=== PATIENT | female | born 1965 ===

== ENCOUNTER 2018-07-16 20:30 | Inpatient (IN) | payer OTHER ==
[2018-07-16 20:31] VITALS: BMI 54.3
[2018-07-16] MEDS ORDERED: Naloxone 0.4 mg/ml Inj (Adult) ONE (20:41)
[2018-07-16] MEDS ORDERED: Naloxone 0.4 mg/ml Inj (Adult) IVP ONE (20:57)
[2018-07-16 21:01] LABS: BASO # 0.2 K/uL (0.0-0.2); BASO % 0.8 % (0.0-2.0); EOS # 0.3 K/uL (0.0-0.7); EOS % 1.3 % (0.0-4.0); HEMOGLOBIN 15.5 g/dL (11.0-16.0); LYMPH # 10.5 K/uL (1.0-4.3); LYMPH % 46.8 % (20.0-40.0); MEAN CELL VOLUME 81.1 fL (81.0-99.0); MEAN CORPUSCULAR HGB CONC 32.1 g/dL (33.0-37.0); MONO # 1.1 K/uL (0.0-0.8); MONO % 4.9 % (0.0-10.0); NEUT # 10.3 K/uL (1.8-7.0); NEUT % 46.2 % (50.0-75.0); NRBC % 0.2 % (0.0-2.0); RBC 5.95 Mil/uL (3.80-5.20); RED CELL DISTRIBUTION WIDTH 15.5 % (11.5-14.5)
[2018-07-16 21:10] LABS: WHITE BLOOD COUNT 22.4 K/uL (4.8-10.8)
[2018-07-16] MEDS ORDERED: Sodium Chloride 0.9% 1,000 ML IV ONE ×2 (21:12→21:38)
[2018-07-16 21:13] LABS: INR 1.1; PROTHROMBIN TIME 12.3 SECONDS (9.7-12.2)
[2018-07-16 21:14] LABS: ACETAMINOPHEN < 10.0 ug/mL (10.0-30.0); SALICYLATE < 1.0 {null, mg/dL 1}
[2018-07-16] MEDS ORDERED: Hum Prothrombin CPLX(PCC)4FACT 1 Unit Inj IV ONE ×4 (21:37→22:00)
[2018-07-16] MEDS ORDERED: Propofol 10 mg/ml 1,000 MG/100 ML VIAL IV PRN (21:40)
[2018-07-16 21:49] LABS: ARTERIAL BLOOD GAS HCO3 22.2 mmol/L (21-28); ARTERIAL BLOOD GAS O2 SAT 100.2 % (95-98); ARTERIAL BLOOD GAS PCO2 33 mm/Hg (35-45); ARTERIAL BLOOD GAS PO2 294 mm/Hg (80-100); ARTERIAL BLOOD GAS TCO2 21.4 mmol/L (22-28)
[2018-07-16 21:54] LABS: BARBITURATES, UR NEGATIVE (NEGATIVE); BENZODIAZEPINES, UR NEGATIVE (NEGATIVE); OPIATES, UR NEGATIVE (NEGATIVE); PHENCYCLIDINE, UR NEGATIVE (NEGATIVE)
[2018-07-16 22:11] LABS: ALB/GLOB RATIO 1.2 (1.0-2.1); ALBUMIN 3.3 g/dL (3.5-5.0); ALT/SGPT 13 U/L (9-52); AST/SGOT 21 U/L (14-36); BLOOD UREA NITROGEN 20 mg/dL (7-17); CALCIUM 8.6 mg/dl (8.6-10.4); GFR NON-AFRICAN AMERICAN > 60
--- NOTE | 2018-07-16 22:11 | C.PDOC ---
History Of Present Illness 52-year-old female is brought to the ED by EMS for evaluation of altered mental status. As per friend at bedside, patient was at a food bank meeting when she suddenly became unresponsive. EMS was called and patient was brought into the ED by BLS. Patient arrived to the ED unresponsive and required my immediate attention. Additional information limited secondary to patient's clinical condition. Time Seen by Provider: 07/16/18 20:51 Chief Complaint (Nursing): Altered Mental Status History Per: EMS, Other (friend ) History/Exam Limitations: Other (clinical condition ) Onset Of Symptoms: Cannot Confirm Onset Current Symptoms Are (Timing): Still Present Usual Baseline: Unknown Exacerbating Factor(s): Unknown Past Medical History Reviewed: Historical Data, Nursing Documentation, Vital Signs Vital Signs: Last Vital Signs Temp Pulse 86 07/16/18 22:08 Resp 12 07/16/18 22:08 BP 87/61 L 07/16/18 22:08 Pulse Ox 100 07/16/18 22:08 - Medical History PMH: Anemia, Asthma, HTN, Peripheral Edema, Sleep Apnea (NO LONGER HAS IT) Denies: Chronic Kidney Disease Surgical History: Endoscopy - [facility] Procedures COLONOSCOPY (01/06/14) DESTRUCT PERITONEAL TISS (01/04/15) ESOPHAGOGASTRODUODENOSCOPY [EGD] W/CLOSED BIOPSY (01/06/14) LAPAROSCOP LYSIS-PERITONEAL ADHES (01/04/15) LAPAROSCOP REMOVE OVARIES/TUBES (11/02/13) LAPAROSCOPIC REPAIR OF DIAPHRAGMATIC HRN, ABDOMINAL APPROACH (01/04/15) LAPAROSCOPIC ROBOTIC ASSISTED PROCEDURE (01/04/15) LAPAROSCOPIC TOTAL ABDOMINAL HYSTERECTOMY (11/02/13) LAPAROSCOPIC VERTICAL (SLEEVE) GASTRECTOMY (01/04/15) LAPAROTOMY NEC (01/04/15) OTHER ENDOSCOPY OF SM INTEST (01/04/15) VACCINATION NEC (11/02/13) Family History: States: Unknown Family Hx - Social History Hx Alcohol Use: No Hx Substance Use: No - Immunization History Hx Tetanus Toxoid Vaccination: No Hx Influenza Vaccination: No Hx Pneumococcal Vaccination: No Review Of Systems Review Of Systems: ROS cannot be obtained secondary to pt's inabilty to answer questions. Physical Exam - Physical Exam Appears: Non-toxic, In Acute Distress Skin: Normal Color, Warm, Dry Head: Atraumatic, Normacephalic Eye(s): bilateral: Other (pupils dilated, non-reactive ) Oral Mucosa: Moist Lips: Normal Appearing Teeth: Normal Dentition Neck: Normal Chest: Symmetrical Cardiovascular: Rhythm Regular Respiratory: Other (coarse bs bilaterally ) Back: Normal Inspection Neurological/Psych: Other (unresponsive ) ED Course And Treatment - Laboratory Results Result Diagrams: 07/17/18 07:15 07/17/18 07:11 Lab Results: Puncture Site Rra 07/16/18 21:46 pCO2 33 mm/Hg (35-45) L 07/16/18 21:46 pO2 294 mm/Hg (80-100) H 07/16/18 21:46 HCO3 22.2 mmol/L (21-28) 07/16/18 21:46 ABG pH 7.40 (7.35-7.45) 07/16/18 21:46 ABG Total CO2 21.4 mmol/L (22-28) L 07/16/18 21:46 ABG O2 Saturation 100.2 % (95-98) H 07/16/18 21:46 ABG Base Excess -3.6 mmol/L (-2.0-3.0) L 07/16/18 21:46 Leobardo Test Na 07/16/18 21:46 ABG Potassium 2.4 mmol/L (3.6-5.2) L* 07/16/18 21:46 A-a O2 Difference 378.0 mm/Hg 07/16/18 21:46 Respiratory Index 1.3 07/16/18 21:46 Sodium 140.0 mmol/l (132-148) 07/16/18 21:46 Chloride 112.0 mmol/L (98-107) H 07/16/18 21:46 Glucose 141 mg/dl (65-105) H 07/16/18 21:46 Lactate 1.6 mmol/L (0.7-2.1) 07/16/18 21:46 Vent Mode Prvc 07/16/18 21:46 Mechanical Rate 12 07/16/18 21:46 FiO2 100.0 % 07/16/18 21:46 Tidal Volume 600 07/16/18 21:46 PEEP 5 07/16/18 21:46 Crit Value Called To Funmilayo gray rn 07/16/18 21:46 Crit Value Called By Cony 07/16/18 21:46 Crit Value Read Back Y 07/16/18 21:46 Blood Gas Notified Time 214807/16/18 21:46 PT 12.3 SECONDS (9.7-12.2) H 07/16/18 20:57 INR 1.1 07/16/18 20:57 APTT 34 SECONDS (21-34) 07/16/18 20:57 ECG: Interpreted By Me, Viewed By Me ECG Rhythm: Sinus Tachycardia Interpretation Of ECG: Sinus Tachycardia at rate 129bpm/ Left axis deviation. Frequent PVCs and LVH noted. Nonspecific ST/T wave changes. Rate From EC O2 Sat by Pulse Oximetry: 100 - CT Scan/US CT Head Other Rad Studies (CT/US): Read By Radiologist, Radiology Report Reviewed CT/US Interpretation: EXAM: CT Head without Intravenous Contrast. CLINICAL HISTORY: Unresponsive. TECHNIQUE: Axial computed tomography images of the head/brain without intravenous contrast. 0.00 mGy-cm. COMPARISON: None provided. FINDINGS: BRAIN. There may be a small amount of subdural l blood along the tentorium cerebelli and perhaps in the falx cerebri as well. VENTRICLES: There is acute hemorrhage within the left cerebral hemisphere in the frontoparietal region and extending near the [place]. This may represent bleeding from ruptured aneurysm in the [place]. The largest a conglomerate portion of the bleed measures 5.3 x 3.0 cm on series 2, image 11. There is extensive left to right midline shift measuring at least 8 mm. There is effacement of the left lateral ventricle. There is associated brain edema most notably near the main portion of the hemorrhage. There is additional effacement of the 4th ventricle. Cannot exclude cerebellar tonsillar herniation. There appears to be crowding of the cerebellar tonsils at the foramen magnum. ORBITS: The orbits are unremarkable. SINUSES AND MASTOIDS: The paranasal sinuses and mastoid air cells are clear. BONES: No fracture. SOFT TISSUES: Unremarkable. IMPRESSION: 1. There is acute hemorrhage within the left cerebral hemisphere in the frontoparietal region and extending near the [place]. This may represent bleeding from ruptured aneurysm in the [place]. The largest a conglomerate portion of the bleed measures 5.3 x 3.0 cm on series 2, image 11. There is extensive left to right midline shift measuring at least 8 mm. There is effacement of the left lateral ventricle. There is extensive associated brain edema most notably near the main portion of the hemorrhage. There is effacement of the 4th ventricle as well. 2. There may be a small amount of subdural l blood along the tentorium cerebelli and perhaps in the falx cerebri as well. 3. Cannot exclude cerebellar tonsillar herniation on the current study. 4. These critical findings are being immediately telephoned to the referring clinicians at the time of this interpretation. Critical Care Time - Critical Care Note Total Time (in mins): 55 Documented critical care: time excludes all time spent performing seperately billable procedures. Endotracheal Intubation - Endotracheal Intubation Intubated: Orally Post-Intubation Assessment: ETT Secured AT (cm): (22), Breath Sounds Equal Bilat, Placement Confirmed Via CXR, Color Change W/End Tidal CO2 Detector Medical Decision Making Medical Decision Making: Impression: 52 year old female, unresponsive Plan: * bloodwork * CT Head * reassess and disposition Progress: A time-out was completed verifying correct patient, procedure, site, positioning, and special equipment if applicable. A 6.5-gibraltarian endotracheal tube was inserted and good condensation of the tube noted. Good end-tidal CO2 noted. Breath sounds were heard in both lung chanel equally. The endotracheal tube was placed at 22 cm, measured at the lip. CXR: shows no active disease. Tip of ET tube at the melissa. Case immediately discussed with Dr. Michael Muhammad (Medical Clerical Assistant collection systems modeler), who evaluated the patient at bedside. CT Head results demonstrated as reported. Case discussed with Dr. Flores (neurosurgeon collection systems modeler), who states patient does not qualify as a surgical candidate. Case discussed with Dr. Reis. Patient accepted to the ICU for admission. vice president of manufacturing notified. Disposition Discussed With : Edwardo Reis Jr. Doctor Will See Patient In The: Hospital Counseled Patient/Family Regarding: Studies Performed, Diagnosis - Disposition Disposition: HOSPITALIZED Disposition Time: 22:11 Condition: FAIR - Clinical Impression Clinical Impression: Intracranial hemorrhage - Scribe Statement The provider has reviewed the documentation as recorded by the Scribe (Amada Muhammad) Provider Attestation: All medical record entries made by the Scribe were at my direction and personally dictated by me. I have reviewed the chart and agree that the record accurately reflects my personal performance of the history, physical exam, medical decision making, and the department course for this patient. I have also personally directed, reviewed, and agree with the discharge instructions and disposition.
[2018-07-16 22:21] LABS: B-TYPE NATRIURETIC PEPTIDE 296 pg/mL (0-900)
--- NOTE | 2018-07-16 22:45 | CP.PCM.HP ---
History of Present Illness - History of Present Illness History of Present Illness: H&P for Dr. Reis. 52-year-old female is brought to the ED by EMS for evaluation of altered mental status. History is obtained via chart review and family members due to clinical condition. Reportedly, patient was at a meeting with a friend when she suddenly became unresponsive. EMS was called and patient was brought into the ED by BLS. Patient was intubated in the field. Unable to obtain further hx PMHx: HNT PSHx: Gastric sleeve Family Hx: grandmother-stroke Social hx: Family denies tobacco, alcohol, drugs, works as a home health aide Meds: unkown Allergies: NKDA Present on Admission - Present on Admission Any Indicators Present on Admission: No Review of Systems - Review of Systems Systems not reviewed;Unavailable: Intubated Past Patient History - Infectious Disease Hx of Infectious Diseases: None - Past Medical History & Family History Past Medical History?: Yes - Past Social History Smoking Status: Never Smoked - CARDIAC Hx Hypertension: Yes Hx Peripheral Edema: Yes - PULMONARY Hx Asthma: Yes Hx Sleep Apnea: Yes (NO LONGER HAS IT) - NEUROLOGICAL Hx Neurological Disorder: No - HEENT Hx HEENT Problems: Yes (NEARSIGHTEDNESS) - RENAL Hx Chronic Kidney Disease: No - ENDOCRINE/METABOLIC Hx Endocrine Disorders: No - HEMATOLOGICAL/ONCOLOGICAL Hx Anemia: Yes - INTEGUMENTARY Hx Dermatological Problems: No - MUSCULOSKELETAL/RHEUMATOLOGICAL Hx Musculoskeletal Disorders: Yes Hx Back Pain: Yes Hx Herniated Disk: Yes (LUMBAR SPINE) - GASTROINTESTINAL Hx Gastrointestinal Disorders: No - GENITOURINARY/GYNECOLOGICAL Hx Genitourinary Disorders: Yes (HX FIBROID UTERUS HYSTERECTOMY) - PSYCHIATRIC Hx Substance Use: No - SURGICAL HISTORY Hx Surgeries: Yes (EPIDURAL INJECTION IN BACK 11/27/13) Hx Section: Yes (1985, 1989, 1990) Hx Dilation and Curettage: Yes (2010, 2013) Hx Gastric Bypass Surgery: Yes (GASTRIC SLEEVE) Hx Hysterectomy: Yes Hx Tubal Ligation: Yes (1990) - ANESTHESIA Hx Anesthesia: Yes Hx Anesthesia Reactions: No Hx Malignant Hyperthermia: No Meds Allergies/Adverse Reactions: Allergies Allergy/AdvReac Type Severity Reaction Status Date / Time No Known Allergies Allergy Verified 07/16/18 20:42 Physical Exam - Constitutional Appears: Other (Intubated and sedated) - Head Exam Head Exam: ATRAUMATIC, NORMOCEPHALIC - Eye Exam Additional comments: Pubils are dilated and unresponsive to light. - Respiratory Exam Respiratory Exam: Clear to Auscultation Bilateral. absent: Rales, Rhonchi, Wheezes Additional comments: Intubated. Rate 12, volume 0.5, Peep 5, FiO2 - Cardiovascular Exam Cardiovascular Exam: REGULAR RHYTHM, +S1, +S2 - GI/Abdominal Exam GI & Abdominal Exam: Soft. absent: Guarding, Rebound, Tenderness Additional comments: surgical scare well healed - Extremities Exam Extremities exam: Positive for: normal inspection, pedal pulses present. Negative for: pedal edema, tenderness - Neurological Exam Additional comments: Intubated, sedated, Pupils dilated and non reactive, no corneal reflex, no dolls eyes, no gag reflex. Does not withdraw to pain Results - Vital Signs Recent Vital Signs: Last Vital Signs Temp 97.0 F L 07/16/18 22:42 Pulse 84 07/16/18 22:42 Resp 12 07/16/18 22:42 BP 117/85 07/16/18 22:42 Pulse Ox 100 07/16/18 22:43 - Labs Result Diagrams: 07/17/18 07:15 07/17/18 07:11 Labs: Laboratory Results - last 24 hr 07/16/18 07/16/18 07/16/18 20:33 20:57 20:57 WBC 22.4 H D RBC 5.95 H Hgb 15.5 D Hct 48.2 H MCV 81.1 D MCH 26.0 L MCHC 32.1 L RDW 15.5 H Plt Count 428 H D MPV 10.0 Neut % (Auto) 46.2 L Lymph % (Auto) 46.8 H [place] % (Auto) 4.9 Eos % (Auto) 1.3 Baso % (Auto) 0.8 Neut # (Auto) 10.3 H Lymph # (Auto) 10.5 H [place] # (Auto) 1.1 H Eos # (Auto) 0.3 Baso # (Auto) 0.2 Differential Comment PT 12.3 H INR 1.1 APTT 34 Puncture Site pCO2 pO2 HCO3 ABG pH ABG Total CO2 ABG O2 Saturation ABG Base Excess Leobardo Test ABG Potassium A-a O2 Difference Respiratory Index Glucose Lactate Vent Mode Mechanical Rate FiO2 Tidal Volume PEEP Crit Value Called To Crit Value Called By Crit Value Read Back Blood Gas Notified Time Sodium Potassium Chloride Carbon Dioxide Anion Gap BUN Creatinine Est GFR ( Amer) Est GFR (Non-Af Amer) POC Glucose (mg/dL) 155 H Random Glucose Lactic Acid Calcium Phosphorus Magnesium Total Bilirubin AST ALT Alkaline Phosphatase Ammonia Troponin I NT-Pro-B Natriuret Pep Total Protein Albumin Globulin Albumin/Globulin Ratio Arterial Blood Potassium Salicylates Urine Opiates Screen Urine Methadone Screen Acetaminophen Ur Barbiturates Screen Ur Phencyclidine Scrn Ur Amphetamines Screen U Benzodiazepines Scrn U Oth Cocaine Metabols U Cannabinoids Screen Alcohol, Quantitative Blood Type Antibody Screen 07/16/18 07/16/18 07/16/18 20:57 20:57 21:21 WBC RBC Hgb Hct MCV MCH MCHC RDW Plt Count MPV Neut % (Auto) Lymph % (Auto) [place] % (Auto) Eos % (Auto) Baso % (Auto) Neut # (Auto) Lymph # (Auto) [place] # (Auto) Eos # (Auto) Baso # (Auto) Differential Comment PT INR APTT Puncture Site pCO2 pO2 HCO3 ABG pH ABG Total CO2 ABG O2 Saturation ABG Base Excess Leobardo Test ABG Potassium A-a O2 Difference Respiratory Index Glucose Lactate Vent Mode Mechanical Rate FiO2 Tidal Volume PEEP Crit Value Called To Crit Value Called By Crit Value Read Back Blood Gas Notified Time Sodium Potassium Chloride Carbon Dioxide Anion Gap BUN Creatinine Est GFR ( Amer) Est GFR (Non-Af Amer) POC Glucose (mg/dL) Random Glucose Lactic Acid Calcium Phosphorus Magnesium Total Bilirubin AST ALT Alkaline Phosphatase Ammonia Troponin I NT-Pro-B Natriuret Pep Total Protein Albumin Globulin Albumin/Globulin Ratio Arterial Blood Potassium Salicylates < 1.0 Urine Opiates Screen Negative Urine Methadone Screen Negative Acetaminophen < 10.0 L Ur Barbiturates Screen Negative Ur Phencyclidine Scrn Negative Ur Amphetamines Screen Negative U Benzodiazepines Scrn Negative U Oth Cocaine Metabols Negative U Cannabinoids Screen Negative Alcohol, Quantitative Blood Type A POSITIVE Antibody Screen Negative 07/16/18 07/16/18 07/16/18 21:43 21:43 21:43 WBC RBC Hgb Hct MCV MCH MCHC RDW Plt Count MPV Neut % (Auto) Lymph % (Auto) [place] % (Auto) Eos % (Auto) Baso % (Auto) Neut # (Auto) Lymph # (Auto) [place] # (Auto) Eos # (Auto) Baso # (Auto) Differential Comment PT INR APTT Puncture Site pCO2 pO2 HCO3 ABG pH ABG Total CO2 ABG O2 Saturation ABG Base Excess Leobardo Test ABG Potassium A-a O2 Difference Respiratory Index Glucose Lactate Vent Mode Mechanical Rate FiO2 Tidal Volume PEEP Crit Value Called To Crit Value Called By Crit Value Read Back Blood Gas Notified Time Sodium 138 Potassium 2.9 L Chloride 108 H Carbon Dioxide 21 L Anion Gap 12 BUN 20 H Creatinine 0.8 Est GFR ( Amer) > 60 Est GFR (Non-Af Amer) > 60 POC Glucose (mg/dL) Random Glucose 147 H D Lactic Acid 1.8 Calcium 8.6 Phosphorus 4.2 Magnesium 1.8 Total Bilirubin 0.3 AST 21 ALT 13 Alkaline Phosphatase 72 Ammonia < 9 L Troponin I 0.0400 NT-Pro-B Natriuret Pep 296 Total Protein 5.9 L Albumin 3.3 L Globulin 2.6 Albumin/Globulin Ratio 1.2 Arterial Blood Potassium Salicylates Urine Opiates Screen Urine Methadone Screen Acetaminophen Ur Barbiturates Screen Ur Phencyclidine Scrn Ur Amphetamines Screen U Benzodiazepines Scrn U Oth Cocaine Metabols U Cannabinoids Screen Alcohol, Quantitative < 10 Blood Type Antibody Screen 07/16/18 21:46 WBC RBC Hgb Hct MCV MCH MCHC RDW Plt Count MPV Neut % (Auto) Lymph % (Auto) [place] % (Auto) Eos % (Auto) Baso % (Auto) Neut # (Auto) Lymph # (Auto) [place] # (Auto) Eos # (Auto) Baso # (Auto) Differential Comment PT INR APTT Puncture Site Rra pCO2 33 L pO2 294 H HCO3 22.2 ABG pH 7.40 ABG Total CO2 21.4 L ABG O2 Saturation 100.2 H ABG Base Excess -3.6 L Leobardo Test Na ABG Potassium 2.4 L* A-a O2 Difference 378.0 Respiratory Index 1.3 Glucose 141 H Lactate 1.6 Vent Mode Prvc Mechanical Rate 12 FiO2 100.0 Tidal Volume 600 PEEP 5 Crit Value Called To Funmilayo gray rn Crit Value Called By Cony Crit Value Read Back Y Blood Gas Notified Time 2149 Sodium 140.0 Potassium Chloride 112.0 H Carbon Dioxide Anion Gap BUN Creatinine Est GFR ( Amer) Est GFR (Non-Af Amer) POC Glucose (mg/dL) Random Glucose Lactic Acid Calcium Phosphorus Magnesium Total Bilirubin AST ALT Alkaline Phosphatase Ammonia Troponin I NT-Pro-B Natriuret Pep Total Protein Albumin Globulin Albumin/Globulin Ratio Arterial Blood Potassium 2.4 L* Salicylates Urine Opiates Screen Urine Methadone Screen Acetaminophen Ur Barbiturates Screen Ur Phencyclidine Scrn Ur Amphetamines Screen U Benzodiazepines Scrn U Oth Cocaine Metabols U Cannabinoids Screen Alcohol, Quantitative Blood Type Antibody Screen Assessment & Plan - Assessment and Plan (Free Text) Plan: 52 year old female with acute intracranial hemorrhage Intracranial hemorrhage CT head: Hemorrhage to L cerebral hemisphere. L to R midline shift (see full report) Neurosurgery consulted- Patient not surgical candidate ICU consulted- patient accepted Intubated Propofol drip Hypotension Nicardine drip NS @ 75mls/hr PPx SCD Protonix VTE contraindicated Dispo: poor prognosis Discussed with Dr. Smiley Frank, PGY-1
[2018-07-16] MEDS ORDERED: cefTRIAXone 2 GM IN NS 2 GM/100 ML BAG IVPB SCH (23:30)
--- NOTE | 2018-07-16 23:55 | CP.PCM.CON ---
History of Present Illness - History of Present Illness History of Present Illness: 52 y/o female with unknown PMx presents to [facility] found unconscious and was intubated in the field. ICU consulted for evaluation. Patient not responsive, pupils not reactive. Patient is not responsive. ROS: limited 2nd AMS Pmx: reviewed, unable to obtain. Psurg: gastric surgery Allergeis: known SH: [email or web address] Review of Systems - Review of Systems Systems not reviewed;Unavailable: Intubated Past Patient History - Infectious Disease Hx of Infectious Diseases: None - Tetanus Immunizations Tetanus Immunization: Unknown - Past Medical History & Family History Past Medical History?: Yes - Past Social History Smoking Status: Never Smoked - CARDIAC Hx Hypertension: Yes Hx Peripheral Edema: Yes - PULMONARY Hx Asthma: Yes Hx Sleep Apnea: Yes (NO LONGER HAS IT) - NEUROLOGICAL Hx Neurological Disorder: No - HEENT Hx HEENT Problems: Yes (NEARSIGHTEDNESS) - RENAL Hx Chronic Kidney Disease: No - ENDOCRINE/METABOLIC Hx Endocrine Disorders: No - HEMATOLOGICAL/ONCOLOGICAL Hx Anemia: Yes - INTEGUMENTARY Hx Dermatological Problems: No - MUSCULOSKELETAL/RHEUMATOLOGICAL Hx Musculoskeletal Disorders: Yes Hx Back Pain: Yes Hx Herniated Disk: Yes (LUMBAR SPINE) - GASTROINTESTINAL Hx Gastrointestinal Disorders: No - GENITOURINARY/GYNECOLOGICAL Hx Genitourinary Disorders: Yes (HX FIBROID UTERUS HYSTERECTOMY) - PSYCHIATRIC Hx Substance Use: No - SURGICAL HISTORY Hx Surgeries: Yes (EPIDURAL INJECTION IN BACK 11/27/13) Hx Section: Yes (1985, 1989, 1990) Hx Dilation and Curettage: Yes (2010, 2013) Hx Gastric Bypass Surgery: Yes (GASTRIC SLEEVE) Hx Hysterectomy: Yes Hx Tubal Ligation: Yes (1990) - ANESTHESIA Hx Anesthesia: Yes Hx Anesthesia Reactions: No Hx Malignant Hyperthermia: No Meds Allergies/Adverse Reactions: Allergies Allergy/AdvReac Type Severity Reaction Status Date / Time No Known Allergies Allergy Verified 07/16/18 20:42 - Medications Medications: Current Medications Albuterol/Ipratropium (Duoneb 3 Mg/0.5 Mg (3 Ml) Ud) 3 ml INH RQ6 DONALDO Sodium Chloride (Sodium Chloride 0.9%) 1,000 mls @ 75 mls/hr IV .[id number] ONE Stop: 07/17/18 10:57 Last Admin: 07/16/18 22:00 Dose: 75 mls/hr Levetiracetam 500 mg/ Dextrose 105 mls @ 420 mls/hr IVPB Q12H DONALDO Last Admin: 07/16/18 22:00 Dose: 420 mls/hr Propofol (Diprivan) 1,000 mg in 100 mls @ 2.858 mls/hr IV .Q24H PRN; Protocol PRN Reason: TITRATE PER MD ORDER Vancomycin/Sodium Chloride (Vancomycin 1 Gm/Ns 200 Ml) 1 gm in 200 mls @ 133 mls/hr IVPB Q12H DONALDO; Protocol Stop: 07/22/18 00:01 Ceftriaxone Sodium 2 gm/ (Sodium Chloride) 100 mls @ 200 mls/hr IVPB Q12H DONALDO; Protocol Physical Exam - Constitutional Appears: Non-toxic, No Acute Distress - Head Exam Head Exam: ATRAUMATIC, NORMAL INSPECTION, NORMOCEPHALIC - Eye Exam Eye Exam: Normal appearance Pupil Exam: Fixed. absent: Miosis, Mydriatic, NORMAL ACCOMODATION, PERRL - ENT Exam ENT Exam: Mucous Membranes Moist - Respiratory Exam Respiratory Exam: Clear to Auscultation Bilateral, NORMAL BREATHING PATTERN. absent: Rhonchi, Wheezes, Respiratory Distress, Stridor - Cardiovascular Exam Cardiovascular Exam: REGULAR RHYTHM, +S1, +S2 - GI/Abdominal Exam GI & Abdominal Exam: Normal Bowel Sounds - Extremities Exam Extremities exam: Positive for: normal inspection - Neurological Exam Neurological exam: Altered - Skin Skin Exam: Normal Color, Warm Results - Vital Signs Recent Vital Signs: Last Vital Signs Temp 97.0 F L 07/16/18 22:42 Pulse 84 07/16/18 22:42 Resp 12 07/16/18 22:42 BP 117/85 07/16/18 22:42 Pulse Ox 100 07/16/18 22:43 - Labs Result Diagrams: 07/16/18 20:57 07/16/18 21:43 Labs: Laboratory Results - last 24 hr 07/16/18 07/16/18 07/16/18 20:33 20:57 20:57 WBC 22.4 H D RBC 5.95 H Hgb 15.5 D Hct 48.2 H MCV 81.1 D MCH 26.0 L MCHC 32.1 L RDW 15.5 H Plt Count 428 H D MPV 10.0 Neut % (Auto) 46.2 L Lymph % (Auto) 46.8 H Terry % (Auto) 4.9 Eos % (Auto) 1.3 Baso % (Auto) 0.8 Neut # (Auto) 10.3 H Lymph # (Auto) 10.5 H Terry # (Auto) 1.1 H Eos # (Auto) 0.3 Baso # (Auto) 0.2 Differential Comment PT 12.3 H INR 1.1 APTT 34 Fibrinogen Puncture Site pCO2 pO2 HCO3 ABG pH ABG Total CO2 ABG O2 Saturation ABG Base Excess Leobardo Test ABG Potassium A-a O2 Difference Respiratory Index Glucose Lactate Vent Mode Mechanical Rate FiO2 Tidal Volume PEEP Crit Value Called To Crit Value Called By Crit Value Read Back Blood Gas Notified Time Sodium Potassium Chloride Carbon Dioxide Anion Gap BUN Creatinine Est GFR ( Amer) Est GFR (Non-Af Amer) POC Glucose (mg/dL) 155 H Random Glucose Lactic Acid Calcium Phosphorus Magnesium Total Bilirubin AST ALT Alkaline Phosphatase Ammonia Troponin I NT-Pro-B Natriuret Pep Total Protein Albumin Globulin Albumin/Globulin Ratio Arterial Blood Potassium Salicylates Urine Opiates Screen Urine Methadone Screen Acetaminophen Ur Barbiturates Screen Ur Phencyclidine Scrn Ur Amphetamines Screen U Benzodiazepines Scrn U Oth Cocaine Metabols U Cannabinoids Screen Alcohol, Quantitative Blood Type Antibody Screen 07/16/18 07/16/18 07/16/18 20:57 20:57 21:21 WBC RBC Hgb Hct MCV MCH MCHC RDW Plt Count MPV Neut % (Auto) Lymph % (Auto) Terry % (Auto) Eos % (Auto) Baso % (Auto) Neut # (Auto) Lymph # (Auto) Terry # (Auto) Eos # (Auto) Baso # (Auto) Differential Comment PT INR APTT Fibrinogen Puncture Site pCO2 pO2 HCO3 ABG pH ABG Total CO2 ABG O2 Saturation ABG Base Excess Leobardo Test ABG Potassium A-a O2 Difference Respiratory Index Glucose Lactate Vent Mode Mechanical Rate FiO2 Tidal Volume PEEP Crit Value Called To Crit Value Called By Crit Value Read Back Blood Gas Notified Time Sodium Potassium Chloride Carbon Dioxide Anion Gap BUN Creatinine Est GFR ( Amer) Est GFR (Non-Af Amer) POC Glucose (mg/dL) Random Glucose Lactic Acid Calcium Phosphorus Magnesium Total Bilirubin AST ALT Alkaline Phosphatase Ammonia Troponin I NT-Pro-B Natriuret Pep Total Protein Albumin Globulin Albumin/Globulin Ratio Arterial Blood Potassium Salicylates < 1.0 Urine Opiates Screen Negative Urine Methadone Screen Negative Acetaminophen < 10.0 L Ur Barbiturates Screen Negative Ur Phencyclidine Scrn Negative Ur Amphetamines Screen Negative U Benzodiazepines Scrn Negative U Oth Cocaine Metabols Negative U Cannabinoids Screen Negative Alcohol, Quantitative Blood Type A POSITIVE Antibody Screen Negative 07/16/18 07/16/18 07/16/18 21:43 21:43 21:43 WBC RBC Hgb Hct MCV MCH MCHC RDW Plt Count MPV Neut % (Auto) Lymph % (Auto) Terry % (Auto) Eos % (Auto) Baso % (Auto) Neut # (Auto) Lymph # (Auto) Terry # (Auto) Eos # (Auto) Baso # (Auto) Differential Comment PT INR APTT Fibrinogen Puncture Site pCO2 pO2 HCO3 ABG pH ABG Total CO2 ABG O2 Saturation ABG Base Excess Leobardo Test ABG Potassium A-a O2 Difference Respiratory Index Glucose Lactate Vent Mode Mechanical Rate FiO2 Tidal Volume PEEP Crit Value Called To Crit Value Called By Crit Value Read Back Blood Gas Notified Time Sodium 138 Potassium 2.9 L Chloride 108 H Carbon Dioxide 21 L Anion Gap 12 BUN 20 H Creatinine 0.8 Est GFR ( Amer) > 60 Est GFR (Non-Af Amer) > 60 POC Glucose (mg/dL) Random Glucose 147 H D Lactic Acid 1.8 Calcium 8.6 Phosphorus 4.2 Magnesium 1.8 Total Bilirubin 0.3 AST 21 ALT 13 Alkaline Phosphatase 72 Ammonia < 9 L Troponin I 0.0400 NT-Pro-B Natriuret Pep 296 Total Protein 5.9 L Albumin 3.3 L Globulin 2.6 Albumin/Globulin Ratio 1.2 Arterial Blood Potassium Salicylates Urine Opiates Screen Urine Methadone Screen Acetaminophen Ur Barbiturates Screen Ur Phencyclidine Scrn Ur Amphetamines Screen U Benzodiazepines Scrn U Oth Cocaine Metabols U Cannabinoids Screen Alcohol, Quantitative < 10 Blood Type Antibody Screen 07/16/18 07/16/18 21:46 22:56 WBC RBC Hgb Hct MCV MCH MCHC RDW Plt Count MPV Neut % (Auto) Lymph % (Auto) Terry % (Auto) Eos % (Auto) Baso % (Auto) Neut # (Auto) Lymph # (Auto) Terry # (Auto) Eos # (Auto) Baso # (Auto) Differential Comment PT INR APTT Fibrinogen 221 Puncture Site Rra pCO2 33 L pO2 294 H HCO3 22.2 ABG pH 7.40 ABG Total CO2 21.4 L ABG O2 Saturation 100.2 H ABG Base Excess -3.6 L Leobardo Test Na ABG Potassium 2.4 L* A-a O2 Difference 378.0 Respiratory Index 1.3 Glucose 141 H Lactate 1.6 Vent Mode Prvc Mechanical Rate 12 FiO2 100.0 Tidal Volume 600 PEEP 5 Crit Value Called To Funmilayo gray rn Crit Value Called By Cony Crit Value Read Back Y Blood Gas Notified Time 2148 Sodium 140.0 Potassium Chloride 112.0 H Carbon Dioxide Anion Gap BUN Creatinine Est GFR ( Amer) Est GFR (Non-Af Amer) POC Glucose (mg/dL) Random Glucose Lactic Acid Calcium Phosphorus Magnesium Total Bilirubin AST ALT Alkaline Phosphatase Ammonia Troponin I NT-Pro-B Natriuret Pep Total Protein Albumin Globulin Albumin/Globulin Ratio Arterial Blood Potassium 2.4 L* Salicylates Urine Opiates Screen Urine Methadone Screen Acetaminophen Ur Barbiturates Screen Ur Phencyclidine Scrn Ur Amphetamines Screen U Benzodiazepines Scrn U Oth Cocaine Metabols U Cannabinoids Screen Alcohol, Quantitative Blood Type Antibody Screen Assessment & Plan - Assessment and Plan (Free Text) Assessment: -Severe ICH: infuse kecentra, maintain SBP <120, avoid antiplatelets and anticoagulants -HTN: start cardene to keep SBP <120 -NPO -BGM q6hrs -DVT ppx scds -PUD ppx protonix -GOC: patient's daughter was informed patient's condition, neurosurgery environmental health technologist was called who advised that patient has poor prognosis and will not benefit from intra-ventricular drain GOC: d/w daughter Alexis, who recommended to transfer patient to [facility] Called: [facility] transfer [phone], no beds available. Prognosis poor as GSC score 0-1, fixed and dilated pupils. -Daughters informed of patient's prognosis, Daughters insist on transfer to [facility] - Date & Time Date: 07/17/18 Time: 00:09
[2018-07-17] MEDS: niCARdipine IV 25 MG in Sodium Chloride 0.9% 240 ML IV SCH ×5 (00:30→20:35)
[2018-07-17] MEDS: cefTRIAXone 2 GM in Sodium Chloride 0.9% 100 ML IVPB SCH ×3 (00:45→23:01)
[2018-07-17] MEDS: Potassium Chloride 20 mEq/15 ml LIQ UD PO SCH ×2 (01:05→06:55)
[2018-07-17] MEDS: Vancomycin 1 gm/NS 200 ml 1 GM/200 ML BAG IVPB SCH ×3 (01:39→23:17)
--- NOTE | 2018-07-17 03:45 | PCM.SEPTIC ---
Sepsis Progress Note - Reassessment Type Date of Evaluation: 07/17/18 Reassessment Type: Non-invasive reassessment - Non Invasive Reassessment Were the most recent vital sign reviewed: Yes Vital Sign (Latest): Temp Pulse Resp BP Pulse Ox 96 F L 74 12 127/89 100 07/16/18 23:51 07/17/18 03:30 07/17/18 03:30 07/17/18 02:44 07/17/18 03:30 Cardiovascular: Yes: Regular Rate, Rhythm. No: JVD, Murmur, Tachycardia, Ectopy Respiratory: Yes: Normal Breath Sounds. No: Crackles, Rales, Rhonchi, Stridor Capillary Refill: Normal (Less than 2 sec) Pulses: Normal Radial, Normal Dorsalis Pedis, Normal Posterior Tibialis Skin: Normal Color - Invasive Reassessment (complete 2 of 4) Was a Central Venous Pressure Measurement obtained within 6 Hours after the presentation of septic shock: No Was a central venous oxygen measurement obtained within 6 hours after the presentation of septic shock: No Was a bedside cardiovascular ultrasound performed within 6 hours after the presentation of septic shock: No Was a passive leg raise performed or was a fluid challenge performed within 6 hrs of the initial fluid bolus: No Fluid Challenge performed: Yes
[2018-07-17] MEDS ORDERED: Iodixanol 320 MG/ML 100 ML BOTTLE IV ONE (05:27)
[2018-07-17 06:26] LABS: ABG ALLEN TEST POS; ARTERIAL BLOOD GAS HCO3 20.6 mmol/L (21-28); ARTERIAL BLOOD GAS HEMOGLOBIN 13.6 g/dL (11.7-17.4); ARTERIAL BLOOD GAS O2 SAT 100.2 % (95-98); ARTERIAL BLOOD GAS PCO2 35 mm/Hg (35-45); ARTERIAL BLOOD GAS PH 7.35 (7.35-7.45); ARTERIAL BLOOD GAS PO2 221 mm/Hg (80-100); ARTERIAL BLOOD GAS TCO2 20.4 mmol/L (22-28)
--- NOTE | 2018-07-17 07:17 | CP.PCM.CON ---
History of Present Illness - History of Present Illness History of Present Illness: spoke with ER,Dr Muhammad and Pt'S daughter unfotunately there is nothing to offer this Pt clinically is or close to brain CT shows scatterd ICH,SAH in and around brainstem no hydrocephalusand overt herniation would rec supportive care only consider cerebral blood flow study/contact sharing network Past Patient History - Infectious Disease Hx of Infectious Diseases: None - Tetanus Immunizations Tetanus Immunization: Unknown - Past Medical History & Family History Past Medical History?: Yes - Past Social History Smoking Status: Never Smoked - CARDIAC Hx Hypertension: Yes Hx Peripheral Edema: Yes - PULMONARY Hx Asthma: Yes Hx Sleep Apnea: Yes (NO LONGER HAS IT) - NEUROLOGICAL Hx Neurological Disorder: No - HEENT Hx HEENT Problems: Yes (NEARSIGHTEDNESS) - RENAL Hx Chronic Kidney Disease: No - ENDOCRINE/METABOLIC Hx Endocrine Disorders: No - HEMATOLOGICAL/ONCOLOGICAL Hx Anemia: Yes - INTEGUMENTARY Hx Dermatological Problems: No - MUSCULOSKELETAL/RHEUMATOLOGICAL Hx Musculoskeletal Disorders: Yes Hx Back Pain: Yes Hx Herniated Disk: Yes (LUMBAR SPINE) - GASTROINTESTINAL Hx Gastrointestinal Disorders: No - GENITOURINARY/GYNECOLOGICAL Hx Genitourinary Disorders: Yes (HX FIBROID UTERUS HYSTERECTOMY) - PSYCHIATRIC Hx Substance Use: No - SURGICAL HISTORY Hx Surgeries: Yes (EPIDURAL INJECTION IN BACK 11/27/13) Hx Section: Yes (1985, 1989, 1990) Hx Dilation and Curettage: Yes (2010, 2013) Hx Gastric Bypass Surgery: Yes (GASTRIC SLEEVE) Hx Hysterectomy: Yes Hx Tubal Ligation: Yes (1990) - ANESTHESIA Hx Anesthesia: Yes Hx Anesthesia Reactions: No Hx Malignant Hyperthermia: No Meds Allergies/Adverse Reactions: Allergies Allergy/AdvReac Type Severity Reaction Status Date / Time No Known Allergies Allergy Verified 07/16/18 20:42 - Medications Medications: Current Medications Albuterol/Ipratropium (Duoneb 3 Mg/0.5 Mg (3 Ml) Ud) 3 ml INH RQ6 DONALDO Dexamethasone (Decadron Inj) 10 mg IVP ONCE ONE Stop: 07/17/18 07:10 Dexamethasone (Decadron Inj) 4 mg IV Q6H DONALDO Sodium Chloride (Sodium Chloride 0.9%) 1,000 mls @ 75 mls/hr IV .[id number] ONE Stop: 07/17/18 10:57 Last Admin: 07/16/18 22:00 Dose: 75 mls/hr Levetiracetam 500 mg/ Dextrose 105 mls @ 420 mls/hr IVPB Q12H DONALDO Last Admin: 07/16/18 22:00 Dose: 420 mls/hr Propofol (Diprivan) 1,000 mg in 100 mls @ 2.858 mls/hr IV .Q24H PRN; Protocol PRN Reason: TITRATE PER MD ORDER Vancomycin/Sodium Chloride (Vancomycin 1 Gm/Ns 200 Ml) 1 gm in 200 mls @ 133 mls/hr IVPB Q12H DONALDO; Protocol Stop: 07/22/18 00:01 Last Admin: 07/17/18 01:39 Dose: 133 mls/hr Ceftriaxone Sodium 2 gm/ (Sodium Chloride) 100 mls @ 200 mls/hr IVPB Q12H DONALDO; Protocol Last Admin: 07/17/18 00:45 Dose: 200 mls/hr Nicardipine HCl 25 mg/ Sodium (Chloride) 250 mls @ 50 mls/hr IV .Q5H DONALDO; Protocol Last Admin: 07/17/18 05:02 Dose: Not Given Mannitol (Mannitol) 50 gm IV ONCE ONE Stop: 07/17/18 07:05 Pantoprazole Sodium (Protonix Inj) 40 mg IVP Q12H DONALDO Last Admin: 07/17/18 03:30 Dose: 40 mg Potassium Chloride (Potassium Chloride Oral Soln) 40 meq PO Q6H DONALDO Stop: 07/17/18 19:01 Last Admin: 07/17/18 01:05 Dose: 40 meq Results - Vital Signs Recent Vital Signs: Last Vital Signs Temp 96 F L 07/16/18 23:51 Pulse 74 07/17/18 03:30 Resp 12 07/17/18 03:30 BP 127/89 07/17/18 02:44 Pulse Ox 100 07/17/18 03:30 - Labs Result Diagrams: 07/16/18 20:57 07/16/18 21:43 Labs: Laboratory Results - last 24 hr 07/16/18 07/16/18 07/16/18 20:33 20:57 20:57 WBC 22.4 H D RBC 5.95 H Hgb 15.5 D Hct 48.2 H MCV 81.1 D MCH 26.0 L MCHC 32.1 L RDW 15.5 H Plt Count 428 H D MPV 10.0 Neut % (Auto) 46.2 L Lymph % (Auto) 46.8 H Radford % (Auto) 4.9 Eos % (Auto) 1.3 Baso % (Auto) 0.8 Neut # (Auto) 10.3 H Lymph # (Auto) 10.5 H [place]ford # (Auto) 1.1 H Eos # (Auto) 0.3 Baso # (Auto) 0.2 Differential Comment PT 12.3 H INR 1.1 APTT 34 Fibrinogen Puncture Site pCO2 pO2 HCO3 ABG pH ABG Total CO2 ABG O2 Saturation ABG Base Excess ABG Hemoglobin ABG Carboxyhemoglobin POC ABG HHb (Measured) ABG Methemoglobin Leobardo Test ABG Potassium A-a O2 Difference Respiratory Index Hgb O2 Saturation Glucose Lactate Vent Mode Mechanical Rate FiO2 Tidal Volume PEEP Crit Value Called To Crit Value Called By Crit Value Read Back Blood Gas Notified Time Sodium Potassium Chloride Carbon Dioxide Anion Gap BUN Creatinine Est GFR ( Amer) Est GFR (Non-Af Amer) POC Glucose (mg/dL) 155 H Random Glucose Lactic Acid Calcium Phosphorus Magnesium Total Bilirubin AST ALT Alkaline Phosphatase Ammonia Troponin I NT-Pro-B Natriuret Pep Total Protein Albumin Globulin Albumin/Globulin Ratio Arterial Blood Potassium Salicylates Urine Opiates Screen Urine Methadone Screen Acetaminophen Ur Barbiturates Screen Ur Phencyclidine Scrn Ur Amphetamines Screen U Benzodiazepines Scrn U Oth Cocaine Metabols U Cannabinoids Screen Alcohol, Quantitative Blood Type Antibody Screen 07/16/18 07/16/18 07/16/18 20:57 20:57 21:21 WBC RBC Hgb Hct MCV MCH MCHC RDW Plt Count MPV Neut % (Auto) Lymph % (Auto) [place] % (Auto) Eos % (Auto) Baso % (Auto) Neut # (Auto) Lymph # (Auto) [place] # (Auto) Eos # (Auto) Baso # (Auto) Differential Comment PT INR APTT Fibrinogen Puncture Site pCO2 pO2 HCO3 ABG pH ABG Total CO2 ABG O2 Saturation ABG Base Excess ABG Hemoglobin ABG Carboxyhemoglobin POC ABG HHb (Measured) ABG Methemoglobin Leobardo Test ABG Potassium A-a O2 Difference Respiratory Index Hgb O2 Saturation Glucose Lactate Vent Mode Mechanical Rate FiO2 Tidal Volume PEEP Crit Value Called To Crit Value Called By Crit Value Read Back Blood Gas Notified Time Sodium Potassium Chloride Carbon Dioxide Anion Gap BUN Creatinine Est GFR ( Amer) Est GFR (Non-Af Amer) POC Glucose (mg/dL) Random Glucose Lactic Acid Calcium Phosphorus Magnesium Total Bilirubin AST ALT Alkaline Phosphatase Ammonia Troponin I NT-Pro-B Natriuret Pep Total Protein Albumin Globulin Albumin/Globulin Ratio Arterial Blood Potassium Salicylates < 1.0 Urine Opiates Screen Negative Urine Methadone Screen Negative Acetaminophen < 10.0 L Ur Barbiturates Screen Negative Ur Phencyclidine Scrn Negative Ur Amphetamines Screen Negative U Benzodiazepines Scrn Negative U Oth Cocaine Metabols Negative U Cannabinoids Screen Negative Alcohol, Quantitative Blood Type A POSITIVE Antibody Screen Negative 07/16/18 07/16/18 07/16/18 21:43 21:43 21:43 WBC RBC Hgb Hct MCV MCH MCHC RDW Plt Count MPV Neut % (Auto) Lymph % (Auto) [place] % (Auto) Eos % (Auto) Baso % (Auto) Neut # (Auto) Lymph # (Auto) [place] # (Auto) Eos # (Auto) Baso # (Auto) Differential Comment PT INR APTT Fibrinogen Puncture Site pCO2 pO2 HCO3 ABG pH ABG Total CO2 ABG O2 Saturation ABG Base Excess ABG Hemoglobin ABG Carboxyhemoglobin POC ABG HHb (Measured) ABG Methemoglobin Leobardo Test ABG Potassium A-a O2 Difference Respiratory Index Hgb O2 Saturation Glucose Lactate Vent Mode Mechanical Rate FiO2 Tidal Volume PEEP Crit Value Called To Crit Value Called By Crit Value Read Back Blood Gas Notified Time Sodium 138 Potassium 2.9 L Chloride 108 H Carbon Dioxide 21 L Anion Gap 12 BUN 20 H Creatinine 0.8 Est GFR ( Amer) > 60 Est GFR (Non-Af Amer) > 60 POC Glucose (mg/dL) Random Glucose 147 H D Lactic Acid 1.8 Calcium 8.6 Phosphorus 4.2 Magnesium 1.8 Total Bilirubin 0.3 AST 21 ALT 13 Alkaline Phosphatase 72 Ammonia < 9 L Troponin I 0.0400 NT-Pro-B Natriuret Pep 296 Total Protein 5.9 L Albumin 3.3 L Globulin 2.6 Albumin/Globulin Ratio 1.2 Arterial Blood Potassium Salicylates Urine Opiates Screen Urine Methadone Screen Acetaminophen Ur Barbiturates Screen Ur Phencyclidine Scrn Ur Amphetamines Screen U Benzodiazepines Scrn U Oth Cocaine Metabols U Cannabinoids Screen Alcohol, Quantitative < 10 Blood Type Antibody Screen 07/16/18 07/16/18 07/17/18 21:46 22:56 02:19 WBC RBC Hgb Hct MCV MCH MCHC RDW Plt Count MPV Neut % (Auto) Lymph % (Auto) [place] % (Auto) Eos % (Auto) Baso % (Auto) Neut # (Auto) Lymph # (Auto) [place] # (Auto) Eos # (Auto) Baso # (Auto) Differential Comment PT INR APTT Fibrinogen 221 Puncture Site Rra pCO2 33 L pO2 294 H HCO3 22.2 ABG pH 7.40 ABG Total CO2 21.4 L ABG O2 Saturation 100.2 H ABG Base Excess -3.6 L ABG Hemoglobin ABG Carboxyhemoglobin POC ABG HHb (Measured) ABG Methemoglobin Leobardo Test Na ABG Potassium 2.4 L* A-a O2 Difference 378.0 Respiratory Index 1.3 Hgb O2 Saturation Glucose 141 H Lactate 1.6 Vent Mode Prvc Mechanical Rate 12 FiO2 100.0 Tidal Volume 600 PEEP 5 Crit Value Called To Funmilayo gray rn Crit Value Called By Cony Crit Value Read Back Y Blood Gas Notified Time 2148 Sodium 140.0 Potassium Chloride 112.0 H Carbon Dioxide Anion Gap BUN Creatinine Est GFR ( Amer) Est GFR (Non-Af Amer) POC Glucose (mg/dL) 139 H Random Glucose Lactic Acid Calcium Phosphorus Magnesium Total Bilirubin AST ALT Alkaline Phosphatase Ammonia Troponin I NT-Pro-B Natriuret Pep Total Protein Albumin Globulin Albumin/Globulin Ratio Arterial Blood Potassium 2.4 L* Salicylates Urine Opiates Screen Urine Methadone Screen Acetaminophen Ur Barbiturates Screen Ur Phencyclidine Scrn Ur Amphetamines Screen U Benzodiazepines Scrn U Oth Cocaine Metabols U Cannabinoids Screen Alcohol, Quantitative Blood Type Antibody Screen 07/17/18 07/17/18 05:14 06:03 WBC RBC Hgb Hct MCV MCH MCHC RDW Plt Count MPV Neut % (Auto) Lymph % (Auto) [place] % (Auto) Eos % (Auto) Baso % (Auto) Neut # (Auto) Lymph # (Auto) [place] # (Auto) Eos # (Auto) Baso # (Auto) Differential Comment PT INR APTT Fibrinogen Puncture Site Rr pCO2 35 pO2 221 H HCO3 20.6 L ABG pH 7.35 ABG Total CO2 20.4 L ABG O2 Saturation 100.2 H ABG Base Excess -5.6 L ABG Hemoglobin 13.6 ABG Carboxyhemoglobin 1.4 POC ABG HHb (Measured) -0.2 L ABG Methemoglobin 0.5 Leobardo Test Pos ABG Potassium A-a O2 Difference 92.0 Respiratory Index 0.4 Hgb O2 Saturation 98.2 H Glucose Lactate Vent Mode Prvc Mechanical Rate 12 FiO2 50.0 Tidal Volume 500 PEEP 5 Crit Value Called To Crit Value Called By Crit Value Read Back Blood Gas Notified Time Sodium Potassium Chloride Carbon Dioxide Anion Gap BUN Creatinine Est GFR ( Amer) Est GFR (Non-Af Amer) POC Glucose (mg/dL) 146 H Random Glucose Lactic Acid Calcium Phosphorus Magnesium Total Bilirubin AST ALT Alkaline Phosphatase Ammonia Troponin I NT-Pro-B Natriuret Pep Total Protein Albumin Globulin Albumin/Globulin Ratio Arterial Blood Potassium Salicylates Urine Opiates Screen Urine Methadone Screen Acetaminophen Ur Barbiturates Screen Ur Phencyclidine Scrn Ur Amphetamines Screen U Benzodiazepines Scrn U Oth Cocaine Metabols U Cannabinoids Screen Alcohol, Quantitative Blood Type Antibody Screen
[2018-07-17 07:20] LABS: BASO % 0.2 % (0.0-2.0); LYMPH # 1.2 K/uL (1.0-4.3); LYMPH % 6.3 % (20.0-40.0); MEAN CELL VOLUME 80.8 fL (81.0-99.0); MEAN CORPUSCULAR HEMOGLOBIN 26.4 pg (27.0-31.0); MEAN CORPUSCULAR HGB CONC 32.6 g/dL (33.0-37.0); MEAN PLATELET VOLUME 10.1 fL (7.2-11.7); MONO # 0.9 K/uL (0.0-0.8); MONO % 4.6 % (0.0-10.0); NEUT # 17.1 K/uL (1.8-7.0); NEUT % 88.9 % (50.0-75.0); RED CELL DISTRIBUTION WIDTH 15.4 % (11.5-14.5); WHITE BLOOD COUNT 19.2 K/uL (4.8-10.8)
[2018-07-17 07:28] LABS: HEMOGLOBIN 13.2 g/dL (11.0-16.0); PLATELET COUNT 291 K/uL (130-400)
[2018-07-17] MEDS ORDERED: Dexamethasone 4 mg/1 ml IV SCH ×2 (07:30→12:00)
[2018-07-17] MEDS ORDERED: Mannitol 12.5 gm/50 ml Inj IV ONE ×2 (07:30→08:30)
[2018-07-17] MEDS: Albuterol-Ipratrop 3 mg / 0.5 (3 ml) UD INH SCH ×3 (07:44→20:44)
[2018-07-17 07:50] LABS: INR 1.1
[2018-07-17 08:13] LABS: ALB/GLOB RATIO 1.2 (1.0-2.1); ALBUMIN 3.8 g/dL (3.5-5.0); CALCIUM 9.3 mg/dl (8.6-10.4)
--- NOTE | 2018-07-17 08:19 | CT ---
Date of service: 07/16/2018 PROCEDURE: CT HEAD WITHOUT CONTRAST. HISTORY: dizziness COMPARISON: TECHNIQUE: Axial computed tomography images were obtained through the head/brain without intravenous contrast. Radiation dose: Total exam DLP = 988.43 mGy-cm. This CT exam was performed using one or more of the following dose reduction techniques: Automated exposure control, adjustment of the mA and/or kV according to patient size, and/or use of iterative reconstruction technique. FINDINGS: HEMORRHAGE: There are foci of acute parenchymal hemorrhage in the right basal ganglia right coronal radiata centrum semiovale that also extending to the medial and midportion of the left temporal and frontal lobes. The largest focus of intraparenchymal hemorrhage measures approximately 4.6 x 3.1 centimeter. There are also foci of subarachnoid hemorrhage noted in both cerebral hemisphere. There is a focus of the hemorrhage also noted in the anterior superior aspect of posterior fossa likely anterior to 4th ventricle may involve the basilar cistern and prepontine cistern. There is linear high attenuation along the tentorial leaflets may represent small size subdural hematoma. BRAIN: There is diffuse effacement of the brain sulci noted. There is mass effect on the thecal and approximately 8 millimeter [id number] midline shift. There is a suspicious for transtentorial and uncal herniation. VENTRICLES: There is complete effacement of the 4th ventricle. The lateral ventricles are small in size. CALVARIUM: Unremarkable. PARANASAL SINUSES: Unremarkable as visualized. No significant inflammatory changes. MASTOID AIR CELLS: Unremarkable as visualized. No inflammatory changes. OTHER FINDINGS: None. IMPRESSION: Large intraparenchymal hemorrhage at the left cerebral hemisphere involving the left basal ganglia left centrum semiovale coronal radiata left temporal and frontal lobes. Large mass effect on the lateral ventricles and approximately 8 millimeter [id number] midline shift. Focal hemorrhage noted around the pontine and basilar cistern. Foci of subarachnoid hemorrhage and possible small amount of subdural hemorrhage along the tentorial leaflets. Diffuse effacement of the brain sulci suggestive of increased intracranial pressure . Suspicious for transtentorial and uncal brain herniation. Preliminary report was submitted by [facility] Radiology contains concordant findings.
--- NOTE | 2018-07-17 08:29 | CT ---
Date of service: 07/17/2018 PROCEDURE: CT HEAD WITHOUT CONTRAST. HISTORY: eval [facility] COMPARISON: Comparison is made to the previous study dated 07/16/2018 TECHNIQUE: Axial computed tomography images were obtained through the head/brain without intravenous contrast. Radiation dose: Total exam DLP = 1119.94 mGy-cm. This CT exam was performed using one or more of the following dose reduction techniques: Automated exposure control, adjustment of the mA and/or kV according to patient size, and/or use of iterative reconstruction technique. FINDINGS: HEMORRHAGE: Again noted are low large foci of parenchymal hemorrhage in the left cerebral hemisphere surrounding with edema and resulting in mass effect on the left lateral ventricle. Again noted are foci of subarachnoid hemorrhage. Again noted are foci of hemorrhage around the mountain and basilar cistern. There is high attenuation along the tentorial leaflets is again noted. BRAIN: There is diffuse effacement of the brain sulci. There is slight effacement of the suarez-white matter differentiation noted. Findings suggestive of increased intracranial pressure. Again noted is possible transtentorial and uncal brain herniation. There is diffuse effacement of the basilar and suprasellar cisterns. Again noted is approximately 8 millimeter [id number] midline shift. VENTRICLES: Colles are small in size. There is complete effacement of the 4th ventricle again noted. CALVARIUM: Unremarkable. PARANASAL SINUSES: Unremarkable as visualized. No significant inflammatory changes. MASTOID AIR CELLS: Unremarkable as visualized. No inflammatory changes. OTHER FINDINGS: The patient is status post intubation. IMPRESSION: Again noted is large intraparenchymal hemorrhage at the left cerebral hemisphere surrounding with edema and resulting in mass effect and approximately 8 millimeter [id number] midline shift. Subarachnoid hemorrhage and small subdural hemorrhage along tentorial leaflets. Diffuse effacement of the brain sulci suggestive of increased intracranial pressure. Findings are again suspicious for transtentorial and uncal brain herniation.
--- NOTE | 2018-07-17 08:34 | CP.CCUPN ---
<Ryan Flood - Last Filed: 07/17/18 18:51> CCU Subjective - Physician Review Subjective (Free Text): ICU Progress Note for Dr. Larson Pt seen and examined at bedside. Currently intubated and sedated. Unable to obtain ROS or further HPI due to pt's current clinical status. CCU Objective - Vital Signs / Intake & Output Vital Signs (Last 4 hours): Vital Signs Pulse Resp BP Pulse Ox 07/17/18 08:10 87 20 100 07/17/18 08:00 82 20 100 07/17/18 07:50 80 20 100 07/17/18 07:40 80 20 100 07/17/18 07:30 78 19 100 07/17/18 07:25 79 20 117/78 100 07/17/18 07:20 79 20 100 07/17/18 07:10 81 20 100 07/17/18 07:00 82 20 100 07/17/18 06:50 85 20 100 07/17/18 06:40 88 20 100 07/17/18 06:39 88 20 134/90 99 07/17/18 06:30 90 12 100 07/17/18 06:26 90 12 178/113 H 97 07/17/18 06:20 89 12 100 07/17/18 06:10 89 12 100 07/17/18 06:01 85 07/17/18 05:30 82 12 100 07/17/18 05:20 82 12 100 07/17/18 05:10 81 12 100 07/17/18 05:00 80 12 100 07/17/18 04:50 79 12 100 07/17/18 04:44 76 12 136/93 H 100 07/17/18 04:40 76 12 100 Intake and Output (Last 8hrs): Intake & Output 07/16/18 07/17/18 07/17/18 22:59 06:59 14:59 Intake Total 1450 125 Output Total 101 Balance 1349 125 Weight 210 lb 187 lb Intake: Intake, IV Amount 1450 125 Left Forearm 300 50 Right Antecubital 400 Right Hand 750 75 Output: Urine 100 Urine, Voided 100 Stool 1 Other: Voiding Method Incontinent # Bowel Movements 1 - Physical Exam Head: Positive for: Atraumatic, Normocephalic Pupils: Positive for: Non-Reactive Conjunctiva: Positive for: Normal Mouth: Positive for: Moist Mucous Membranes Neck: Positive for: Normal Range of Motion. Negative for: JVD Respiratory/Chest: Positive for: Clear to Auscultation. Negative for: Respiratory Distress, Wheezes, Rales, Rhonchi Cardiovascular: Positive for: Regular Rate and Rhythm, Normal S1, S2. Negative for: Murmurs, Rub, Gallop Abdomen: Positive for: Normal Bowel Sounds. Negative for: Tenderness, Disten tion, Mass/Organomegaly Upper Extremity: Positive for: Normal Inspection, Normal ROM, NORMAL PULSES, Neurovascularly Intact, Capillary Refill < 2s. Negative for: Cyanosis, Edema Lower Extremity: Positive for: Normal Inspection, NORMAL PULSES, Neurovascularly Intact, Capillary Refill < 2 s. Negative for: Edema Neurological: Positive for: Other (intubated and sedated) Skin: Positive for: Warm, Dry Psychiatric: Positive for: Other (intubated and sedated) - Medications Active Medications: Active Medications Generic Name Dose Route Start Last Admin Trade Name Freq PRN Reason Stop Dose Admin Albuterol/Ipratropium 3 ml 07/17/18 02:00 07/17/18 07:44 Duoneb 3 Mg/0.5 Mg (3 Ml) Ud INH 3 ml RQ6 DONALDO Administration Dexamethasone 4 mg 07/17/18 12:00 Decadron Inj IV Q6H DONALDO Sodium Chloride 1,000 mls @ 75 mls/hr 07/16/18 21:38 07/16/18 22:00 Sodium Chloride 0.9% IV 07/17/18 10:57 75 mls/hr .[id number] ONE Administration Levetiracetam 500 mg/ Dextrose 105 mls @ 420 mls/hr 07/16/18 21:45 07/16/18 22:00 IVPB 420 mls/hr Q12H DONALDO Administration Propofol 1,000 mg in 100 mls @ 2.858 mls/hr 07/16/18 21:40 Diprivan IV .Q24H PRN TITRATE PER MD ORDER Protocol 5 MCG/KG/MIN Vancomycin/Sodium Chloride 1 gm in 200 mls @ 133 mls/hr 07/17/18 00:00 07/17/18 01:39 Vancomycin 1 Gm/Ns 200 Ml IVPB 07/22/18 00:01 133 mls/hr Q12H DONALDO Administration Protocol Ceftriaxone Sodium 2 gm/ 100 mls @ 200 mls/hr 07/16/18 23:45 07/17/18 00:45 Sodium Chloride IVPB 200 mls/hr Q12H DONALDO Administration Protocol Nicardipine HCl 25 mg/ Sodium 250 mls @ 50 mls/hr 07/17/18 00:00 07/17/18 05:02 Chloride IV Not Given .Q5H DONALDO Protocol 5 MG/HR Pantoprazole Sodium 40 mg 07/17/18 02:30 07/17/18 03:30 Protonix Inj IVP 40 mg Q12H DONALDO Administration - Patient Studies Lab Studies: Lab Studies 07/17/18 07/17/18 07/17/18 Range/Units 07:15 07:11 07:11 WBC 19.2 H (4.8-10.8) K/uL RBC 5.00 (3.80-5.20) Mil/uL Hgb 13.2 D (11.0-16.0) g/dL Hct 40.4 (34.0-47.0) % MCV 80.8 L (81.0-99.0) fL MCH 26.4 L (27.0-31.0) pg MCHC 32.6 L (33.0-37.0) g/dL RDW 15.4 H (11.5-14.5) % Plt Count 291 D (130-400) K/uL MPV 10.1 (7.2-11.7) fL Neut % (Auto) 88.9 H (50.0-75.0) % Lymph % (Auto) 6.3 L (20.0-40.0) % [place] % (Auto) 4.6 (0.0-10.0) % Eos % (Auto) 0.0 (0.0-4.0) % Baso % (Auto) 0.2 (0.0-2.0) % Neut # (Auto) 17.1 H (1.8-7.0) K/uL Lymph # (Auto) 1.2 (1.0-4.3) K/uL [place] # (Auto) 0.9 H (0.0-0.8) K/uL Eos # (Auto) 0.0 (0.0-0.7) K/uL Baso # (Auto) 0.0 (0.0-0.2) K/uL Differential Comment PT (9.7-12.2) SECONDS INR APTT (21-34) SECONDS Fibrinogen (200-400) mg/dL Puncture Site pCO2 (35-45) mm/Hg pO2 (80-100) mm/Hg HCO3 (21-28) mmol/L ABG pH (7.35-7.45) ABG Total CO2 (22-28) mmol/L ABG O2 Saturation (95-98) % ABG Base Excess (-2.0-3.0) mmol/L ABG Hemoglobin (11.7-17.4) g/dL ABG Carboxyhemoglobin (0.5-1.5) % POC ABG HHb (Measured) (0.0-5.0) % ABG Methemoglobin (0.0-3.0) % Leobardo Test ABG Potassium (3.6-5.2) mmol/L A-a O2 Difference mm/Hg Respiratory Index Hgb O2 Saturation (95.0-98.0) % Glucose (65-105) mg/dl Lactate (0.7-2.1) mmol/L Vent Mode Mechanical Rate FiO2 % Tidal Volume PEEP Crit Value Called To Crit Value Called By Crit Value Read Back Blood Gas Notified Time Sodium 137 (132-148) mmol/L Potassium 6.5 H* D (3.6-5.2) mmol/L Chloride 111 H (98-107) mmol/L Carbon Dioxide 20 L (22-30) mmol/L Anion Gap 12 (10-20) BUN 24 H (7-17) mg/dL Creatinine 1.3 H (0.7-1.2) mg/dL Est GFR ( Amer) 52 Est GFR (Non-Af Amer) 43 POC Glucose (mg/dL) (65-110) mg/dL Random Glucose 152 H (65-105) mg/dL Lactic Acid 1.6 (0.7-2.1) mmol/L Calcium 9.3 (8.6-10.4) mg/dl Phosphorus 2.5 (2.5-4.5) mg/dL Magnesium 2.0 (1.6-2.3) mg/dL Total Bilirubin 0.5 (0.2-1.3) mg/dL AST 62 H D (14-36) U/L ALT 8 L D (9-52) U/L Alkaline Phosphatase 88 (38-126) U/L Ammonia (9-33) umol/L Troponin I (0.00-0.120) ng/mL NT-Pro-B Natriuret Pep (0-900) pg/mL Total Protein 6.9 (6.3-8.3) g/dL Albumin 3.8 (3.5-5.0) g/dL Globulin 3.1 (2.2-3.9) gm/dL Albumin/Globulin Ratio 1.2 (1.0-2.1) Arterial Blood Potassium (3.6-5.2) mmol/L Salicylates mg/dL 1 Urine Opiates Screen (NEGATIVE) Urine Methadone Screen (NEGATIVE) Acetaminophen (10.0-30.0) ug/mL Ur Barbiturates Screen (NEGATIVE) Ur Phencyclidine Scrn (NEGATIVE) Ur Amphetamines Screen (NEGATIVE) U Benzodiazepines Scrn (NEGATIVE) U Oth Cocaine Metabols (NEGATIVE) U Cannabinoids Screen (NEGATIVE) Alcohol, Quantitative (0-10) mg/dl Blood Type Antibody Screen 07/17/18 07/17/18 07/17/18 Range/Units 07:11 06:03 05:14 WBC (4.8-10.8) K/uL RBC (3.80-5.20) Mil/uL Hgb (11.0-16.0) g/dL Hct (34.0-47.0) % MCV (81.0-99.0) fL MCH (27.0-31.0) pg MCHC (33.0-37.0) g/dL RDW (11.5-14.5) % Plt Count (130-400) K/uL MPV (7.2-11.7) fL Neut % (Auto) (50.0-75.0) % Lymph % (Auto) (20.0-40.0) % [place] % (Auto) (0.0-10.0) % Eos % (Auto) (0.0-4.0) % Baso % (Auto) (0.0-2.0) % Neut # (Auto) (1.8-7.0) K/uL Lymph # (Auto) (1.0-4.3) K/uL [place] # (Auto) (0.0-0.8) K/uL Eos # (Auto) (0.0-0.7) K/uL Baso # (Auto) (0.0-0.2) K/uL Differential Comment PT 12.0 (9.7-12.2) SECONDS INR 1.1 APTT 34 (21-34) SECONDS Fibrinogen 318 (200-400) mg/dL Puncture Site Rr pCO2 35 (35-45) mm/Hg pO2 221 H (80-100) mm/Hg HCO3 20.6 L (21-28) mmol/L ABG pH 7.35 (7.35-7.45) ABG Total CO2 20.4 L (22-28) mmol/L ABG O2 Saturation 100.2 H (95-98) % ABG Base Excess -5.6 L (-2.0-3.0) mmol/L ABG Hemoglobin 13.6 (11.7-17.4) g/dL ABG Carboxyhemoglobin 1.4 (0.5-1.5) % POC ABG HHb (Measured) -0.2 L (0.0-5.0) % ABG Methemoglobin 0.5 (0.0-3.0) % Leobardo Test Pos ABG Potassium (3.6-5.2) mmol/L A-a O2 Difference 92.0 mm/Hg Respiratory Index 0.4 Hgb O2 Saturation 98.2 H (95.0-98.0) % Glucose (65-105) mg/dl Lactate (0.7-2.1) mmol/L Vent Mode Prvc Mechanical Rate 12 FiO2 50.0 % Tidal Volume 500 PEEP 5 Crit Value Called To Crit Value Called By Crit Value Read Back Blood Gas Notified Time Sodium (132-148) mmol/L Potassium (3.6-5.2) mmol/L Chloride (98-107) mmol/L Carbon Dioxide (22-30) mmol/L Anion Gap (10-20) BUN (7-17) mg/dL Creatinine (0.7-1.2) mg/dL Est GFR ( Amer) Est GFR (Non-Af Amer) POC Glucose (mg/dL) 146 H (65-110) mg/dL Random Glucose (65-105) mg/dL Lactic Acid (0.7-2.1) mmol/L Calcium (8.6-10.4) mg/dl Phosphorus (2.5-4.5) mg/dL Magnesium (1.6-2.3) mg/dL Total Bilirubin (0.2-1.3) mg/dL AST (14-36) U/L ALT (9-52) U/L Alkaline Phosphatase (38-126) U/L Ammonia (9-33) umol/L Troponin I (0.00-0.120) ng/mL NT-Pro-B Natriuret Pep (0-900) pg/mL Total Protein (6.3-8.3) g/dL Albumin (3.5-5.0) g/dL Globulin (2.2-3.9) gm/dL Albumin/Globulin Ratio (1.0-2.1) Arterial Blood Potassium (3.6-5.2) mmol/L Salicylates mg/dL 1 Urine Opiates Screen (NEGATIVE) Urine Methadone Screen (NEGATIVE) Acetaminophen (10.0-30.0) ug/mL Ur Barbiturates Screen (NEGATIVE) Ur Phencyclidine Scrn (NEGATIVE) Ur Amphetamines Screen (NEGATIVE) U Benzodiazepines Scrn (NEGATIVE) U Oth Cocaine Metabols (NEGATIVE) U Cannabinoids Screen (NEGATIVE) Alcohol, Quantitative (0-10) mg/dl Blood Type Antibody Screen 07/17/18 07/16/18 07/16/18 Range/Units 02:19 22:56 21:46 WBC (4.8-10.8) K/uL RBC (3.80-5.20) Mil/uL Hgb (11.0-16.0) g/dL Hct (34.0-47.0) % MCV (81.0-99.0) fL MCH (27.0-31.0) pg MCHC (33.0-37.0) g/dL RDW (11.5-14.5) % Plt Count (130-400) K/uL MPV (7.2-11.7) fL Neut % (Auto) (50.0-75.0) % Lymph % (Auto) (20.0-40.0) % [place] % (Auto) (0.0-10.0) % Eos % (Auto) (0.0-4.0) % Baso % (Auto) (0.0-2.0) % Neut # (Auto) (1.8-7.0) K/uL Lymph # (Auto) (1.0-4.3) K/uL [place] # (Auto) (0.0-0.8) K/uL Eos # (Auto) (0.0-0.7) K/uL Baso # (Auto) (0.0-0.2) K/uL Differential Comment PT (9.7-12.2) SECONDS INR APTT (21-34) SECONDS Fibrinogen 221 (200-400) mg/dL Puncture Site Rra pCO2 33 L (35-45) mm/Hg pO2 294 H (80-100) mm/Hg HCO3 22.2 (21-28) mmol/L ABG pH 7.40 (7.35-7.45) ABG Total CO2 21.4 L (22-28) mmol/L ABG O2 Saturation 100.2 H (95-98) % ABG Base Excess -3.6 L (-2.0-3.0) mmol/L ABG Hemoglobin (11.7-17.4) g/dL ABG Carboxyhemoglobin (0.5-1.5) % POC ABG HHb (Measured) (0.0-5.0) % ABG Methemoglobin (0.0-3.0) % Leobardo Test Na ABG Potassium 2.4 L* (3.6-5.2) mmol/L A-a O2 Difference 378.0 mm/Hg Respiratory Index 1.3 Hgb O2 Saturation (95.0-98.0) % Glucose 141 H (65-105) mg/dl Lactate 1.6 (0.7-2.1) mmol/L Vent Mode Prvc Mechanical Rate 12 FiO2 100.0 % Tidal Volume 600 PEEP 5 Crit Value Called To Funmilayo gray rn Crit Value Called By Cony Crit Value Read Back Y Blood Gas Notified Time 2148 Sodium 140.0 (132-148) mmol/L Potassium (3.6-5.2) mmol/L Chloride 112.0 H (98-107) mmol/L Carbon Dioxide (22-30) mmol/L Anion Gap (10-20) BUN (7-17) mg/dL Creatinine (0.7-1.2) mg/dL Est GFR ( Amer) Est GFR (Non-Af Amer) POC Glucose (mg/dL) 139 H (65-110) mg/dL Random Glucose (65-105) mg/dL Lactic Acid (0.7-2.1) mmol/L Calcium (8.6-10.4) mg/dl Phosphorus (2.5-4.5) mg/dL Magnesium (1.6-2.3) mg/dL Total Bilirubin (0.2-1.3) mg/dL AST (14-36) U/L ALT (9-52) U/L Alkaline Phosphatase (38-126) U/L Ammonia (9-33) umol/L Troponin I (0.00-0.120) ng/mL NT-Pro-B Natriuret Pep (0-900) pg/mL Total Protein (6.3-8.3) g/dL Albumin (3.5-5.0) g/dL Globulin (2.2-3.9) gm/dL Albumin/Globulin Ratio (1.0-2.1) Arterial Blood Potassium 2.4 L* (3.6-5.2) mmol/L Salicylates mg/dL 1 Urine Opiates Screen (NEGATIVE) Urine Methadone Screen (NEGATIVE) Acetaminophen (10.0-30.0) ug/mL Ur Barbiturates Screen (NEGATIVE) Ur Phencyclidine Scrn (NEGATIVE) Ur Amphetamines Screen (NEGATIVE) U Benzodiazepines Scrn (NEGATIVE) U Oth Cocaine Metabols (NEGATIVE) U Cannabinoids Screen (NEGATIVE) Alcohol, Quantitative (0-10) mg/dl Blood Type Antibody Screen 07/16/18 07/16/18 07/16/18 Range/Units 21:43 21:43 21:43 WBC (4.8-10.8) K/uL RBC (3.80-5.20) Mil/uL Hgb (11.0-16.0) g/dL Hct (34.0-47.0) % MCV (81.0-99.0) fL MCH (27.0-31.0) pg MCHC (33.0-37.0) g/dL RDW (11.5-14.5) % Plt Count (130-400) K/uL MPV (7.2-11.7) fL Neut % (Auto) (50.0-75.0) % Lymph % (Auto) (20.0-40.0) % [place] % (Auto) (0.0-10.0) % Eos % (Auto) (0.0-4.0) % Baso % (Auto) (0.0-2.0) % Neut # (Auto) (1.8-7.0) K/uL Lymph # (Auto) (1.0-4.3) K/uL [place] # (Auto) (0.0-0.8) K/uL Eos # (Auto) (0.0-0.7) K/uL Baso # (Auto) (0.0-0.2) K/uL Differential Comment PT (9.7-12.2) SECONDS INR APTT (21-34) SECONDS Fibrinogen (200-400) mg/dL Puncture Site pCO2 (35-45) mm/Hg pO2 (80-100) mm/Hg HCO3 (21-28) mmol/L ABG pH (7.35-7.45) ABG Total CO2 (22-28) mmol/L ABG O2 Saturation (95-98) % ABG Base Excess (-2.0-3.0) mmol/L ABG Hemoglobin (11.7-17.4) g/dL ABG Carboxyhemoglobin (0.5-1.5) % POC ABG HHb (Measured) (0.0-5.0) % ABG Methemoglobin (0.0-3.0) % Leobardo Test ABG Potassium (3.6-5.2) mmol/L A-a O2 Difference mm/Hg Respiratory Index Hgb O2 Saturation (95.0-98.0) % Glucose (65-105) mg/dl Lactate (0.7-2.1) mmol/L Vent Mode Mechanical Rate FiO2 % Tidal Volume PEEP Crit Value Called To Crit Value Called By Crit Value Read Back Blood Gas Notified Time Sodium 138 (132-148) mmol/L Potassium 2.9 L (3.6-5.2) mmol/L Chloride 108 H (98-107) mmol/L Carbon Dioxide 21 L (22-30) mmol/L Anion Gap 12 (10-20) BUN 20 H (7-17) mg/dL Creatinine 0.8 (0.7-1.2) mg/dL Est GFR ( Amer) > 60 Est GFR (Non-Af Amer) > 60 POC Glucose (mg/dL) (65-110) mg/dL Random Glucose 147 H D (65-105) mg/dL Lactic Acid 1.8 (0.7-2.1) mmol/L Calcium 8.6 (8.6-10.4) mg/dl Phosphorus 4.2 (2.5-4.5) mg/dL Magnesium 1.8 (1.6-2.3) mg/dL Total Bilirubin 0.3 (0.2-1.3) mg/dL AST 21 (14-36) U/L ALT 13 (9-52) U/L Alkaline Phosphatase 72 (38-126) U/L Ammonia < 9 L (9-33) umol/L Troponin I 0.0400 (0.00-0.120) ng/mL NT-Pro-B Natriuret Pep 296 (0-900) pg/mL Total Protein 5.9 L (6.3-8.3) g/dL Albumin 3.3 L (3.5-5.0) g/dL Globulin 2.6 (2.2-3.9) gm/dL Albumin/Globulin Ratio 1.2 (1.0-2.1) Arterial Blood Potassium (3.6-5.2) mmol/L Salicylates mg/dL 1 Urine Opiates Screen (NEGATIVE) Urine Methadone Screen (NEGATIVE) Acetaminophen (10.0-30.0) ug/mL Ur Barbiturates Screen (NEGATIVE) Ur Phencyclidine Scrn (NEGATIVE) Ur Amphetamines Screen (NEGATIVE) U Benzodiazepines Scrn (NEGATIVE) U Oth Cocaine Metabols (NEGATIVE) U Cannabinoids Screen (NEGATIVE) Alcohol, Quantitative < 10 (0-10) mg/dl Blood Type Antibody Screen 07/16/18 07/16/18 07/16/18 Range/Units 21:21 20:57 20:57 WBC (4.8-10.8) K/uL RBC (3.80-5.20) Mil/uL Hgb (11.0-16.0) g/dL Hct (34.0-47.0) % MCV (81.0-99.0) fL MCH (27.0-31.0) pg MCHC (33.0-37.0) g/dL RDW (11.5-14.5) % Plt Count (130-400) K/uL MPV (7.2-11.7) fL Neut % (Auto) (50.0-75.0) % Lymph % (Auto) (20.0-40.0) % [place] % (Auto) (0.0-10.0) % Eos % (Auto) (0.0-4.0) % Baso % (Auto) (0.0-2.0) % Neut # (Auto) (1.8-7.0) K/uL Lymph # (Auto) (1.0-4.3) K/uL [place] # (Auto) (0.0-0.8) K/uL Eos # (Auto) (0.0-0.7) K/uL Baso # (Auto) (0.0-0.2) K/uL Differential Comment PT (9.7-12.2) SECONDS INR APTT (21-34) SECONDS Fibrinogen (200-400) mg/dL Puncture Site pCO2 (35-45) mm/Hg pO2 (80-100) mm/Hg HCO3 (21-28) mmol/L ABG pH (7.35-7.45) ABG Total CO2 (22-28) mmol/L ABG O2 Saturation (95-98) % ABG Base Excess (-2.0-3.0) mmol/L ABG Hemoglobin (11.7-17.4) g/dL ABG Carboxyhemoglobin (0.5-1.5) % POC ABG HHb (Measured) (0.0-5.0) % ABG Methemoglobin (0.0-3.0) % Leobardo Test ABG Potassium (3.6-5.2) mmol/L A-a O2 Difference mm/Hg Respiratory Index Hgb O2 Saturation (95.0-98.0) % Glucose (65-105) mg/dl Lactate (0.7-2.1) mmol/L Vent Mode Mechanical Rate FiO2 % Tidal Volume PEEP Crit Value Called To Crit Value Called By Crit Value Read Back Blood Gas Notified Time Sodium (132-148) mmol/L Potassium (3.6-5.2) mmol/L Chloride (98-107) mmol/L Carbon Dioxide (22-30) mmol/L Anion Gap (10-20) BUN (7-17) mg/dL Creatinine (0.7-1.2) mg/dL Est GFR ( Amer) Est GFR (Non-Af Amer) POC Glucose (mg/dL) (65-110) mg/dL Random Glucose (65-105) mg/dL Lactic Acid (0.7-2.1) mmol/L Calcium (8.6-10.4) mg/dl Phosphorus (2.5-4.5) mg/dL Magnesium (1.6-2.3) mg/dL Total Bilirubin (0.2-1.3) mg/dL AST (14-36) U/L ALT (9-52) U/L Alkaline Phosphatase (38-126) U/L Ammonia (9-33) umol/L Troponin I (0.00-0.120) ng/mL NT-Pro-B Natriuret Pep (0-900) pg/mL Total Protein (6.3-8.3) g/dL Albumin (3.5-5.0) g/dL Globulin (2.2-3.9) gm/dL Albumin/Globulin Ratio (1.0-2.1) Arterial Blood Potassium (3.6-5.2) mmol/L Salicylates < 1.0 mg/dL 1 Urine Opiates Screen Negative (NEGATIVE) Urine Methadone Screen Negative (NEGATIVE) Acetaminophen < 10.0 L (10.0-30.0) ug/mL Ur Barbiturates Screen Negative (NEGATIVE) Ur Phencyclidine Scrn Negative (NEGATIVE) Ur Amphetamines Screen Negative (NEGATIVE) U Benzodiazepines Scrn Negative (NEGATIVE) U Oth Cocaine Metabols Negative (NEGATIVE) U Cannabinoids Screen Negative (NEGATIVE) Alcohol, Quantitative (0-10) mg/dl Blood Type A POSITIVE Antibody Screen Negative 07/16/18 07/16/18 07/16/18 Range/Units 20:57 20:57 20:33 WBC 22.4 H D (4.8-10.8) K/uL RBC 5.95 H (3.80-5.20) Mil/uL Hgb 15.5 D (11.0-16.0) g/dL Hct 48.2 H (34.0-47.0) % MCV 81.1 D (81.0-99.0) fL MCH 26.0 L (27.0-31.0) pg MCHC 32.1 L (33.0-37.0) g/dL RDW 15.5 H (11.5-14.5) % Plt Count 428 H D (130-400) K/uL MPV 10.0 (7.2-11.7) fL Neut % (Auto) 46.2 L (50.0-75.0) % Lymph % (Auto) 46.8 H (20.0-40.0) % [place] % (Auto) 4.9 (0.0-10.0) % Eos % (Auto) 1.3 (0.0-4.0) % Baso % (Auto) 0.8 (0.0-2.0) % Neut # (Auto) 10.3 H (1.8-7.0) K/uL Lymph # (Auto) 10.5 H (1.0-4.3) K/uL [place] # (Auto) 1.1 H (0.0-0.8) K/uL Eos # (Auto) 0.3 (0.0-0.7) K/uL Baso # (Auto) 0.2 (0.0-0.2) K/uL Differential Comment PT 12.3 H (9.7-12.2) SECONDS INR 1.1 APTT 34 (21-34) SECONDS Fibrinogen (200-400) mg/dL Puncture Site pCO2 (35-45) mm/Hg pO2 (80-100) mm/Hg HCO3 (21-28) mmol/L ABG pH (7.35-7.45) ABG Total CO2 (22-28) mmol/L ABG O2 Saturation (95-98) % ABG Base Excess (-2.0-3.0) mmol/L ABG Hemoglobin (11.7-17.4) g/dL ABG Carboxyhemoglobin (0.5-1.5) % POC ABG HHb (Measured) (0.0-5.0) % ABG Methemoglobin (0.0-3.0) % Leobardo Test ABG Potassium (3.6-5.2) mmol/L A-a O2 Difference mm/Hg Respiratory Index Hgb O2 Saturation (95.0-98.0) % Glucose (65-105) mg/dl Lactate (0.7-2.1) mmol/L Vent Mode Mechanical Rate FiO2 % Tidal Volume PEEP Crit Value Called To Crit Value Called By Crit Value Read Back Blood Gas Notified Time Sodium (132-148) mmol/L Potassium (3.6-5.2) mmol/L Chloride (98-107) mmol/L Carbon Dioxide (22-30) mmol/L Anion Gap (10-20) BUN (7-17) mg/dL Creatinine (0.7-1.2) mg/dL Est GFR ( Amer) Est GFR (Non-Af Amer) POC Glucose (mg/dL) 155 H (65-110) mg/dL Random Glucose (65-105) mg/dL Lactic Acid (0.7-2.1) mmol/L Calcium (8.6-10.4) mg/dl Phosphorus (2.5-4.5) mg/dL Magnesium (1.6-2.3) mg/dL Total Bilirubin (0.2-1.3) mg/dL AST (14-36) U/L ALT (9-52) U/L Alkaline Phosphatase (38-126) U/L Ammonia (9-33) umol/L Troponin I (0.00-0.120) ng/mL NT-Pro-B Natriuret Pep (0-900) pg/mL Total Protein (6.3-8.3) g/dL Albumin (3.5-5.0) g/dL Globulin (2.2-3.9) gm/dL Albumin/Globulin Ratio (1.0-2.1) Arterial Blood Potassium (3.6-5.2) mmol/L Salicylates mg/dL 1 Urine Opiates Screen (NEGATIVE) Urine Methadone Screen (NEGATIVE) Acetaminophen (10.0-30.0) ug/mL Ur Barbiturates Screen (NEGATIVE) Ur Phencyclidine Scrn (NEGATIVE) Ur Amphetamines Screen (NEGATIVE) U Benzodiazepines Scrn (NEGATIVE) U Oth Cocaine Metabols (NEGATIVE) U Cannabinoids Screen (NEGATIVE) Alcohol, Quantitative (0-10) mg/dl Blood Type Antibody Screen Laboratory Results - last 24 hr 07/16/18 07/16/18 07/16/18 20:33 20:57 20:57 WBC 22.4 H D RBC 5.95 H Hgb 15.5 D Hct 48.2 H MCV 81.1 D MCH 26.0 L MCHC 32.1 L RDW 15.5 H Plt Count 428 H D MPV 10.0 Neut % (Auto) 46.2 L Lymph % (Auto) 46.8 H [place] % (Auto) 4.9 Eos % (Auto) 1.3 Baso % (Auto) 0.8 Neut # (Auto) 10.3 H Lymph # (Auto) 10.5 H [place] # (Auto) 1.1 H Eos # (Auto) 0.3 Baso # (Auto) 0.2 Differential Comment PT 12.3 H INR 1.1 APTT 34 Fibrinogen Puncture Site pCO2 pO2 HCO3 ABG pH ABG Total CO2 ABG O2 Saturation ABG Base Excess ABG Hemoglobin ABG Carboxyhemoglobin POC ABG HHb (Measured) ABG Methemoglobin Leobardo Test ABG Potassium A-a O2 Difference Respiratory Index Hgb O2 Saturation Glucose Lactate Vent Mode Mechanical Rate FiO2 Tidal Volume PEEP Crit Value Called To Crit Value Called By Crit Value Read Back Blood Gas Notified Time Sodium Potassium Chloride Carbon Dioxide Anion Gap BUN Creatinine Est GFR ( Amer) Est GFR (Non-Af Amer) POC Glucose (mg/dL) 155 H Random Glucose Lactic Acid Calcium Phosphorus Magnesium Total Bilirubin AST ALT Alkaline Phosphatase Ammonia Troponin I NT-Pro-B Natriuret Pep Total Protein Albumin Globulin Albumin/Globulin Ratio Arterial Blood Potassium Salicylates Urine Opiates Screen Urine Methadone Screen Acetaminophen Ur Barbiturates Screen Ur Phencyclidine Scrn Ur Amphetamines Screen U Benzodiazepines Scrn U Oth Cocaine Metabols U Cannabinoids Screen Alcohol, Quantitative Blood Type Antibody Screen 07/16/18 07/16/18 07/16/18 20:57 20:57 21:21 WBC RBC Hgb Hct MCV MCH MCHC RDW Plt Count MPV Neut % (Auto) Lymph % (Auto) [place] % (Auto) Eos % (Auto) Baso % (Auto) Neut # (Auto) Lymph # (Auto) [place] # (Auto) Eos # (Auto) Baso # (Auto) Differential Comment PT INR APTT Fibrinogen Puncture Site pCO2 pO2 HCO3 ABG pH ABG Total CO2 ABG O2 Saturation ABG Base Excess ABG Hemoglobin ABG Carboxyhemoglobin POC ABG HHb (Measured) ABG Methemoglobin Leobardo Test ABG Potassium A-a O2 Difference Respiratory Index Hgb O2 Saturation Glucose Lactate Vent Mode Mechanical Rate FiO2 Tidal Volume PEEP Crit Value Called To Crit Value Called By Crit Value Read Back Blood Gas Notified Time Sodium Potassium Chloride Carbon Dioxide Anion Gap BUN Creatinine Est GFR ( Amer) Est GFR (Non-Af Amer) POC Glucose (mg/dL) Random Glucose Lactic Acid Calcium Phosphorus Magnesium Total Bilirubin AST ALT Alkaline Phosphatase Ammonia Troponin I NT-Pro-B Natriuret Pep Total Protein Albumin Globulin Albumin/Globulin Ratio Arterial Blood Potassium Salicylates < 1.0 Urine Opiates Screen Negative Urine Methadone Screen Negative Acetaminophen < 10.0 L Ur Barbiturates Screen Negative Ur Phencyclidine Scrn Negative Ur Amphetamines Screen Negative U Benzodiazepines Scrn Negative U Oth Cocaine Metabols Negative U Cannabinoids Screen Negative Alcohol, Quantitative Blood Type A POSITIVE Antibody Screen Negative 07/16/18 07/16/18 07/16/18 21:43 21:43 21:43 WBC RBC Hgb Hct MCV MCH MCHC RDW Plt Count MPV Neut % (Auto) Lymph % (Auto) [place] % (Auto) Eos % (Auto) Baso % (Auto) Neut # (Auto) Lymph # (Auto) [place] # (Auto) Eos # (Auto) Baso # (Auto) Differential Comment PT INR APTT Fibrinogen Puncture Site pCO2 pO2 HCO3 ABG pH ABG Total CO2 ABG O2 Saturation ABG Base Excess ABG Hemoglobin ABG Carboxyhemoglobin POC ABG HHb (Measured) ABG Methemoglobin Leobardo Test ABG Potassium A-a O2 Difference Respiratory Index Hgb O2 Saturation Glucose Lactate Vent Mode Mechanical Rate FiO2 Tidal Volume PEEP Crit Value Called To Crit Value Called By Crit Value Read Back Blood Gas Notified Time Sodium 138 Potassium 2.9 L Chloride 108 H Carbon Dioxide 21 L Anion Gap 12 BUN 20 H Creatinine 0.8 Est GFR ( Amer) > 60 Est GFR (Non-Af Amer) > 60 POC Glucose (mg/dL) Random Glucose 147 H D Lactic Acid 1.8 Calcium 8.6 Phosphorus 4.2 Magnesium 1.8 Total Bilirubin 0.3 AST 21 ALT 13 Alkaline Phosphatase 72 Ammonia < 9 L Troponin I 0.0400 NT-Pro-B Natriuret Pep 296 Total Protein 5.9 L Albumin 3.3 L Globulin 2.6 Albumin/Globulin Ratio 1.2 Arterial Blood Potassium Salicylates Urine Opiates Screen Urine Methadone Screen Acetaminophen Ur Barbiturates Screen Ur Phencyclidine Scrn Ur Amphetamines Screen U Benzodiazepines Scrn U Oth Cocaine Metabols U Cannabinoids Screen Alcohol, Quantitative < 10 Blood Type Antibody Screen 07/16/18 07/16/18 07/17/18 21:46 22:56 02:19 WBC RBC Hgb Hct MCV MCH MCHC RDW Plt Count MPV Neut % (Auto) Lymph % (Auto) [place] % (Auto) Eos % (Auto) Baso % (Auto) Neut # (Auto) Lymph # (Auto) [place] # (Auto) Eos # (Auto) Baso # (Auto) Differential Comment PT INR APTT Fibrinogen 221 Puncture Site Rra pCO2 33 L pO2 294 H HCO3 22.2 ABG pH 7.40 ABG Total CO2 21.4 L ABG O2 Saturation 100.2 H ABG Base Excess -3.6 L ABG Hemoglobin ABG Carboxyhemoglobin POC ABG HHb (Measured) ABG Methemoglobin Leobardo Test Na ABG Potassium 2.4 L* A-a O2 Difference 378.0 Respiratory Index 1.3 Hgb O2 Saturation Glucose 141 H Lactate 1.6 Vent Mode Prvc Mechanical Rate 12 FiO2 100.0 Tidal Volume 600 PEEP 5 Crit Value Called To Funmilayo gray rn Crit Value Called By Cony Crit Value Read Back Y Blood Gas Notified Time 2148 Sodium 140.0 Potassium Chloride 112.0 H Carbon Dioxide Anion Gap BUN Creatinine Est GFR ( Amer) Est GFR (Non-Af Amer) POC Glucose (mg/dL) 139 H Random Glucose Lactic Acid Calcium Phosphorus Magnesium Total Bilirubin AST ALT Alkaline Phosphatase Ammonia Troponin I NT-Pro-B Natriuret Pep Total Protein Albumin Globulin Albumin/Globulin Ratio Arterial Blood Potassium 2.4 L* Salicylates Urine Opiates Screen Urine Methadone Screen Acetaminophen Ur Barbiturates Screen Ur Phencyclidine Scrn Ur Amphetamines Screen U Benzodiazepines Scrn U Oth Cocaine Metabols U Cannabinoids Screen Alcohol, Quantitative Blood Type Antibody Screen 07/17/18 07/17/18 07/17/18 05:14 06:03 07:11 WBC RBC Hgb Hct MCV MCH MCHC RDW Plt Count MPV Neut % (Auto) Lymph % (Auto) [place] % (Auto) Eos % (Auto) Baso % (Auto) Neut # (Auto) Lymph # (Auto) [place] # (Auto) Eos # (Auto) Baso # (Auto) Differential Comment PT 12.0 INR 1.1 APTT 34 Fibrinogen 318 Puncture Site Rr pCO2 35 pO2 221 H HCO3 20.6 L ABG pH 7.35 ABG Total CO2 20.4 L ABG O2 Saturation 100.2 H ABG Base Excess -5.6 L ABG Hemoglobin 13.6 ABG Carboxyhemoglobin 1.4 POC ABG HHb (Measured) -0.2 L ABG Methemoglobin 0.5 Leobardo Test Pos ABG Potassium A-a O2 Difference 92.0 Respiratory Index 0.4 Hgb O2 Saturation 98.2 H Glucose Lactate Vent Mode Prvc Mechanical Rate 12 FiO2 50.0 Tidal Volume 500 PEEP 5 Crit Value Called To Crit Value Called By Crit Value Read Back Blood Gas Notified Time Sodium Potassium Chloride Carbon Dioxide Anion Gap BUN Creatinine Est GFR ( Amer) Est GFR (Non-Af Amer) POC Glucose (mg/dL) 146 H Random Glucose Lactic Acid Calcium Phosphorus Magnesium Total Bilirubin AST ALT Alkaline Phosphatase Ammonia Troponin I NT-Pro-B Natriuret Pep Total Protein Albumin Globulin Albumin/Globulin Ratio Arterial Blood Potassium Salicylates Urine Opiates Screen Urine Methadone Screen Acetaminophen Ur Barbiturates Screen Ur Phencyclidine Scrn Ur Amphetamines Screen U Benzodiazepines Scrn U Oth Cocaine Metabols U Cannabinoids Screen Alcohol, Quantitative Blood Type Antibody Screen 07/17/18 07/17/18 07/17/18 07:11 07:11 07:15 WBC 19.2 H RBC 5.00 Hgb 13.2 D Hct 40.4 MCV 80.8 L MCH 26.4 L MCHC 32.6 L RDW 15.4 H Plt Count 291 D MPV 10.1 Neut % (Auto) 88.9 H Lymph % (Auto) 6.3 L [place] % (Auto) 4.6 Eos % (Auto) 0.0 Baso % (Auto) 0.2 Neut # (Auto) 17.1 H Lymph # (Auto) 1.2 [place] # (Auto) 0.9 H Eos # (Auto) 0.0 Baso # (Auto) 0.0 Differential Comment PT INR APTT Fibrinogen Puncture Site pCO2 pO2 HCO3 ABG pH ABG Total CO2 ABG O2 Saturation ABG Base Excess ABG Hemoglobin ABG Carboxyhemoglobin POC ABG HHb (Measured) ABG Methemoglobin Leobardo Test ABG Potassium A-a O2 Difference Respiratory Index Hgb O2 Saturation Glucose Lactate Vent Mode Mechanical Rate FiO2 Tidal Volume PEEP Crit Value Called To Crit Value Called By Crit Value Read Back Blood Gas Notified Time Sodium 137 Potassium 6.5 H* D Chloride 111 H Carbon Dioxide 20 L Anion Gap 12 BUN 24 H Creatinine 1.3 H Est GFR ( Amer) 52 Est GFR (Non-Af Amer) 43 POC Glucose (mg/dL) Random Glucose 152 H Lactic Acid 1.6 Calcium 9.3 Phosphorus 2.5 Magnesium 2.0 Total Bilirubin 0.5 AST 62 H D ALT 8 L D Alkaline Phosphatase 88 Ammonia Troponin I NT-Pro-B Natriuret Pep Total Protein 6.9 Albumin 3.8 Globulin 3.1 Albumin/Globulin Ratio 1.2 Arterial Blood Potassium Salicylates Urine Opiates Screen Urine Methadone Screen Acetaminophen Ur Barbiturates Screen Ur Phencyclidine Scrn Ur Amphetamines Screen U Benzodiazepines Scrn U Oth Cocaine Metabols U Cannabinoids Screen Alcohol, Quantitative Blood Type Antibody Screen Radiology Impressions: Radiology Impressions Head CT 07/16/18 20:51 IMPRESSION: Large intraparenchymal hemorrhage at the left cerebral hemisphere involving the left basal ganglia left centrum semiovale coronal radiata left temporal and frontal lobes. Large mass effect on the lateral ventricles and approximately 8 millimeter [id number] midline shift. Focal hemorrhage noted around the pontine and basilar cistern. Foci of subarachnoid hemorrhage and possible small amount of subdural hemorrhage along the tentorial leaflets. Diffuse effacement of the brain sulci suggestive of increased intracranial pressure . Suspicious for transtentorial and uncal brain herniation. Preliminary report was submitted by [facility] Radiology contains concordant findings. Head CT 07/17/18 05:00 IMPRESSION: Again noted is large intraparenchymal hemorrhage at the left cerebral hemisphere surrounding with edema and resulting in mass effect and approximately 8 millimeter [id number] midline shift. Subarachnoid hemorrhage and small subdural hemorrhage along tentorial leaflets. Diffuse effacement of the brain sulci suggestive of increased intracranial pressure. Findings are again suspicious for transtentorial and uncal brain herniation. EKG/Cardiology Studies: Cardiology / EKG Studies 07/16/18 21:12 EKG [ELECTROCARDIOGRAM] Stat Comment: Mode Of Transportation: Reason For Exam: AMS Fingerstick Blood Sugar Results: 139 Review of Systems - Review of Systems Systems not reviewed;Unavailable: Intubated Assessment/Plan - Assessment and Plan (Free Text) Assessment: 52 y o female PMhx HTN, s/p gastric sleeve, who presented to the ED s/p unresponsiveness. Per family member of pt, pt was at a meeting with a friend when she suddenly became unresponsive. EMS was called at that time and pt was brought into the ED by BLS, pt was intubated in the ED. CT head demonstrated intraparenchymal hemorrhage. Neurosurgery (Dr. Flores) was consulted, who stated that pt did not qualify as a surgical candidate with her clinical presentation. Admitted to ICU for further monitoring. Plan: Neuro: -Unresponsiveness on ED presentation, intracranial hemorrhage on CT scan -Intubated and sedated -Pupils non-reactive, unresponsive to commands -Neurosurgery (Dr. Flores) consulted, stated that pt does not qualify as a surgical candidate, poor prognosis, and will not benefit from intra-ventricular drain -Neurology consulted (Dr. Spicer) consulted, recs appreciated -CT head: Large intraparenchymal hemorrhage at the L cerebral hemisphere surrounding with edema and resulting in mass effect and approximately 8 mm L-to-R midline shift. Subarachnoid hemorrhage and small subdural hemorrhage along tentorial leaflets. Diffuse effacement of brain sulci suggestive of increased intracranial pressure. Findings suspicious for transtentorial and uncal brain herniation. -CTA head/neck: Complete absence of intracranial blood flow related to complete occlusion of b/l internal carotid and vertebral arteries. Complete occlusion of R ICA at base of skull and L ICA approx. 3 cm distal to its origin. Complete occlusion of right V3 and V4 segments and left V2, V3, and V4 segments. -Decadron 4 mg IVP q6h -Keppra q12h -Nicardipine gtt to keep SBP < 120 -Neuro checks -EEG ordered -Will initiate brain protocol Cardio: -HR and BP stable, cont to monitor -Maintain SBP < 120 on Nicardipine drip for ICH -Hx HTN Pulm: -Currently intubated and sedated -Ventilator settings as ordered -Recent ABG 7.35/35/221/20.6 -Duonebs q6h -Maintain O2 sat > 92% -CXR on admission: no active disease -Cont to monitor GI: -NPO -Protonix -No acute issues at this time, cont to monitor ID: -Vanco/Ceftriaxone -Blood and urine cxs pending -Leukocytosis trending down this am -Afebrile currently, cont to monitor Heme: -H/H 13.2/40.4 -ICH on CT scan -Cont to trend -Coags wnl Renal: -Bun/Cr 24/1.3, cont to trend -Trend I's/O's -Urine cx pending PPX: -Protonix -SCD -Pharmacologic DVT ppx CI'd 2/ active bleed -Full Code status -Prognosis poor Pt seen, examined with, and plan discussed with Dr. Larson, attending physician. Ryan Flood DO PGY-1, Plumbing Inspector Pager #[phone] <Lukas Larson - Last Filed: 07/17/18 19:21> CCU Objective - Vital Signs / Intake & Output Vital Signs (Last 4 hours): Vital Signs Pulse Resp BP Pulse Ox 07/17/18 18:10 82 13 100 07/17/18 18:00 79 10 L 100 07/17/18 17:50 77 10 L 100 07/17/18 17:40 76 10 L 100 07/17/18 17:30 75 12 100 07/17/18 17:25 75 13 113/76 100 07/17/18 17:20 81 11 L 100 07/17/18 17:10 76 16 100 07/17/18 17:00 73 10 L 100 07/17/18 16:50 73 10 L 100 07/17/18 16:40 73 10 L 100 07/17/18 16:30 73 10 L 100 07/17/18 16:25 73 10 L 113/74 100 07/17/18 16:20 72 10 L 100 07/17/18 16:10 72 10 L 100 07/17/18 16:00 73 10 L 113/74 100 07/17/18 15:50 72 10 L 100 07/17/18 15:40 72 10 L 100 07/17/18 15:30 72 10 L 100 07/17/18 15:25 72 10 L 111/73 100 07/17/18 15:20 72 10 L 100 Intake and Output (Last 8hrs): Intake & Output 07/17/18 07/17/18 07/17/18 06:59 14:59 22:59 Intake Total 1450 750 Output Total 101 Balance 1349 750 Weight 187 lb Intake: IV 500 Intake, IV Amount 1450 250 Left Forearm 300 100 Right Antecubital 400 Right Hand 750 150 Output: Urine 100 Urine, Voided 100 Stool 1 Other: Voiding Method Incontinent # Bowel Movements 1 - Medications Active Medications: Active Medications Generic Name Dose Route Start Last Admin Trade Name Freq PRN Reason Stop Dose Admin Albuterol/Ipratropium 3 ml 07/17/18 02:00 07/17/18 14:19 Duoneb 3 Mg/0.5 Mg (3 Ml) Ud INH Not Given RQ6 DONALDO Dexamethasone 4 mg 07/17/18 18:00 07/17/18 17:57 Decadron Inj IVP 4 mg Q6H DONALDO Administration Levetiracetam 500 mg/ Dextrose 105 mls @ 420 mls/hr 07/16/18 21:45 07/17/18 10:40 IVPB 420 mls/hr Q12H DONALDO Administration Propofol 1,000 mg in 100 mls @ 2.858 mls/hr 07/16/18 21:40 Diprivan IV .Q24H PRN TITRATE PER MD ORDER Protocol 5 MCG/KG/MIN Vancomycin/Sodium Chloride 1 gm in 200 mls @ 133 mls/hr 07/17/18 00:00 07/17/18 11:31 Vancomycin 1 Gm/Ns 200 Ml IVPB 07/22/18 00:01 133 mls/hr Q12H DONALDO Administration Protocol Ceftriaxone Sodium 2 gm/ 100 mls @ 200 mls/hr 07/16/18 23:45 07/17/18 11:03 Sodium Chloride IVPB 200 mls/hr Q12H DONALDO Administration Protocol Nicardipine HCl 25 mg/ Sodium 250 mls @ 50 mls/hr 07/17/18 00:00 07/17/18 14:41 Chloride IV 5 mg/hr .Q5H DONALDO 50 mls/hr Administration Protocol 5 MG/HR Sodium Bicarbonate 75 meq/ 1,075 mls @ 75 mls/hr 07/17/18 14:00 07/17/18 14:07 Sodium Chloride IV 75 mls/hr .[id number] DONALDO Administration - Patient Studies Lab Studies: Lab Studies 07/17/18 07/17/18 07/17/18 Range/Units 13:53 11:49 11:48 WBC (4.8-10.8) K/uL RBC (3.80-5.20) Mil/uL Hgb (11.0-16.0) g/dL Hct (34.0-47.0) % MCV (81.0-99.0) fL MCH (27.0-31.0) pg MCHC (33.0-37.0) g/dL RDW (11.5-14.5) % Plt Count (130-400) K/uL MPV (7.2-11.7) fL Neut % (Auto) (50.0-75.0) % Lymph % (Auto) (20.0-40.0) % [place] % (Auto) (0.0-10.0) % Eos % (Auto) (0.0-4.0) % Baso % (Auto) (0.0-2.0) % Neut # (Auto) (1.8-7.0) K/uL Lymph # (Auto) (1.0-4.3) K/uL [place] # (Auto) (0.0-0.8) K/uL Eos # (Auto) (0.0-0.7) K/uL Baso # (Auto) (0.0-0.2) K/uL Neutrophils % (Manual) (50-75) % Band Neutrophils % (0-2) % Lymphocytes % (Manual) (20-40) % Reactive Lymphs % (0-0) % Monocytes % (Manual) (0-10) % Differential Comment Platelet Estimate (NORMAL) Large Platelets Anisocytosis (manual) Ovalocytes PT (9.7-12.2) SECONDS INR APTT (21-34) SECONDS Fibrinogen (200-400) mg/dL Puncture Site Rra,apnea test Ra Rra pCO2 65 H 39 33 L (35-45) mm/Hg pO2 250 H 381 H 462 H (80-100) mm/Hg HCO3 21.4 21.6 16.3 L (21-28) mmol/L ABG pH 7.19 L* 7.34 L 7.26 L (7.35-7.45) ABG Total CO2 26.8 22.2 15.8 L (22-28) mmol/L ABG O2 Saturation 99.9 H 100.3 H 100.3 H (95-98) % ABG Base Excess -4.6 L -4.4 L -11.2 L (-2.0-3.0) mmol/L ABG Hemoglobin (11.7-17.4) g/dL ABG Carboxyhemoglobin (0.5-1.5) % POC ABG HHb (Measured) (0.0-5.0) % ABG Methemoglobin (0.0-3.0) % Leobardo Test Po Po Po ABG Potassium 4.5 4.4 4.4 (3.6-5.2) mmol/L A-a O2 Difference 382.0 283.0 210.0 mm/Hg Respiratory Index 1.5 0.7 0.5 Hgb O2 Saturation (95.0-98.0) % Glucose 162 H 158 H 199 H (65-105) mg/dl Lactate 2.6 H 2.8 H 2.8 H (0.7-2.1) mmol/L Liter Flow 10.0 Vent Mode Prvc Prvc Mechanical Rate 10 FiO2 100.0 100.0 100.0 % Tidal Volume 500 500 PEEP 5 5 Crit Value Called To Crit Value Called By Cruz yeager,rt Crit Value Read Back Y Blood Gas Notified Time 1415 Sodium 147.0 147.0 141.0 (132-148) mmol/L Potassium (3.6-5.2) mmol/L Chloride 116.0 H 118.0 H 113.0 H (98-107) mmol/L Carbon Dioxide (22-30) mmol/L Anion Gap (10-20) BUN (7-17) mg/dL Creatinine (0.7-1.2) mg/dL Est GFR ( Amer) Est GFR (Non-Af Amer) POC Glucose (mg/dL) (65-110) mg/dL Random Glucose (65-105) mg/dL Lactic Acid (0.7-2.1) mmol/L Calcium (8.6-10.4) mg/dl Phosphorus (2.5-4.5) mg/dL Magnesium (1.6-2.3) mg/dL Total Bilirubin (0.2-1.3) mg/dL AST (14-36) U/L ALT (9-52) U/L Alkaline Phosphatase (38-126) U/L Ammonia (9-33) umol/L Troponin I (0.00-0.120) ng/mL NT-Pro-B Natriuret Pep (0-900) pg/mL Total Protein (6.3-8.3) g/dL Albumin (3.5-5.0) g/dL Globulin (2.2-3.9) gm/dL Albumin/Globulin Ratio (1.0-2.1) Arterial Blood Potassium 4.5 4.4 4.4 (3.6-5.2) mmol/L Salicylates mg/dL 1 Urine Opiates Screen (NEGATIVE) Urine Methadone Screen (NEGATIVE) Acetaminophen (10.0-30.0) ug/mL Ur Barbiturates Screen (NEGATIVE) Ur Phencyclidine Scrn (NEGATIVE) Ur Amphetamines Screen (NEGATIVE) U Benzodiazepines Scrn (NEGATIVE) U Oth Cocaine Metabols (NEGATIVE) U Cannabinoids Screen (NEGATIVE) Alcohol, Quantitative (0-10) mg/dl Blood Type Antibody Screen 07/17/18 07/17/18 07/17/18 Range/Units 11:39 11:10 07:15 WBC 19.2 H (4.8-10.8) K/uL RBC 5.00 (3.80-5.20) Mil/uL Hgb 13.2 D (11.0-16.0) g/dL Hct 40.4 (34.0-47.0) % MCV 80.8 L (81.0-99.0) fL MCH 26.4 L (27.0-31.0) pg MCHC 32.6 L (33.0-37.0) g/dL RDW 15.4 H (11.5-14.5) % Plt Count 291 D (130-400) K/uL MPV 10.1 (7.2-11.7) fL Neut % (Auto) 88.9 H (50.0-75.0) % Lymph % (Auto) 6.3 L (20.0-40.0) % [place] % (Auto) 4.6 (0.0-10.0) % Eos % (Auto) 0.0 (0.0-4.0) % Baso % (Auto) 0.2 (0.0-2.0) % Neut # (Auto) 17.1 H (1.8-7.0) K/uL Lymph # (Auto) 1.2 (1.0-4.3) K/uL [place] # (Auto) 0.9 H (0.0-0.8) K/uL Eos # (Auto) 0.0 (0.0-0.7) K/uL Baso # (Auto) 0.0 (0.0-0.2) K/uL Neutrophils % (Manual) 82 H (50-75) % Band Neutrophils % 8 H (0-2) % Lymphocytes % (Manual) 7 L (20-40) % Reactive Lymphs % 1 H (0-0) % Monocytes % (Manual) 2 (0-10) % Differential Comment Platelet Estimate Normal (NORMAL) Large Platelets Present Anisocytosis (manual) Slight Ovalocytes Slight PT (9.7-12.2) SECONDS INR APTT (21-34) SECONDS Fibrinogen (200-400) mg/dL Puncture Site Rra pCO2 22 L (35-45) mm/Hg pO2 420 H (80-100) mm/Hg HCO3 17.6 L (21-28) mmol/L ABG pH 7.39 (7.35-7.45) ABG Total CO2 14.0 L (22-28) mmol/L ABG O2 Saturation 100.1 H (95-98) % ABG Base Excess -9.5 L (-2.0-3.0) mmol/L ABG Hemoglobin (11.7-17.4) g/dL ABG Carboxyhemoglobin (0.5-1.5) % POC ABG HHb (Measured) (0.0-5.0) % ABG Methemoglobin (0.0-3.0) % Leobardo Test Po ABG Potassium 4.3 (3.6-5.2) mmol/L A-a O2 Difference 266.0 mm/Hg Respiratory Index 0.6 Hgb O2 Saturation (95.0-98.0) % Glucose 201 H (65-105) mg/dl Lactate 2.6 H (0.7-2.1) mmol/L Liter Flow Vent Mode Prvc Mechanical Rate FiO2 100.0 % Tidal Volume 500 PEEP 5 Crit Value Called To Crit Value Called By Crit Value Read Back Blood Gas Notified Time Sodium 141.0 (132-148) mmol/L Potassium (3.6-5.2) mmol/L Chloride 111.0 H (98-107) mmol/L Carbon Dioxide (22-30) mmol/L Anion Gap (10-20) BUN (7-17) mg/dL Creatinine (0.7-1.2) mg/dL Est GFR ( Amer) Est GFR (Non-Af Amer) POC Glucose (mg/dL) 222 H (65-110) mg/dL Random Glucose (65-105) mg/dL Lactic Acid (0.7-2.1) mmol/L Calcium (8.6-10.4) mg/dl Phosphorus (2.5-4.5) mg/dL Magnesium (1.6-2.3) mg/dL Total Bilirubin (0.2-1.3) mg/dL AST (14-36) U/L ALT (9-52) U/L Alkaline Phosphatase (38-126) U/L Ammonia (9-33) umol/L Troponin I (0.00-0.120) ng/mL NT-Pro-B Natriuret Pep (0-900) pg/mL Total Protein (6.3-8.3) g/dL Albumin (3.5-5.0) g/dL Globulin (2.2-3.9) gm/dL Albumin/Globulin Ratio (1.0-2.1) Arterial Blood Potassium 4.3 (3.6-5.2) mmol/L Salicylates mg/dL 1 Urine Opiates Screen (NEGATIVE) Urine Methadone Screen (NEGATIVE) Acetaminophen (10.0-30.0) ug/mL Ur Barbiturates Screen (NEGATIVE) Ur Phencyclidine Scrn (NEGATIVE) Ur Amphetamines Screen (NEGATIVE) U Benzodiazepines Scrn (NEGATIVE) U Oth Cocaine Metabols (NEGATIVE) U Cannabinoids Screen (NEGATIVE) Alcohol, Quantitative (0-10) mg/dl Blood Type Antibody Screen 07/17/18 07/17/18 07/17/18 Range/Units 07:11 07:11 07:11 WBC (4.8-10.8) K/uL RBC (3.80-5.20) Mil/uL Hgb (11.0-16.0) g/dL Hct (34.0-47.0) % MCV (81.0-99.0) fL MCH (27.0-31.0) pg MCHC (33.0-37.0) g/dL RDW (11.5-14.5) % Plt Count (130-400) K/uL MPV (7.2-11.7) fL Neut % (Auto) (50.0-75.0) % Lymph % (Auto) (20.0-40.0) % [place] % (Auto) (0.0-10.0) % Eos % (Auto) (0.0-4.0) % Baso % (Auto) (0.0-2.0) % Neut # (Auto) (1.8-7.0) K/uL Lymph # (Auto) (1.0-4.3) K/uL [place] # (Auto) (0.0-0.8) K/uL Eos # (Auto) (0.0-0.7) K/uL Baso # (Auto) (0.0-0.2) K/uL Neutrophils % (Manual) (50-75) % Band Neutrophils % (0-2) % Lymphocytes % (Manual) (20-40) % Reactive Lymphs % (0-0) % Monocytes % (Manual) (0-10) % Differential Comment Platelet Estimate (NORMAL) Large Platelets Anisocytosis (manual) Ovalocytes PT 12.0 (9.7-12.2) SECONDS INR 1.1 APTT 34 (21-34) SECONDS Fibrinogen 318 (200-400) mg/dL Puncture Site pCO2 (35-45) mm/Hg pO2 (80-100) mm/Hg HCO3 (21-28) mmol/L ABG pH (7.35-7.45) ABG Total CO2 (22-28) mmol/L ABG O2 Saturation (95-98) % ABG Base Excess (-2.0-3.0) mmol/L ABG Hemoglobin (11.7-17.4) g/dL ABG Carboxyhemoglobin (0.5-1.5) % POC ABG HHb (Measured) (0.0-5.0) % ABG Methemoglobin (0.0-3.0) % Leobardo Test ABG Potassium (3.6-5.2) mmol/L A-a O2 Difference mm/Hg Respiratory Index Hgb O2 Saturation (95.0-98.0) % Glucose (65-105) mg/dl Lactate (0.7-2.1) mmol/L Liter Flow Vent Mode Mechanical Rate FiO2 % Tidal Volume PEEP Crit Value Called To Crit Value Called By Crit Value Read Back Blood Gas Notified Time Sodium 137 (132-148) mmol/L Potassium 6.5 H* D (3.6-5.2) mmol/L Chloride 111 H (98-107) mmol/L Carbon Dioxide 20 L (22-30) mmol/L Anion Gap 12 (10-20) BUN 24 H (7-17) mg/dL Creatinine 1.3 H (0.7-1.2) mg/dL Est GFR ( Amer) 52 Est GFR (Non-Af Amer) 43 POC Glucose (mg/dL) (65-110) mg/dL Random Glucose 152 H (65-105) mg/dL Lactic Acid 1.6 (0.7-2.1) mmol/L Calcium 9.3 (8.6-10.4) mg/dl Phosphorus 2.5 (2.5-4.5) mg/dL Magnesium 2.0 (1.6-2.3) mg/dL Total Bilirubin 0.5 (0.2-1.3) mg/dL AST 62 H D (14-36) U/L ALT 8 L D (9-52) U/L Alkaline Phosphatase 88 (38-126) U/L Ammonia (9-33) umol/L Troponin I (0.00-0.120) ng/mL NT-Pro-B Natriuret Pep (0-900) pg/mL Total Protein 6.9 (6.3-8.3) g/dL Albumin 3.8 (3.5-5.0) g/dL Globulin 3.1 (2.2-3.9) gm/dL Albumin/Globulin Ratio 1.2 (1.0-2.1) Arterial Blood Potassium (3.6-5.2) mmol/L Salicylates mg/dL 1 Urine Opiates Screen (NEGATIVE) Urine Methadone Screen (NEGATIVE) Acetaminophen (10.0-30.0) ug/mL Ur Barbiturates Screen (NEGATIVE) Ur Phencyclidine Scrn (NEGATIVE) Ur Amphetamines Screen (NEGATIVE) U Benzodiazepines Scrn (NEGATIVE) U Oth Cocaine Metabols (NEGATIVE) U Cannabinoids Screen (NEGATIVE) Alcohol, Quantitative (0-10) mg/dl Blood Type Antibody Screen 07/17/18 07/17/18 07/17/18 Range/Units 06:03 05:14 02:19 WBC (4.8-10.8) K/uL RBC (3.80-5.20) Mil/uL Hgb (11.0-16.0) g/dL Hct (34.0-47.0) % MCV (81.0-99.0) fL MCH (27.0-31.0) pg MCHC (33.0-37.0) g/dL RDW (11.5-14.5) % Plt Count (130-400) K/uL MPV (7.2-11.7) fL Neut % (Auto) (50.0-75.0) % Lymph % (Auto) (20.0-40.0) % [place] % (Auto) (0.0-10.0) % Eos % (Auto) (0.0-4.0) % Baso % (Auto) (0.0-2.0) % Neut # (Auto) (1.8-7.0) K/uL Lymph # (Auto) (1.0-4.3) K/uL [place] # (Auto) (0.0-0.8) K/uL Eos # (Auto) (0.0-0.7) K/uL Baso # (Auto) (0.0-0.2) K/uL Neutrophils % (Manual) (50-75) % Band Neutrophils % (0-2) % Lymphocytes % (Manual) (20-40) % Reactive Lymphs % (0-0) % Monocytes % (Manual) (0-10) % Differential Comment Platelet Estimate (NORMAL) Large Platelets Anisocytosis (manual) Ovalocytes PT (9.7-12.2) SECONDS INR APTT (21-34) SECONDS Fibrinogen (200-400) mg/dL Puncture Site Rr pCO2 35 (35-45) mm/Hg pO2 221 H (80-100) mm/Hg HCO3 20.6 L (21-28) mmol/L ABG pH 7.35 (7.35-7.45) ABG Total CO2 20.4 L (22-28) mmol/L ABG O2 Saturation 100.2 H (95-98) % ABG Base Excess -5.6 L (-2.0-3.0) mmol/L ABG Hemoglobin 13.6 (11.7-17.4) g/dL ABG Carboxyhemoglobin 1.4 (0.5-1.5) % POC ABG HHb (Measured) -0.2 L (0.0-5.0) % ABG Methemoglobin 0.5 (0.0-3.0) % Leobardo Test Pos ABG Potassium (3.6-5.2) mmol/L A-a O2 Difference 92.0 mm/Hg Respiratory Index 0.4 Hgb O2 Saturation 98.2 H (95.0-98.0) % Glucose (65-105) mg/dl Lactate (0.7-2.1) mmol/L Liter Flow Vent Mode Prvc Mechanical Rate 12 FiO2 50.0 % Tidal Volume 500 PEEP 5 Crit Value Called To Crit Value Called By Crit Value Read Back Blood Gas Notified Time Sodium (132-148) mmol/L Potassium (3.6-5.2) mmol/L Chloride (98-107) mmol/L Carbon Dioxide (22-30) mmol/L Anion Gap (10-20) BUN (7-17) mg/dL Creatinine (0.7-1.2) mg/dL Est GFR ( Amer) Est GFR (Non-Af Amer) POC Glucose (mg/dL) 146 H 139 H (65-110) mg/dL Random Glucose (65-105) mg/dL Lactic Acid (0.7-2.1) mmol/L Calcium (8.6-10.4) mg/dl Phosphorus (2.5-4.5) mg/dL Magnesium (1.6-2.3) mg/dL Total Bilirubin (0.2-1.3) mg/dL AST (14-36) U/L ALT (9-52) U/L Alkaline Phosphatase (38-126) U/L Ammonia (9-33) umol/L Troponin I (0.00-0.120) ng/mL NT-Pro-B Natriuret Pep (0-900) pg/mL Total Protein (6.3-8.3) g/dL Albumin (3.5-5.0) g/dL Globulin (2.2-3.9) gm/dL Albumin/Globulin Ratio (1.0-2.1) Arterial Blood Potassium (3.6-5.2) mmol/L Salicylates mg/dL 1 Urine Opiates Screen (NEGATIVE) Urine Methadone Screen (NEGATIVE) Acetaminophen (10.0-30.0) ug/mL Ur Barbiturates Screen (NEGATIVE) Ur Phencyclidine Scrn (NEGATIVE) Ur Amphetamines Screen (NEGATIVE) U Benzodiazepines Scrn (NEGATIVE) U Oth Cocaine Metabols (NEGATIVE) U Cannabinoids Screen (NEGATIVE) Alcohol, Quantitative (0-10) mg/dl Blood Type Antibody Screen 07/16/18 07/16/18 07/16/18 Range/Units 22:56 21:46 21:43 WBC (4.8-10.8) K/uL RBC (3.80-5.20) Mil/uL Hgb (11.0-16.0) g/dL Hct (34.0-47.0) % MCV (81.0-99.0) fL MCH (27.0-31.0) pg MCHC (33.0-37.0) g/dL RDW (11.5-14.5) % Plt Count (130-400) K/uL MPV (7.2-11.7) fL Neut % (Auto) (50.0-75.0) % Lymph % (Auto) (20.0-40.0) % [place] % (Auto) (0.0-10.0) % Eos % (Auto) (0.0-4.0) % Baso % (Auto) (0.0-2.0) % Neut # (Auto) (1.8-7.0) K/uL Lymph # (Auto) (1.0-4.3) K/uL [place] # (Auto) (0.0-0.8) K/uL Eos # (Auto) (0.0-0.7) K/uL Baso # (Auto) (0.0-0.2) K/uL Neutrophils % (Manual) (50-75) % Band Neutrophils % (0-2) % Lymphocytes % (Manual) (20-40) % Reactive Lymphs % (0-0) % Monocytes % (Manual) (0-10) % Differential Comment Platelet Estimate (NORMAL) Large Platelets Anisocytosis (manual) Ovalocytes PT (9.7-12.2) SECONDS INR APTT (21-34) SECONDS Fibrinogen 221 (200-400) mg/dL Puncture Site Rra pCO2 33 L (35-45) mm/Hg pO2 294 H (80-100) mm/Hg HCO3 22.2 (21-28) mmol/L ABG pH 7.40 (7.35-7.45) ABG Total CO2 21.4 L (22-28) mmol/L ABG O2 Saturation 100.2 H (95-98) % ABG Base Excess -3.6 L (-2.0-3.0) mmol/L ABG Hemoglobin (11.7-17.4) g/dL ABG Carboxyhemoglobin (0.5-1.5) % POC ABG HHb (Measured) (0.0-5.0) % ABG Methemoglobin (0.0-3.0) % Leobardo Test Na ABG Potassium 2.4 L* (3.6-5.2) mmol/L A-a O2 Difference 378.0 mm/Hg Respiratory Index 1.3 Hgb O2 Saturation (95.0-98.0) % Glucose 141 H (65-105) mg/dl Lactate 1.6 (0.7-2.1) mmol/L Liter Flow Vent Mode Prvc Mechanical Rate 12 FiO2 100.0 % Tidal Volume 600 PEEP 5 Crit Value Called To Funmilayo gray rn Crit Value Called By Cony Crit Value Read Back Y Blood Gas Notified Time 2145 Sodium 140.0 (132-148) mmol/L Potassium (3.6-5.2) mmol/L Chloride 112.0 H (98-107) mmol/L Carbon Dioxide (22-30) mmol/L Anion Gap (10-20) BUN (7-17) mg/dL Creatinine (0.7-1.2) mg/dL Est GFR ( Amer) Est GFR (Non-Af Amer) POC Glucose (mg/dL) (65-110) mg/dL Random Glucose (65-105) mg/dL Lactic Acid (0.7-2.1) mmol/L Calcium (8.6-10.4) mg/dl Phosphorus (2.5-4.5) mg/dL Magnesium (1.6-2.3) mg/dL Total Bilirubin (0.2-1.3) mg/dL AST (14-36) U/L ALT (9-52) U/L Alkaline Phosphatase (38-126) U/L Ammonia < 9 L (9-33) umol/L Troponin I (0.00-0.120) ng/mL NT-Pro-B Natriuret Pep (0-900) pg/mL Total Protein (6.3-8.3) g/dL Albumin (3.5-5.0) g/dL Globulin (2.2-3.9) gm/dL Albumin/Globulin Ratio (1.0-2.1) Arterial Blood Potassium 2.4 L* (3.6-5.2) mmol/L Salicylates mg/dL 1 Urine Opiates Screen (NEGATIVE) Urine Methadone Screen (NEGATIVE) Acetaminophen (10.0-30.0) ug/mL Ur Barbiturates Screen (NEGATIVE) Ur Phencyclidine Scrn (NEGATIVE) Ur Amphetamines Screen (NEGATIVE) U Benzodiazepines Scrn (NEGATIVE) U Oth Cocaine Metabols (NEGATIVE) U Cannabinoids Screen (NEGATIVE) Alcohol, Quantitative (0-10) mg/dl Blood Type Antibody Screen 07/16/18 07/16/18 07/16/18 Range/Units 21:43 21:43 21:21 WBC (4.8-10.8) K/uL RBC (3.80-5.20) Mil/uL Hgb (11.0-16.0) g/dL Hct (34.0-47.0) % MCV (81.0-99.0) fL MCH (27.0-31.0) pg MCHC (33.0-37.0) g/dL RDW (11.5-14.5) % Plt Count (130-400) K/uL MPV (7.2-11.7) fL Neut % (Auto) (50.0-75.0) % Lymph % (Auto) (20.0-40.0) % [place] % (Auto) (0.0-10.0) % Eos % (Auto) (0.0-4.0) % Baso % (Auto) (0.0-2.0) % Neut # (Auto) (1.8-7.0) K/uL Lymph # (Auto) (1.0-4.3) K/uL [place] # (Auto) (0.0-0.8) K/uL Eos # (Auto) (0.0-0.7) K/uL Baso # (Auto) (0.0-0.2) K/uL Neutrophils % (Manual) (50-75) % Band Neutrophils % (0-2) % Lymphocytes % (Manual) (20-40) % Reactive Lymphs % (0-0) % Monocytes % (Manual) (0-10) % Differential Comment Platelet Estimate (NORMAL) Large Platelets Anisocytosis (manual) Ovalocytes PT (9.7-12.2) SECONDS INR APTT (21-34) SECONDS Fibrinogen (200-400) mg/dL Puncture Site pCO2 (35-45) mm/Hg pO2 (80-100) mm/Hg HCO3 (21-28) mmol/L ABG pH (7.35-7.45) ABG Total CO2 (22-28) mmol/L ABG O2 Saturation (95-98) % ABG Base Excess (-2.0-3.0) mmol/L ABG Hemoglobin (11.7-17.4) g/dL ABG Carboxyhemoglobin (0.5-1.5) % POC ABG HHb (Measured) (0.0-5.0) % ABG Methemoglobin (0.0-3.0) % Leobardo Test ABG Potassium (3.6-5.2) mmol/L A-a O2 Difference mm/Hg Respiratory Index Hgb O2 Saturation (95.0-98.0) % Glucose (65-105) mg/dl Lactate (0.7-2.1) mmol/L Liter Flow Vent Mode Mechanical Rate FiO2 % Tidal Volume PEEP Crit Value Called To Crit Value Called By Crit Value Read Back Blood Gas Notified Time Sodium 138 (132-148) mmol/L Potassium 2.9 L (3.6-5.2) mmol/L Chloride 108 H (98-107) mmol/L Carbon Dioxide 21 L (22-30) mmol/L Anion Gap 12 (10-20) BUN 20 H (7-17) mg/dL Creatinine 0.8 (0.7-1.2) mg/dL Est GFR ( Amer) > 60 Est GFR (Non-Af Amer) > 60 POC Glucose (mg/dL) (65-110) mg/dL Random Glucose 147 H D (65-105) mg/dL Lactic Acid 1.8 (0.7-2.1) mmol/L Calcium 8.6 (8.6-10.4) mg/dl Phosphorus 4.2 (2.5-4.5) mg/dL Magnesium 1.8 (1.6-2.3) mg/dL Total Bilirubin 0.3 (0.2-1.3) mg/dL AST 21 (14-36) U/L ALT 13 (9-52) U/L Alkaline Phosphatase 72 (38-126) U/L Ammonia (9-33) umol/L Troponin I 0.0400 (0.00-0.120) ng/mL NT-Pro-B Natriuret Pep 296 (0-900) pg/mL Total Protein 5.9 L (6.3-8.3) g/dL Albumin 3.3 L (3.5-5.0) g/dL Globulin 2.6 (2.2-3.9) gm/dL Albumin/Globulin Ratio 1.2 (1.0-2.1) Arterial Blood Potassium (3.6-5.2) mmol/L Salicylates mg/dL 1 Urine Opiates Screen Negative (NEGATIVE) Urine Methadone Screen Negative (NEGATIVE) Acetaminophen (10.0-30.0) ug/mL Ur Barbiturates Screen Negative (NEGATIVE) Ur Phencyclidine Scrn Negative (NEGATIVE) Ur Amphetamines Screen Negative (NEGATIVE) U Benzodiazepines Scrn Negative (NEGATIVE) U Oth Cocaine Metabols Negative (NEGATIVE) U Cannabinoids Screen Negative (NEGATIVE) Alcohol, Quantitative < 10 (0-10) mg/dl Blood Type Antibody Screen 07/16/18 07/16/18 07/16/18 Range/Units 20:57 20:57 20:57 WBC (4.8-10.8) K/uL RBC (3.80-5.20) Mil/uL Hgb (11.0-16.0) g/dL Hct (34.0-47.0) % MCV (81.0-99.0) fL MCH (27.0-31.0) pg MCHC (33.0-37.0) g/dL RDW (11.5-14.5) % Plt Count (130-400) K/uL MPV (7.2-11.7) fL Neut % (Auto) (50.0-75.0) % Lymph % (Auto) (20.0-40.0) % [place] % (Auto) (0.0-10.0) % Eos % (Auto) (0.0-4.0) % Baso % (Auto) (0.0-2.0) % Neut # (Auto) (1.8-7.0) K/uL Lymph # (Auto) (1.0-4.3) K/uL [place] # (Auto) (0.0-0.8) K/uL Eos # (Auto) (0.0-0.7) K/uL Baso # (Auto) (0.0-0.2) K/uL Neutrophils % (Manual) (50-75) % Band Neutrophils % (0-2) % Lymphocytes % (Manual) (20-40) % Reactive Lymphs % (0-0) % Monocytes % (Manual) (0-10) % Differential Comment Platelet Estimate (NORMAL) Large Platelets Anisocytosis (manual) Ovalocytes PT 12.3 H (9.7-12.2) SECONDS INR 1.1 APTT 34 (21-34) SECONDS Fibrinogen (200-400) mg/dL Puncture Site pCO2 (35-45) mm/Hg pO2 (80-100) mm/Hg HCO3 (21-28) mmol/L ABG pH (7.35-7.45) ABG Total CO2 (22-28) mmol/L ABG O2 Saturation (95-98) % ABG Base Excess (-2.0-3.0) mmol/L ABG Hemoglobin (11.7-17.4) g/dL ABG Carboxyhemoglobin (0.5-1.5) % POC ABG HHb (Measured) (0.0-5.0) % ABG Methemoglobin (0.0-3.0) % Leobardo Test ABG Potassium (3.6-5.2) mmol/L A-a O2 Difference mm/Hg Respiratory Index Hgb O2 Saturation (95.0-98.0) % Glucose (65-105) mg/dl Lactate (0.7-2.1) mmol/L Liter Flow Vent Mode Mechanical Rate FiO2 % Tidal Volume PEEP Crit Value Called To Crit Value Called By Crit Value Read Back Blood Gas Notified Time Sodium (132-148) mmol/L Potassium (3.6-5.2) mmol/L Chloride (98-107) mmol/L Carbon Dioxide (22-30) mmol/L Anion Gap (10-20) BUN (7-17) mg/dL Creatinine (0.7-1.2) mg/dL Est GFR ( Amer) Est GFR (Non-Af Amer) POC Glucose (mg/dL) (65-110) mg/dL Random Glucose (65-105) mg/dL Lactic Acid (0.7-2.1) mmol/L Calcium (8.6-10.4) mg/dl Phosphorus (2.5-4.5) mg/dL Magnesium (1.6-2.3) mg/dL Total Bilirubin (0.2-1.3) mg/dL AST (14-36) U/L ALT (9-52) U/L Alkaline Phosphatase (38-126) U/L Ammonia (9-33) umol/L Troponin I (0.00-0.120) ng/mL NT-Pro-B Natriuret Pep (0-900) pg/mL Total Protein (6.3-8.3) g/dL Albumin (3.5-5.0) g/dL Globulin (2.2-3.9) gm/dL Albumin/Globulin Ratio (1.0-2.1) Arterial Blood Potassium (3.6-5.2) mmol/L Salicylates < 1.0 mg/dL 1 Urine Opiates Screen (NEGATIVE) Urine Methadone Screen (NEGATIVE) Acetaminophen < 10.0 L (10.0-30.0) ug/mL Ur Barbiturates Screen (NEGATIVE) Ur Phencyclidine Scrn (NEGATIVE) Ur Amphetamines Screen (NEGATIVE) U Benzodiazepines Scrn (NEGATIVE) U Oth Cocaine Metabols (NEGATIVE) U Cannabinoids Screen (NEGATIVE) Alcohol, Quantitative (0-10) mg/dl Blood Type A POSITIVE Antibody Screen Negative 07/16/18 07/16/18 Range/Units 20:57 20:33 WBC 22.4 H D (4.8-10.8) K/uL RBC 5.95 H (3.80-5.20) Mil/uL Hgb 15.5 D (11.0-16.0) g/dL Hct 48.2 H (34.0-47.0) % MCV 81.1 D (81.0-99.0) fL MCH 26.0 L (27.0-31.0) pg MCHC 32.1 L (33.0-37.0) g/dL RDW 15.5 H (11.5-14.5) % Plt Count 428 H D (130-400) K/uL MPV 10.0 (7.2-11.7) fL Neut % (Auto) 46.2 L (50.0-75.0) % Lymph % (Auto) 46.8 H (20.0-40.0) % [place] % (Auto) 4.9 (0.0-10.0) % Eos % (Auto) 1.3 (0.0-4.0) % Baso % (Auto) 0.8 (0.0-2.0) % Neut # (Auto) 10.3 H (1.8-7.0) K/uL Lymph # (Auto) 10.5 H (1.0-4.3) K/uL [place] # (Auto) 1.1 H (0.0-0.8) K/uL Eos # (Auto) 0.3 (0.0-0.7) K/uL Baso # (Auto) 0.2 (0.0-0.2) K/uL Neutrophils % (Manual) (50-75) % Band Neutrophils % (0-2) % Lymphocytes % (Manual) (20-40) % Reactive Lymphs % (0-0) % Monocytes % (Manual) (0-10) % Differential Comment Platelet Estimate (NORMAL) Large Platelets Anisocytosis (manual) Ovalocytes PT (9.7-12.2) SECONDS INR APTT (21-34) SECONDS Fibrinogen (200-400) mg/dL Puncture Site pCO2 (35-45) mm/Hg pO2 (80-100) mm/Hg HCO3 (21-28) mmol/L ABG pH (7.35-7.45) ABG Total CO2 (22-28) mmol/L ABG O2 Saturation (95-98) % ABG Base Excess (-2.0-3.0) mmol/L ABG Hemoglobin (11.7-17.4) g/dL ABG Carboxyhemoglobin (0.5-1.5) % POC ABG HHb (Measured) (0.0-5.0) % ABG Methemoglobin (0.0-3.0) % Leobardo Test ABG Potassium (3.6-5.2) mmol/L A-a O2 Difference mm/Hg Respiratory Index Hgb O2 Saturation (95.0-98.0) % Glucose (65-105) mg/dl Lactate (0.7-2.1) mmol/L Liter Flow Vent Mode Mechanical Rate FiO2 % Tidal Volume PEEP Crit Value Called To Crit Value Called By Crit Value Read Back Blood Gas Notified Time Sodium (132-148) mmol/L Potassium (3.6-5.2) mmol/L Chloride (98-107) mmol/L Carbon Dioxide (22-30) mmol/L Anion Gap (10-20) BUN (7-17) mg/dL Creatinine (0.7-1.2) mg/dL Est GFR ( Amer) Est GFR (Non-Af Amer) POC Glucose (mg/dL) 155 H (65-110) mg/dL Random Glucose (65-105) mg/dL Lactic Acid (0.7-2.1) mmol/L Calcium (8.6-10.4) mg/dl Phosphorus (2.5-4.5) mg/dL Magnesium (1.6-2.3) mg/dL Total Bilirubin (0.2-1.3) mg/dL AST (14-36) U/L ALT (9-52) U/L Alkaline Phosphatase (38-126) U/L Ammonia (9-33) umol/L Troponin I (0.00-0.120) ng/mL NT-Pro-B Natriuret Pep (0-900) pg/mL Total Protein (6.3-8.3) g/dL Albumin (3.5-5.0) g/dL Globulin (2.2-3.9) gm/dL Albumin/Globulin Ratio (1.0-2.1) Arterial Blood Potassium (3.6-5.2) mmol/L Salicylates mg/dL 1 Urine Opiates Screen (NEGATIVE) Urine Methadone Screen (NEGATIVE) Acetaminophen (10.0-30.0) ug/mL Ur Barbiturates Screen (NEGATIVE) Ur Phencyclidine Scrn (NEGATIVE) Ur Amphetamines Screen (NEGATIVE) U Benzodiazepines Scrn (NEGATIVE) U Oth Cocaine Metabols (NEGATIVE) U Cannabinoids Screen (NEGATIVE) Alcohol, Quantitative (0-10) mg/dl Blood Type Antibody Screen Laboratory Results - last 24 hr 07/16/18 07/16/18 07/16/18 20:33 20:57 20:57 WBC 22.4 H D RBC 5.95 H Hgb 15.5 D Hct 48.2 H MCV 81.1 D MCH 26.0 L MCHC 32.1 L RDW 15.5 H Plt Count 428 H D MPV 10.0 Neut % (Auto) 46.2 L Lymph % (Auto) 46.8 H [place] % (Auto) 4.9 Eos % (Auto) 1.3 Baso % (Auto) 0.8 Neut # (Auto) 10.3 H Lymph # (Auto) 10.5 H [place] # (Auto) 1.1 H Eos # (Auto) 0.3 Baso # (Auto) 0.2 Neutrophils % (Manual) Band Neutrophils % Lymphocytes % (Manual) Reactive Lymphs % Monocytes % (Manual) Differential Comment Platelet Estimate Large Platelets Anisocytosis (manual) Ovalocytes PT 12.3 H INR 1.1 APTT 34 Fibrinogen Puncture Site pCO2 pO2 HCO3 ABG pH ABG Total CO2 ABG O2 Saturation ABG Base Excess ABG Hemoglobin ABG Carboxyhemoglobin POC ABG HHb (Measured) ABG Methemoglobin Leobardo Test ABG Potassium A-a O2 Difference Respiratory Index Hgb O2 Saturation Glucose Lactate Liter Flow Vent Mode Mechanical Rate FiO2 Tidal Volume PEEP Crit Value Called To Crit Value Called By Crit Value Read Back Blood Gas Notified Time Sodium Potassium Chloride Carbon Dioxide Anion Gap BUN Creatinine Est GFR ( Amer) Est GFR (Non-Af Amer) POC Glucose (mg/dL) 155 H Random Glucose Lactic Acid Calcium Phosphorus Magnesium Total Bilirubin AST ALT Alkaline Phosphatase Ammonia Troponin I NT-Pro-B Natriuret Pep Total Protein Albumin Globulin Albumin/Globulin Ratio Arterial Blood Potassium Salicylates Urine Opiates Screen Urine Methadone Screen Acetaminophen Ur Barbiturates Screen Ur Phencyclidine Scrn Ur Amphetamines Screen U Benzodiazepines Scrn U Oth Cocaine Metabols U Cannabinoids Screen Alcohol, Quantitative Blood Type Antibody Screen 07/16/18 07/16/18 07/16/18 20:57 20:57 21:21 WBC RBC Hgb Hct MCV MCH MCHC RDW Plt Count MPV Neut % (Auto) Lymph % (Auto) [place] % (Auto) Eos % (Auto) Baso % (Auto) Neut # (Auto) Lymph # (Auto) [place] # (Auto) Eos # (Auto) Baso # (Auto) Neutrophils % (Manual) Band Neutrophils % Lymphocytes % (Manual) Reactive Lymphs % Monocytes % (Manual) Differential Comment Platelet Estimate Large Platelets Anisocytosis (manual) Ovalocytes PT INR APTT Fibrinogen Puncture Site pCO2 pO2 HCO3 ABG pH ABG Total CO2 ABG O2 Saturation ABG Base Excess ABG Hemoglobin ABG Carboxyhemoglobin POC ABG HHb (Measured) ABG Methemoglobin Leobardo Test ABG Potassium A-a O2 Difference Respiratory Index Hgb O2 Saturation Glucose Lactate Liter Flow Vent Mode Mechanical Rate FiO2 Tidal Volume PEEP Crit Value Called To Crit Value Called By Crit Value Read Back Blood Gas Notified Time Sodium Potassium Chloride Carbon Dioxide Anion Gap BUN Creatinine Est GFR ( Amer) Est GFR (Non-Af Amer) POC Glucose (mg/dL) Random Glucose Lactic Acid Calcium Phosphorus Magnesium Total Bilirubin AST ALT Alkaline Phosphatase Ammonia Troponin I NT-Pro-B Natriuret Pep Total Protein Albumin Globulin Albumin/Globulin Ratio Arterial Blood Potassium Salicylates < 1.0 Urine Opiates Screen Negative Urine Methadone Screen Negative Acetaminophen < 10.0 L Ur Barbiturates Screen Negative Ur Phencyclidine Scrn Negative Ur Amphetamines Screen Negative U Benzodiazepines Scrn Negative U Oth Cocaine Metabols Negative U Cannabinoids Screen Negative Alcohol, Quantitative Blood Type A POSITIVE Antibody Screen Negative 07/16/18 07/16/18 07/16/18 21:43 21:43 21:43 WBC RBC Hgb Hct MCV MCH MCHC RDW Plt Count MPV Neut % (Auto) Lymph % (Auto) [place] % (Auto) Eos % (Auto) Baso % (Auto) Neut # (Auto) Lymph # (Auto) [place] # (Auto) Eos # (Auto) Baso # (Auto) Neutrophils % (Manual) Band Neutrophils % Lymphocytes % (Manual) Reactive Lymphs % Monocytes % (Manual) Differential Comment Platelet Estimate Large Platelets Anisocytosis (manual) Ovalocytes PT INR APTT Fibrinogen Puncture Site pCO2 pO2 HCO3 ABG pH ABG Total CO2 ABG O2 Saturation ABG Base Excess ABG Hemoglobin ABG Carboxyhemoglobin POC ABG HHb (Measured) ABG Methemoglobin Leobardo Test ABG Potassium A-a O2 Difference Respiratory Index Hgb O2 Saturation Glucose Lactate Liter Flow Vent Mode Mechanical Rate FiO2 Tidal Volume PEEP Crit Value Called To Crit Value Called By Crit Value Read Back Blood Gas Notified Time Sodium 138 Potassium 2.9 L Chloride 108 H Carbon Dioxide 21 L Anion Gap 12 BUN 20 H Creatinine 0.8 Est GFR ( Amer) > 60 Est GFR (Non-Af Amer) > 60 POC Glucose (mg/dL) Random Glucose 147 H D Lactic Acid 1.8 Calcium 8.6 Phosphorus 4.2 Magnesium 1.8 Total Bilirubin 0.3 AST 21 ALT 13 Alkaline Phosphatase 72 Ammonia < 9 L Troponin I 0.0400 NT-Pro-B Natriuret Pep 296 Total Protein 5.9 L Albumin 3.3 L Globulin 2.6 Albumin/Globulin Ratio 1.2 Arterial Blood Potassium Salicylates Urine Opiates Screen Urine Methadone Screen Acetaminophen Ur Barbiturates Screen Ur Phencyclidine Scrn Ur Amphetamines Screen U Benzodiazepines Scrn U Oth Cocaine Metabols U Cannabinoids Screen Alcohol, Quantitative < 10 Blood Type Antibody Screen 07/16/18 07/16/18 07/17/18 21:46 22:56 02:19 WBC RBC Hgb Hct MCV MCH MCHC RDW Plt Count MPV Neut % (Auto) Lymph % (Auto) [place] % (Auto) Eos % (Auto) Baso % (Auto) Neut # (Auto) Lymph # (Auto) [place] # (Auto) Eos # (Auto) Baso # (Auto) Neutrophils % (Manual) Band Neutrophils % Lymphocytes % (Manual) Reactive Lymphs % Monocytes % (Manual) Differential Comment Platelet Estimate Large Platelets Anisocytosis (manual) Ovalocytes PT INR APTT Fibrinogen 221 Puncture Site Rra pCO2 33 L pO2 294 H HCO3 22.2 ABG pH 7.40 ABG Total CO2 21.4 L ABG O2 Saturation 100.2 H ABG Base Excess -3.6 L ABG Hemoglobin ABG Carboxyhemoglobin POC ABG HHb (Measured) ABG Methemoglobin Leobardo Test Na ABG Potassium 2.4 L* A-a O2 Difference 378.0 Respiratory Index 1.3 Hgb O2 Saturation Glucose 141 H Lactate 1.6 Liter Flow Vent Mode Prvc Mechanical Rate 12 FiO2 100.0 Tidal Volume 600 PEEP 5 Crit Value Called To Funmilayo gray rn Crit Value Called By Cony Crit Value Read Back Y Blood Gas Notified Time 214 Sodium 140.0 Potassium Chloride 112.0 H Carbon Dioxide Anion Gap BUN Creatinine Est GFR ( Amer) Est GFR (Non-Af Amer) POC Glucose (mg/dL) 139 H Random Glucose Lactic Acid Calcium Phosphorus Magnesium Total Bilirubin AST ALT Alkaline Phosphatase Ammonia Troponin I NT-Pro-B Natriuret Pep Total Protein Albumin Globulin Albumin/Globulin Ratio Arterial Blood Potassium 2.4 L* Salicylates Urine Opiates Screen Urine Methadone Screen Acetaminophen Ur Barbiturates Screen Ur Phencyclidine Scrn Ur Amphetamines Screen U Benzodiazepines Scrn U Oth Cocaine Metabols U Cannabinoids Screen Alcohol, Quantitative Blood Type Antibody Screen 07/17/18 07/17/18 07/17/18 05:14 06:03 07:11 WBC RBC Hgb Hct MCV MCH MCHC RDW Plt Count MPV Neut % (Auto) Lymph % (Auto) [place] % (Auto) Eos % (Auto) Baso % (Auto) Neut # (Auto) Lymph # (Auto) [place] # (Auto) Eos # (Auto) Baso # (Auto) Neutrophils % (Manual) Band Neutrophils % Lymphocytes % (Manual) Reactive Lymphs % Monocytes % (Manual) Differential Comment Platelet Estimate Large Platelets Anisocytosis (manual) Ovalocytes PT 12.0 INR 1.1 APTT 34 Fibrinogen 318 Puncture Site Rr pCO2 35 pO2 221 H HCO3 20.6 L ABG pH 7.35 ABG Total CO2 20.4 L ABG O2 Saturation 100.2 H ABG Base Excess -5.6 L ABG Hemoglobin 13.6 ABG Carboxyhemoglobin 1.4 POC ABG HHb (Measured) -0.2 L ABG Methemoglobin 0.5 Leobardo Test Pos ABG Potassium A-a O2 Difference 92.0 Respiratory Index 0.4 Hgb O2 Saturation 98.2 H Glucose Lactate Liter Flow Vent Mode Prvc Mechanical Rate 12 FiO2 50.0 Tidal Volume 500 PEEP 5 Crit Value Called To Crit Value Called By Crit Value Read Back Blood Gas Notified Time Sodium Potassium Chloride Carbon Dioxide Anion Gap BUN Creatinine Est GFR ( Amer) Est GFR (Non-Af Amer) POC Glucose (mg/dL) 146 H Random Glucose Lactic Acid Calcium Phosphorus Magnesium Total Bilirubin AST ALT Alkaline Phosphatase Ammonia Troponin I NT-Pro-B Natriuret Pep Total Protein Albumin Globulin Albumin/Globulin Ratio Arterial Blood Potassium Salicylates Urine Opiates Screen Urine Methadone Screen Acetaminophen Ur Barbiturates Screen Ur Phencyclidine Scrn Ur Amphetamines Screen U Benzodiazepines Scrn U Oth Cocaine Metabols U Cannabinoids Screen Alcohol, Quantitative Blood Type Antibody Screen 07/17/18 07/17/18 07/17/18 07:11 07:11 07:15 WBC 19.2 H RBC 5.00 Hgb 13.2 D Hct 40.4 MCV 80.8 L MCH 26.4 L MCHC 32.6 L RDW 15.4 H Plt Count 291 D MPV 10.1 Neut % (Auto) 88.9 H Lymph % (Auto) 6.3 L [place] % (Auto) 4.6 Eos % (Auto) 0.0 Baso % (Auto) 0.2 Neut # (Auto) 17.1 H Lymph # (Auto) 1.2 [place] # (Auto) 0.9 H Eos # (Auto) 0.0 Baso # (Auto) 0.0 Neutrophils % (Manual) 82 H Band Neutrophils % 8 H Lymphocytes % (Manual) 7 L Reactive Lymphs % 1 H Monocytes % (Manual) 2 Differential Comment Platelet Estimate Normal Large Platelets Present Anisocytosis (manual) Slight Ovalocytes Slight PT INR APTT Fibrinogen Puncture Site pCO2 pO2 HCO3 ABG pH ABG Total CO2 ABG O2 Saturation ABG Base Excess ABG Hemoglobin ABG Carboxyhemoglobin POC ABG HHb (Measured) ABG Methemoglobin Leobardo Test ABG Potassium A-a O2 Difference Respiratory Index Hgb O2 Saturation Glucose Lactate Liter Flow Vent Mode Mechanical Rate FiO2 Tidal Volume PEEP Crit Value Called To Crit Value Called By Crit Value Read Back Blood Gas Notified Time Sodium 137 Potassium 6.5 H* D Chloride 111 H Carbon Dioxide 20 L Anion Gap 12 BUN 24 H Creatinine 1.3 H Est GFR ( Amer) 52 Est GFR (Non-Af Amer) 43 POC Glucose (mg/dL) Random Glucose 152 H Lactic Acid 1.6 Calcium 9.3 Phosphorus 2.5 Magnesium 2.0 Total Bilirubin 0.5 AST 62 H D ALT 8 L D Alkaline Phosphatase 88 Ammonia Troponin I NT-Pro-B Natriuret Pep Total Protein 6.9 Albumin 3.8 Globulin 3.1 Albumin/Globulin Ratio 1.2 Arterial Blood Potassium Salicylates Urine Opiates Screen Urine Methadone Screen Acetaminophen Ur Barbiturates Screen Ur Phencyclidine Scrn Ur Amphetamines Screen U Benzodiazepines Scrn U Oth Cocaine Metabols U Cannabinoids Screen Alcohol, Quantitative Blood Type Antibody Screen 07/17/18 07/17/18 07/17/18 11:10 11:39 11:48 WBC RBC Hgb Hct MCV MCH MCHC RDW Plt Count MPV Neut % (Auto) Lymph % (Auto) [place] % (Auto) Eos % (Auto) Baso % (Auto) Neut # (Auto) Lymph # (Auto) [place] # (Auto) Eos # (Auto) Baso # (Auto) Neutrophils % (Manual) Band Neutrophils % Lymphocytes % (Manual) Reactive Lymphs % Monocytes % (Manual) Differential Comment Platelet Estimate Large Platelets Anisocytosis (manual) Ovalocytes PT INR APTT Fibrinogen Puncture Site Rra Rra pCO2 22 L 33 L pO2 420 H 462 H HCO3 17.6 L 16.3 L ABG pH 7.39 7.26 L ABG Total CO2 14.0 L 15.8 L ABG O2 Saturation 100.1 H 100.3 H ABG Base Excess -9.5 L -11.2 L ABG Hemoglobin ABG Carboxyhemoglobin POC ABG HHb (Measured) ABG Methemoglobin Leobardo Test Po Po ABG Potassium 4.3 4.4 A-a O2 Difference 266.0 210.0 Respiratory Index 0.6 0.5 Hgb O2 Saturation Glucose 201 H 199 H Lactate 2.6 H 2.8 H Liter Flow Vent Mode Prvc Prvc Mechanical Rate 10 FiO2 100.0 100.0 Tidal Volume 500 500 PEEP 5 5 Crit Value Called To Crit Value Called By Crit Value Read Back Blood Gas Notified Time Sodium 141.0 141.0 Potassium Chloride 111.0 H 113.0 H Carbon Dioxide Anion Gap BUN Creatinine Est GFR ( Amer) Est GFR (Non-Af Amer) POC Glucose (mg/dL) 222 H Random Glucose Lactic Acid Calcium Phosphorus Magnesium Total Bilirubin AST ALT Alkaline Phosphatase Ammonia Troponin I NT-Pro-B Natriuret Pep Total Protein Albumin Globulin Albumin/Globulin Ratio Arterial Blood Potassium 4.3 4.4 Salicylates Urine Opiates Screen Urine Methadone Screen Acetaminophen Ur Barbiturates Screen Ur Phencyclidine Scrn Ur Amphetamines Screen U Benzodiazepines Scrn U Oth Cocaine Metabols U Cannabinoids Screen Alcohol, Quantitative Blood Type Antibody Screen 07/17/18 07/17/18 11:49 13:53 WBC RBC Hgb Hct MCV MCH MCHC RDW Plt Count MPV Neut % (Auto) Lymph % (Auto) [place] % (Auto) Eos % (Auto) Baso % (Auto) Neut # (Auto) Lymph # (Auto) [place] # (Auto) Eos # (Auto) Baso # (Auto) Neutrophils % (Manual) Band Neutrophils % Lymphocytes % (Manual) Reactive Lymphs % Monocytes % (Manual) Differential Comment Platelet Estimate Large Platelets Anisocytosis (manual) Ovalocytes PT INR APTT Fibrinogen Puncture Site Ra Rra,apnea test pCO2 39 65 H pO2 381 H 250 H HCO3 21.6 21.4 ABG pH 7.34 L 7.19 L* ABG Total CO2 22.2 26.8 ABG O2 Saturation 100.3 H 99.9 H ABG Base Excess -4.4 L -4.6 L ABG Hemoglobin ABG Carboxyhemoglobin POC ABG HHb (Measured) ABG Methemoglobin Leobardo Test Po Po ABG Potassium 4.4 4.5 A-a O2 Difference 283.0 382.0 Respiratory Index 0.7 1.5 Hgb O2 Saturation Glucose 158 H 162 H Lactate 2.8 H 2.6 H Liter Flow 10.0 Vent Mode Prvc Mechanical Rate FiO2 100.0 100.0 Tidal Volume 500 PEEP 5 Crit Value Called To Crit Value Called By Cruz yeager,rt Crit Value Read Back Y Blood Gas Notified Time 1415 Sodium 147.0 147.0 Potassium Chloride 118.0 H 116.0 H Carbon Dioxide Anion Gap BUN Creatinine Est GFR ( Amer) Est GFR (Non-Af Amer) POC Glucose (mg/dL) Random Glucose Lactic Acid Calcium Phosphorus Magnesium Total Bilirubin AST ALT Alkaline Phosphatase Ammonia Troponin I NT-Pro-B Natriuret Pep Total Protein Albumin Globulin Albumin/Globulin Ratio Arterial Blood Potassium 4.4 4.5 Salicylates Urine Opiates Screen Urine Methadone Screen Acetaminophen Ur Barbiturates Screen Ur Phencyclidine Scrn Ur Amphetamines Screen U Benzodiazepines Scrn U Oth Cocaine Metabols U Cannabinoids Screen Alcohol, Quantitative Blood Type Antibody Screen Radiology Impressions: Radiology Impressions Chest X-Ray 07/16/18 20:49 IMPRESSION: No active pulmonary disease. Head CT 07/16/18 20:51 IMPRESSION: Large intraparenchymal hemorrhage at the left cerebral hemisphere involving the left basal ganglia left centrum semiovale coronal radiata left temporal and frontal lobes. Large mass effect on the lateral ventricles and approximately 8 millimeter [id number] midline shift. Focal hemorrhage noted around the pontine and basilar cistern. Foci of subarachnoid hemorrhage and possible small amount of subdural hemorrhage along the tentorial leaflets. Diffuse effacement of the brain sulci suggestive of increased intracranial pressure . Suspicious for transtentorial and uncal brain herniation. Preliminary report was submitted by [facility] Radiology contains concordant findings. Head CT 07/17/18 05:00 IMPRESSION: Again noted is large intraparenchymal hemorrhage at the left cerebral hemisphere surrounding with edema and resulting in mass effect and approximately 8 millimeter [id number] midline shift. Subarachnoid hemorrhage and small subdural hemorrhage along tentorial leaflets. Diffuse effacement of the brain sulci suggestive of increased intracranial pressure. Findings are again suspicious for transtentorial and uncal brain herniation. Head/Neck CTA 07/17/18 06:17 IMPRESSION: 1. 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 2. 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 3. Complete occlusion of the right V3 and V4 segments and the left V2, V3 and V4 segments. Critical findings were discussed with solar mechanical engineer Dr. Cortés on 07/17/2018 at 10:40 a.m. Chest X-Ray 07/17/18 07:24 IMPRESSION: No active disease. EKG/Cardiology Studies: Cardiology / EKG Studies 07/16/18 21:12 EKG [ELECTROCARDIOGRAM] Stat Comment: Mode Of Transportation: Reason For Exam: AMS Attending/Attestation - Attestation I have personally seen and examined this patient.: Yes I have fully participated in the care of the patient.: Yes I have reviewed all pertinent clinical information: Yes Notes (Text): 03/29/19 19:11 I have seen and examined the patient. Medical records, lab studies, and imaging were reviewed by me and a management plan was formulated on multidisciplinary rounds with resident Dr. Flood. I agree with their documented assessment and plan. Patient declared brain at 14:15. spoke to family and PMD. [facility] called, family agreed to organ donation. Critical Care Time 35 minutes. Multi-disciplinary rounds were performed with house staff, nursing, speech therapy, respiratory therapy, pharmacy and nutrition with integrated input from the primary team/attending and other consulting services. The documented time is cumulative and includes review of patient data/exams/labs/chart review and examination of the patient on rounds and throughout the day; time is exclusive of any procedures or teaching time.
[2018-07-17 08:54] LABS: BANDS 8 % (0-2); LYMPHOCYTE 7 % (20-40); MONOCYTE 2 % (0-10); NEUTROPHIL 82 % (50-75); REACTIVE LYMPHOCYTES 1 % (0-0); TOTAL CELLS COUNTED 100
[2018-07-17 08:55] LABS: ANISOCYTOSIS SLIGHT; LARGE PLATELETS PRESENT; OVALOCYTES SLIGHT; PLATELET ESTIMATE NORMAL (NORMAL)
--- NOTE | 2018-07-17 09:51 | RAD ---
Date of service: 07/16/2018 HISTORY: AMS bed 12 COMPARISON: 12/28/2014 FINDINGS: Endotracheal tube terminates in the mid trachea. LUNGS: The lungs are well inflated and clear. PLEURA: No pleural effusions or pneumothorax. CARDIOVASCULAR: There is mild cardiomegaly. No aortic atherosclerotic calcifications present. OSSEOUS STRUCTURES: Within normal limits for the patient's age. VISUALIZED UPPER ABDOMEN: Normal. OTHER FINDINGS: None. IMPRESSION: No active pulmonary disease.
--- NOTE | 2018-07-17 10:46 | CT ---
Date of service: The 07/17/2018 PROCEDURE: CTA HEAD AND NECK WITH CONTRAST HISTORY: 2289.74 COMPARISON: None available. TECHNIQUE: Initial noncontrast head CT was performed. Subsequently, CT angiogram of the head and neck were performed after the intravenous administration of 80 mL of Omnipaque 350. Contiguous 1.5mm thick images were obtained in the axial plane of the neck. 2-D coronal and sagittal MPR images were obtained. Imaging postprocessing was performed with 3-D images also obtained. A delayed contrast head CT was also obtained. This CT exam was performed using one or more of the following dose reduction techniques: Automated exposure control, adjustment of the mA and/or kV according to patient size, and/or use of iterative reconstruction technique. Contrast dose: 100 mL Visipaque 320 Radiation dose: Total exam DLP = 654.17 mGy-cm. FINDINGS: HEAD: Right: There is complete absence of flow in the intracranial internal carotid artery, and anterior and middle cerebral arteries are widely patent. Left: There is complete absence of flow in the intracranial internal carotid artery, and anterior and middle cerebral arteries are widely patent. Posterior circulation: There is complete absence of flow in the intracranial vertebral arteries, basilar artery and posterior cerebral arteries are widely patent. The NECK: There is a three vessel aortic arch. There is no stenosis at the origins of the great vessels at the level of the aortic arch. No atherosclerotic calcification or mural plaque present. Right Carotid: On the right, the common carotid and external carotid arteries are widely patent. There is diminished flow in the distal cervical segment of the internal carotid artery and complete occlusion of the internal carotid artery at the base of the skull with no distal flow. Left Carotid: On the left, the common carotid and external carotid arteries are widely patent. There is complete occlusion of the internal carotid artery approximately 3 cm distal to its origin. The right V1 and V2 segments are patent. There is complete occlusion of the V3 and V4 segments. On the left the V1 segment is patent. Complete occlusion of the V2, V3 and V4 segments. Enlarged multinodular thyroid gland IMPRESSION: 1. 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 2. 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 3. Complete occlusion of the right V3 and V4 segments and the left V2, V3 and V4 segments. Critical findings were discussed with speech assistant Dr. Cortés on 07/17/2018 at 10:40 a.m.
--- NOTE | 2018-07-17 11:05 | CARD ---
APPROVED REPORT Date of service: 07/16/2018 EKG Measurement Heart [id number] <Conclusion> Sinus tachycardia with frequent premature ventricular complexes Left axis deviation Pulmonary disease pattern Incomplete right bundle branch block Left ventricular hypertrophy with repolarization abnormality Cannot rule out Septal infarct, age undetermined Abnormal ECG
[2018-07-17 11:14] LABS: ABG ALLEN TEST PO; ARTERIAL BLOOD GAS HCO3 17.6 mmol/L (21-28); ARTERIAL BLOOD GAS O2 SAT 100.1 % (95-98); ARTERIAL BLOOD GAS PCO2 22 mm/Hg (35-45); ARTERIAL BLOOD GAS PH 7.39 (7.35-7.45); ARTERIAL BLOOD GAS PO2 420 mm/Hg (80-100)
--- NOTE | 2018-07-17 11:52 | CP.PCM.CON ---
History of Present Illness - History of Present Illness History of Present Illness: PGY-1 Neurology Consult Note for Dr. Spicer Patient is a 52 year old female with unknown PMHx was BIB EMS after suddenly going flushed and unresponsive at a meeting. Friends and family at bedside do not know her medical history or family history. Patient was intubated on arrival. All history limited 2/2 AMS. Review of Systems - Review of Systems Systems not reviewed;Unavailable: Acuity of Condition, Intubated Past Patient History - Infectious Disease Hx of Infectious Diseases: None - Tetanus Immunizations Tetanus Immunization: Unknown - Past Medical History & Family History Past Medical History?: Yes - Past Social History Smoking Status: Never Smoked - CARDIAC Hx Hypertension: Yes Hx Peripheral Edema: Yes - PULMONARY Hx Asthma: Yes Hx Sleep Apnea: Yes (NO LONGER HAS IT) - NEUROLOGICAL Hx Neurological Disorder: No - HEENT Hx HEENT Problems: Yes (NEARSIGHTEDNESS) - RENAL Hx Chronic Kidney Disease: No - ENDOCRINE/METABOLIC Hx Endocrine Disorders: No - HEMATOLOGICAL/ONCOLOGICAL Hx Anemia: Yes - INTEGUMENTARY Hx Dermatological Problems: No - MUSCULOSKELETAL/RHEUMATOLOGICAL Hx Musculoskeletal Disorders: Yes Hx Back Pain: Yes Hx Herniated Disk: Yes (LUMBAR SPINE) - GASTROINTESTINAL Hx Gastrointestinal Disorders: No - GENITOURINARY/GYNECOLOGICAL Hx Genitourinary Disorders: Yes (HX FIBROID UTERUS HYSTERECTOMY) - PSYCHIATRIC Hx Substance Use: No - SURGICAL HISTORY Hx Surgeries: Yes (EPIDURAL INJECTION IN BACK 11/27/13) Hx Section: Yes (1985, 1989, 1990) Hx Dilation and Curettage: Yes (2010, 2013) Hx Gastric Bypass Surgery: Yes (GASTRIC SLEEVE) Hx Hysterectomy: Yes Hx Tubal Ligation: Yes (1990) - ANESTHESIA Hx Anesthesia: Yes Hx Anesthesia Reactions: No Hx Malignant Hyperthermia: No Meds Allergies/Adverse Reactions: Allergies Allergy/AdvReac Type Severity Reaction Status Date / Time No Known Allergies Allergy Verified 07/16/18 20:42 - Medications Medications: Current Medications Albuterol/Ipratropium (Duoneb 3 Mg/0.5 Mg (3 Ml) Ud) 3 ml INH RQ6 DONALDO Last Admin: 07/17/18 07:44 Dose: 3 ml Dexamethasone (Decadron Inj) 4 mg IV Q6H DONALDO Levetiracetam 500 mg/ Dextrose 105 mls @ 420 mls/hr IVPB Q12H DONALDO Last Admin: 07/17/18 10:40 Dose: 420 mls/hr Propofol (Diprivan) 1,000 mg in 100 mls @ 2.858 mls/hr IV .Q24H PRN; Protocol PRN Reason: TITRATE PER MD ORDER Vancomycin/Sodium Chloride (Vancomycin 1 Gm/Ns 200 Ml) 1 gm in 200 mls @ 133 mls/hr IVPB Q12H DONALDO; Protocol Stop: 07/22/18 00:01 Last Admin: 07/17/18 11:31 Dose: 133 mls/hr Ceftriaxone Sodium 2 gm/ (Sodium Chloride) 100 mls @ 200 mls/hr IVPB Q12H DONALDO; Protocol Last Admin: 07/17/18 11:03 Dose: 200 mls/hr Nicardipine HCl 25 mg/ Sodium (Chloride) 250 mls @ 50 mls/hr IV .Q5H DONALDO; Protocol Last Admin: 07/17/18 10:37 Dose: 5 mg/hr, 50 mls/hr Pantoprazole Sodium (Protonix Inj) 40 mg IVP Q12H DONALDO Last Admin: 07/17/18 03:30 Dose: 40 mg Physical Exam - Constitutional Appears: Toxic, Confused - Head Exam Head Exam: ATRAUMATIC, NORMOCEPHALIC - Eye Exam Pupil Exam: Fixed, Mydriatic - ENT Exam ENT Exam: Mucous Membranes Dry - Respiratory Exam Additional comments: PRVC 20/500/5/50% - Cardiovascular Exam Cardiovascular Exam: Tachycardia, +S1, +S2 - GI/Abdominal Exam GI & Abdominal Exam: Normal Bowel Sounds, Soft. absent: Tenderness - Extremities Exam Extremities exam: Positive for: normal capillary refill. Negative for: pedal pulses present - Expanded Neurological Exam Expanded Neurological exam: Total Aphasia Speech: Total Aphasia Cranial nerves: Gag Reflex: Abnormal Left, Abnormal Right (per ICU prior to intubation) DTR: Bicep Left: 0, Bicep Right: 0, Brachioradialis Left: 0, Brachioradialis Right: 0, Patellar Left: 0, Patellar Right: 0 Coma Scale Eye Opening: None Coma Scale Motor Response: None Coma Scale Verbal: None Coma Scale Total: 3 - Skin Skin Exam: Dry, Pallor Results - Vital Signs Recent Vital Signs: Last Vital Signs Temp 95.9 F L 07/17/18 04:00 Pulse 85 03/29/19 10:10 Resp 20 07/17/18 10:10 BP 140/89 07/17/18 09:06 Pulse Ox 100 07/17/18 10:10 - Labs Result Diagrams: 07/17/18 07:15 07/17/18 07:11 Labs: Laboratory Results - last 24 hr 07/16/18 07/16/18 07/16/18 20:33 20:57 20:57 WBC 22.4 H D RBC 5.95 H Hgb 15.5 D Hct 48.2 H MCV 81.1 D MCH 26.0 L MCHC 32.1 L RDW 15.5 H Plt Count 428 H D MPV 10.0 Neut % (Auto) 46.2 L Lymph % (Auto) 46.8 H [place] % (Auto) 4.9 Eos % (Auto) 1.3 Baso % (Auto) 0.8 Neut # (Auto) 10.3 H Lymph # (Auto) 10.5 H [place] # (Auto) 1.1 H Eos # (Auto) 0.3 Baso # (Auto) 0.2 Neutrophils % (Manual) Band Neutrophils % Lymphocytes % (Manual) Reactive Lymphs % Monocytes % (Manual) Differential Comment Platelet Estimate Large Platelets Anisocytosis (manual) Ovalocytes PT 12.3 H INR 1.1 APTT 34 Fibrinogen Puncture Site pCO2 pO2 HCO3 ABG pH ABG Total CO2 ABG O2 Saturation ABG Base Excess ABG Hemoglobin ABG Carboxyhemoglobin POC ABG HHb (Measured) ABG Methemoglobin Leobardo Test ABG Potassium A-a O2 Difference Respiratory Index Hgb O2 Saturation Glucose Lactate Vent Mode Mechanical Rate FiO2 Tidal Volume PEEP Crit Value Called To Crit Value Called By Crit Value Read Back Blood Gas Notified Time Sodium Potassium Chloride Carbon Dioxide Anion Gap BUN Creatinine Est GFR ( Amer) Est GFR (Non-Af Amer) POC Glucose (mg/dL) 155 H Random Glucose Lactic Acid Calcium Phosphorus Magnesium Total Bilirubin AST ALT Alkaline Phosphatase Ammonia Troponin I NT-Pro-B Natriuret Pep Total Protein Albumin Globulin Albumin/Globulin Ratio Arterial Blood Potassium Salicylates Urine Opiates Screen Urine Methadone Screen Acetaminophen Ur Barbiturates Screen Ur Phencyclidine Scrn Ur Amphetamines Screen U Benzodiazepines Scrn U Oth Cocaine Metabols U Cannabinoids Screen Alcohol, Quantitative Blood Type Antibody Screen 07/16/18 07/16/18 07/16/18 20:57 20:57 21:21 WBC RBC Hgb Hct MCV MCH MCHC RDW Plt Count MPV Neut % (Auto) Lymph % (Auto) [place] % (Auto) Eos % (Auto) Baso % (Auto) Neut # (Auto) Lymph # (Auto) [place] # (Auto) Eos # (Auto) Baso # (Auto) Neutrophils % (Manual) Band Neutrophils % Lymphocytes % (Manual) Reactive Lymphs % Monocytes % (Manual) Differential Comment Platelet Estimate Large Platelets Anisocytosis (manual) Ovalocytes PT INR APTT Fibrinogen Puncture Site pCO2 pO2 HCO3 ABG pH ABG Total CO2 ABG O2 Saturation ABG Base Excess ABG Hemoglobin ABG Carboxyhemoglobin POC ABG HHb (Measured) ABG Methemoglobin Leobardo Test ABG Potassium A-a O2 Difference Respiratory Index Hgb O2 Saturation Glucose Lactate Vent Mode Mechanical Rate FiO2 Tidal Volume PEEP Crit Value Called To Crit Value Called By Crit Value Read Back Blood Gas Notified Time Sodium Potassium Chloride Carbon Dioxide Anion Gap BUN Creatinine Est GFR ( Amer) Est GFR (Non-Af Amer) POC Glucose (mg/dL) Random Glucose Lactic Acid Calcium Phosphorus Magnesium Total Bilirubin AST ALT Alkaline Phosphatase Ammonia Troponin I NT-Pro-B Natriuret Pep Total Protein Albumin Globulin Albumin/Globulin Ratio Arterial Blood Potassium Salicylates < 1.0 Urine Opiates Screen Negative Urine Methadone Screen Negative Acetaminophen < 10.0 L Ur Barbiturates Screen Negative Ur Phencyclidine Scrn Negative Ur Amphetamines Screen Negative U Benzodiazepines Scrn Negative U Oth Cocaine Metabols Negative U Cannabinoids Screen Negative Alcohol, Quantitative Blood Type A POSITIVE Antibody Screen Negative 07/16/18 07/16/18 07/16/18 21:43 21:43 21:43 WBC RBC Hgb Hct MCV MCH MCHC RDW Plt Count MPV Neut % (Auto) Lymph % (Auto) [place] % (Auto) Eos % (Auto) Baso % (Auto) Neut # (Auto) Lymph # (Auto) [place] # (Auto) Eos # (Auto) Baso # (Auto) Neutrophils % (Manual) Band Neutrophils % Lymphocytes % (Manual) Reactive Lymphs % Monocytes % (Manual) Differential Comment Platelet Estimate Large Platelets Anisocytosis (manual) Ovalocytes PT INR APTT Fibrinogen Puncture Site pCO2 pO2 HCO3 ABG pH ABG Total CO2 ABG O2 Saturation ABG Base Excess ABG Hemoglobin ABG Carboxyhemoglobin POC ABG HHb (Measured) ABG Methemoglobin Leobardo Test ABG Potassium A-a O2 Difference Respiratory Index Hgb O2 Saturation Glucose Lactate Vent Mode Mechanical Rate FiO2 Tidal Volume PEEP Crit Value Called To Crit Value Called By Crit Value Read Back Blood Gas Notified Time Sodium 138 Potassium 2.9 L Chloride 108 H Carbon Dioxide 21 L Anion Gap 12 BUN 20 H Creatinine 0.8 Est GFR ( Amer) > 60 Est GFR (Non-Af Amer) > 60 POC Glucose (mg/dL) Random Glucose 147 H D Lactic Acid 1.8 Calcium 8.6 Phosphorus 4.2 Magnesium 1.8 Total Bilirubin 0.3 AST 21 ALT 13 Alkaline Phosphatase 72 Ammonia < 9 L Troponin I 0.0400 NT-Pro-B Natriuret Pep 296 Total Protein 5.9 L Albumin 3.3 L Globulin 2.6 Albumin/Globulin Ratio 1.2 Arterial Blood Potassium Salicylates Urine Opiates Screen Urine Methadone Screen Acetaminophen Ur Barbiturates Screen Ur Phencyclidine Scrn Ur Amphetamines Screen U Benzodiazepines Scrn U Oth Cocaine Metabols U Cannabinoids Screen Alcohol, Quantitative < 10 Blood Type Antibody Screen 07/16/18 07/16/18 07/17/18 21:46 22:56 02:19 WBC RBC Hgb Hct MCV MCH MCHC RDW Plt Count MPV Neut % (Auto) Lymph % (Auto) [place] % (Auto) Eos % (Auto) Baso % (Auto) Neut # (Auto) Lymph # (Auto) [place] # (Auto) Eos # (Auto) Baso # (Auto) Neutrophils % (Manual) Band Neutrophils % Lymphocytes % (Manual) Reactive Lymphs % Monocytes % (Manual) Differential Comment Platelet Estimate Large Platelets Anisocytosis (manual) Ovalocytes PT INR APTT Fibrinogen 221 Puncture Site Rra pCO2 33 L pO2 294 H HCO3 22.2 ABG pH 7.40 ABG Total CO2 21.4 L ABG O2 Saturation 100.2 H ABG Base Excess -3.6 L ABG Hemoglobin ABG Carboxyhemoglobin POC ABG HHb (Measured) ABG Methemoglobin Leobardo Test Na ABG Potassium 2.4 L* A-a O2 Difference 378.0 Respiratory Index 1.3 Hgb O2 Saturation Glucose 141 H Lactate 1.6 Vent Mode Prvc Mechanical Rate 12 FiO2 100.0 Tidal Volume 600 PEEP 5 Crit Value Called To Funmilayo gray rn Crit Value Called By Lendl Crit Value Read Back Y Blood Gas Notified Time 2149 Sodium 140.0 Potassium Chloride 112.0 H Carbon Dioxide Anion Gap BUN Creatinine Est GFR ( Amer) Est GFR (Non-Af Amer) POC Glucose (mg/dL) 139 H Random Glucose Lactic Acid Calcium Phosphorus Magnesium Total Bilirubin AST ALT Alkaline Phosphatase Ammonia Troponin I NT-Pro-B Natriuret Pep Total Protein Albumin Globulin Albumin/Globulin Ratio Arterial Blood Potassium 2.4 L* Salicylates Urine Opiates Screen Urine Methadone Screen Acetaminophen Ur Barbiturates Screen Ur Phencyclidine Scrn Ur Amphetamines Screen U Benzodiazepines Scrn U Oth Cocaine Metabols U Cannabinoids Screen Alcohol, Quantitative Blood Type Antibody Screen 07/17/18 07/17/18 07/17/18 05:14 06:03 07:11 WBC RBC Hgb Hct MCV MCH MCHC RDW Plt Count MPV Neut % (Auto) Lymph % (Auto) [place] % (Auto) Eos % (Auto) Baso % (Auto) Neut # (Auto) Lymph # (Auto) [place] # (Auto) Eos # (Auto) Baso # (Auto) Neutrophils % (Manual) Band Neutrophils % Lymphocytes % (Manual) Reactive Lymphs % Monocytes % (Manual) Differential Comment Platelet Estimate Large Platelets Anisocytosis (manual) Ovalocytes PT 12.0 INR 1.1 APTT 34 Fibrinogen 318 Puncture Site Rr pCO2 35 pO2 221 H HCO3 20.6 L ABG pH 7.35 ABG Total CO2 20.4 L ABG O2 Saturation 100.2 H ABG Base Excess -5.6 L ABG Hemoglobin 13.6 ABG Carboxyhemoglobin 1.4 POC ABG HHb (Measured) -0.2 L ABG Methemoglobin 0.5 Leobardo Test Pos ABG Potassium A-a O2 Difference 92.0 Respiratory Index 0.4 Hgb O2 Saturation 98.2 H Glucose Lactate Vent Mode Prvc Mechanical Rate 12 FiO2 50.0 Tidal Volume 500 PEEP 5 Crit Value Called To Crit Value Called By Crit Value Read Back Blood Gas Notified Time Sodium Potassium Chloride Carbon Dioxide Anion Gap BUN Creatinine Est GFR ( Amer) Est GFR (Non-Af Amer) POC Glucose (mg/dL) 146 H Random Glucose Lactic Acid Calcium Phosphorus Magnesium Total Bilirubin AST ALT Alkaline Phosphatase Ammonia Troponin I NT-Pro-B Natriuret Pep Total Protein Albumin Globulin Albumin/Globulin Ratio Arterial Blood Potassium Salicylates Urine Opiates Screen Urine Methadone Screen Acetaminophen Ur Barbiturates Screen Ur Phencyclidine Scrn Ur Amphetamines Screen U Benzodiazepines Scrn U Oth Cocaine Metabols U Cannabinoids Screen Alcohol, Quantitative Blood Type Antibody Screen 07/17/18 07/17/18 07/17/18 07:11 07:11 07:15 WBC 19.2 H RBC 5.00 Hgb 13.2 D Hct 40.4 MCV 80.8 L MCH 26.4 L MCHC 32.6 L RDW 15.4 H Plt Count 291 D MPV 10.1 Neut % (Auto) 88.9 H Lymph % (Auto) 6.3 L [place] % (Auto) 4.6 Eos % (Auto) 0.0 Baso % (Auto) 0.2 Neut # (Auto) 17.1 H Lymph # (Auto) 1.2 [place] # (Auto) 0.9 H Eos # (Auto) 0.0 Baso # (Auto) 0.0 Neutrophils % (Manual) 82 H Band Neutrophils % 8 H Lymphocytes % (Manual) 7 L Reactive Lymphs % 1 H Monocytes % (Manual) 2 Differential Comment Platelet Estimate Normal Large Platelets Present Anisocytosis (manual) Slight Ovalocytes Slight PT INR APTT Fibrinogen Puncture Site pCO2 pO2 HCO3 ABG pH ABG Total CO2 ABG O2 Saturation ABG Base Excess ABG Hemoglobin ABG Carboxyhemoglobin POC ABG HHb (Measured) ABG Methemoglobin Leobardo Test ABG Potassium A-a O2 Difference Respiratory Index Hgb O2 Saturation Glucose Lactate Vent Mode Mechanical Rate FiO2 Tidal Volume PEEP Crit Value Called To Crit Value Called By Crit Value Read Back Blood Gas Notified Time Sodium 137 Potassium 6.5 H* D Chloride 111 H Carbon Dioxide 20 L Anion Gap 12 BUN 24 H Creatinine 1.3 H Est GFR ( Amer) 52 Est GFR (Non-Af Amer) 43 POC Glucose (mg/dL) Random Glucose 152 H Lactic Acid 1.6 Calcium 9.3 Phosphorus 2.5 Magnesium 2.0 Total Bilirubin 0.5 AST 62 H D ALT 8 L D Alkaline Phosphatase 88 Ammonia Troponin I NT-Pro-B Natriuret Pep Total Protein 6.9 Albumin 3.8 Globulin 3.1 Albumin/Globulin Ratio 1.2 Arterial Blood Potassium Salicylates Urine Opiates Screen Urine Methadone Screen Acetaminophen Ur Barbiturates Screen Ur Phencyclidine Scrn Ur Amphetamines Screen U Benzodiazepines Scrn U Oth Cocaine Metabols U Cannabinoids Screen Alcohol, Quantitative Blood Type Antibody Screen 07/17/18 07/17/18 11:10 11:39 WBC RBC Hgb Hct MCV MCH MCHC RDW Plt Count MPV Neut % (Auto) Lymph % (Auto) [place] % (Auto) Eos % (Auto) Baso % (Auto) Neut # (Auto) Lymph # (Auto) [place] # (Auto) Eos # (Auto) Baso # (Auto) Neutrophils % (Manual) Band Neutrophils % Lymphocytes % (Manual) Reactive Lymphs % Monocytes % (Manual) Differential Comment Platelet Estimate Large Platelets Anisocytosis (manual) Ovalocytes PT INR APTT Fibrinogen Puncture Site Rra pCO2 22 L pO2 420 H HCO3 17.6 L ABG pH 7.39 ABG Total CO2 14.0 L ABG O2 Saturation 100.1 H ABG Base Excess -9.5 L ABG Hemoglobin ABG Carboxyhemoglobin POC ABG HHb (Measured) ABG Methemoglobin Leobardo Test Po ABG Potassium 4.3 A-a O2 Difference 266.0 Respiratory Index 0.6 Hgb O2 Saturation Glucose 201 H Lactate 2.6 H Vent Mode Prvc Mechanical Rate FiO2 100.0 Tidal Volume 500 PEEP 5 Crit Value Called To Crit Value Called By Crit Value Read Back Blood Gas Notified Time Sodium 141.0 Potassium Chloride 111.0 H Carbon Dioxide Anion Gap BUN Creatinine Est GFR ( Amer) Est GFR (Non-Af Amer) POC Glucose (mg/dL) 222 H Random Glucose Lactic Acid Calcium Phosphorus Magnesium Total Bilirubin AST ALT Alkaline Phosphatase Ammonia Troponin I NT-Pro-B Natriuret Pep Total Protein Albumin Globulin Albumin/Globulin Ratio Arterial Blood Potassium 4.3 Salicylates Urine Opiates Screen Urine Methadone Screen Acetaminophen Ur Barbiturates Screen Ur Phencyclidine Scrn Ur Amphetamines Screen U Benzodiazepines Scrn U Oth Cocaine Metabols U Cannabinoids Screen Alcohol, Quantitative Blood Type Antibody Screen Assessment & Plan - Assessment and Plan (Free Text) Assessment: 52yo F with unknown PMHx in critical condition in ICU s/p intubation with imaging showing SAH, subdural hemorrhage, and brain herniation. Plan: Anoxic Brain 2/2 intraparenchymal hemorrhage, subarchnoid hemorrhage, subdural hemorrhages Imaging reviewed: CXR: No active pulmonary disease. Head CT without contrast: Large intraparenchymal hemorrhage at the left cerebral hemisphere involving the left basal ganglia left centrum semiovale coronal radiata left temporal and frontal lobes. Large mass effect on the lateral ventricles and approximately 8 millimeter [id number] midline shift. Focal hemorrhage noted around the pontine and basilar cistern. Foci of subarachnoid hemorrhage and possible small amount of subdural hemorrhage along the tentorial leaflets. Diffuse effacement of the brain sulci suggestive of increased intracranial pressure . Suspicious for transtentorial and uncal brain herniation. repeat Head CT with contrast: Again noted is large intraparenchymal hemorrhage at the left cerebral hemisphere surrounding with edema and resulting in mass effect and approximately 8 millimeter [id number] midline shift. Subarachnoid hemorrhage and small subdural hemorrhage along tentorial leaflets. Diffuse effacement of the brain sulci suggestive of increased intracranial pressure. F indings are again suspicious for transtentorial and uncal brain herniation. 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 Complete occlusion of the right V3 and V4 segments and the left V2, V3 and V4 segments. - f/u video EEG - patient is likely brain from anoxia at this point - unable to do apnea test due to acidosis - per Neurosurgery, not a good surgical candidate - per family, would like to be transferred to higher level of care d/w Dr. Dannielle Yanes PGY-1 - Date & Time Date: 07/17/18 Time: 09:30
[2018-07-17 11:58] LABS: ABG ALLEN TEST PO; ARTERIAL BLOOD GAS HCO3 16.3 mmol/L (21-28); ARTERIAL BLOOD GAS O2 SAT 100.3 % (95-98); ARTERIAL BLOOD GAS PCO2 33 mm/Hg (35-45); ARTERIAL BLOOD GAS PH 7.26 (7.35-7.45); ARTERIAL BLOOD GAS PO2 462 mm/Hg (80-100); ARTERIAL BLOOD GAS TCO2 15.8 mmol/L (22-28)
[2018-07-17] MEDS ORDERED: Sodium Bicarbonate (8.4%) 50 mEq Vial IVP ONE ×3 (12:04→12:45)
[2018-07-17] MEDS ORDERED: Sodium Bicarbonate (8.4%) 50 Meq Syringe IVP ONE (12:15)
--- NOTE | 2018-07-17 12:22 | RAD ---
Date of service: 07/17/2018 HISTORY: eval interval change COMPARISON: 07/16/2018 TECHNIQUE: 1 view obtained. FINDINGS: LUNGS: No active pulmonary disease. PLEURA: No significant pleural effusion identified, no pneumothorax apparent. CARDIOVASCULAR: No aortic atherosclerotic calcification present. Normal cardiac size. ET tube and NG tube noted. NG tube new since prior examination. ET tube unchanged. OSSEOUS STRUCTURES: No significant abnormalities. VISUALIZED UPPER ABDOMEN: Normal. OTHER FINDINGS: None. IMPRESSION: No active disease.
[2018-07-17 13:47] LABS: ABG ALLEN TEST PO; ARTERIAL BLOOD GAS HCO3 21.6 mmol/L (21-28); ARTERIAL BLOOD GAS O2 SAT 100.3 % (95-98); ARTERIAL BLOOD GAS PCO2 39 mm/Hg (35-45); ARTERIAL BLOOD GAS PH 7.34 (7.35-7.45); ARTERIAL BLOOD GAS PO2 381 mm/Hg (80-100); ARTERIAL BLOOD GAS TCO2 22.2 mmol/L (22-28)
[2018-07-17 14:13] LABS: ABG ALLEN TEST PO; ARTERIAL BLOOD GAS HCO3 21.4 mmol/L (21-28); ARTERIAL BLOOD GAS O2 SAT 99.9 % (95-98); ARTERIAL BLOOD GAS PCO2 65 mm/Hg (35-45); ARTERIAL BLOOD GAS PH 7.19 (7.35-7.45); ARTERIAL BLOOD GAS PO2 250 mm/Hg (80-100); ARTERIAL BLOOD GAS TCO2 26.8 mmol/L (22-28)
--- NOTE | 2018-07-17 14:32 | CP.PCM.PRO ---
<Ryan Flood - Last Filed: 07/17/18 14:55> Pronouncement of Note - Clinical Findings Physical Exam: No Response Verbal/Painful Stimuli, Absent Peripheral Pulses{Carotid & Femoral}, Absent Heart & Breath Sounds, No Pupillary Light Reflex, Pupils Fixed & Dilated, Absence of Vital Signs - Pronouncement Time Time of Pronouncement of : 14:15 - Notifications Pronouncement Notifications: Family Notified Cell Biology Scientist Notified: Yes - [place] [id number] <Lukas Larson - Last Filed: 07/17/18 19:23> Attending/Attestation - Attestation I have personally seen and examined this patient.: Yes I have fully participated in the care of the patient.: Yes I have reviewed all pertinent clinical information: Yes
[2018-07-17] MEDS ORDERED: Dexamethasone 4 mg/1 ml IVP SCH (18:00)
--- NOTE | 2018-07-17 19:31 | PCM.PROC ---
Procedures Attestation:: I certify that I have explained the specified Operation(s) or Procedure(s), risks, benefits and reasonable alternatives to the Patient and/or other person responsible. The opportunity was given to ask questions and all questions answered - Central Line Placement Triple Lumen Catheter Aseptic technique was employed throughout the procedure: Hand Hygiene done prior to procedure, Full sterile barriers (mask, hair cover, sterile gown, sterile gloves), Full body sterile drape, Chloraprep Antiseptic: 2 minute prep for Femoral CVP Time Out Performed: Yes Pt. Placed on Pulse Ox Monitor: Yes Central Line Prep: Chlorhexidine-Alcohol Combination Local Anesthesia Used: Lidocaine 1% Ultrasound Used for Placement: Yes Central Line Lumen Inserted: triple Central Line Length: 20 cm Post Procedure: Sutured in Place, Good Blood Return, All Ports Aspirated, Flushed, Capped, Sterile Dressing Applied Secured by: Suture Post procedure dressing: Clear vapor permeable Post Procedure X-Ray: No Patient Tolerated Procedure: Well, Other (very difficult placement, multiple sticks required, guidewire kept kinking)
--- NOTE | 2018-07-17 19:33 | PCM.PROC ---
Procedures Attestation:: I certify that I have explained the specified Operation(s) or Procedure(s), risks, benefits and reasonable alternatives to the Patient and/or other person responsible. The opportunity was given to ask questions and all questions answered - Arterial Line Right Axillary Aseptic technique was employed throughout the procedure: Hand Hygiene done prior to procedure, Full sterile barriers (mask, hair cover, sterile gown, sterile gloves), Full body sterile drape, Chloraprep Antiseptic: 2 minute prep for Femoral Time Out Performed: Yes Pt. placed on Pulse Ox Monitor: Yes Central Line Prep: Chlorhexidine-Alcohol Combination Local Anesthesia Used: Lidocaine 1% Ultrasound Used for Placement: Yes Gauge (Size): 20 gauge Technique Used: Guide Wire Technique Secured by: Suture Post procedure dressing: Clear vapor permeable, Chlorhexidine disc (Biopatch) Patient Tolerated Procedure: no complications
[2018-07-17] MEDS ORDERED: (Novolin R) Insulin Human Regular 100 units/ml vial IVP ONE ×2 (20:15→22:15)
[2018-07-17] MEDS ORDERED: MethylPREDNISolone 40 mg Vial IVP STA (20:15)
[2018-07-17] MEDS ORDERED: Levothyroxine 100 mcg (0.1 mg) Inj IVP STA (20:29)
[2018-07-17] MEDS ORDERED: Sodium Bicarbonate 8.4% 75 MEQ in Dextrose 5% In Water 1,000 ML IV SCH (20:50)
[2018-07-17] MEDS ORDERED: METHYLPREDNISOLONE IVPB ONE (21:00)
[2018-07-17] MEDS ORDERED: SODIUM CHLORIDE 0.9% IVPB ONE (21:00)
[2018-07-17] MEDS ORDERED: Vasopressin 20 Units/ml Inj IV ONE (21:00)
[2018-07-17 21:42] LABS: ARTERIAL BLOOD GAS HCO3 21.3 mmol/L (21-28); ARTERIAL BLOOD GAS HEMOGLOBIN 11.2 g/dL (11.7-17.4); ARTERIAL BLOOD GAS O2 SAT 99.8 % (95-98); ARTERIAL BLOOD GAS PCO2 37 mm/Hg (35-45); ARTERIAL BLOOD GAS PH 7.35 (7.35-7.45); ARTERIAL BLOOD GAS PO2 246 mm/Hg (80-100); ARTERIAL BLOOD GAS TCO2 21.5 mmol/L (22-28)
[2018-07-17 21:51] LABS: BASO % 0.1 % (0.0-2.0); HEMOGLOBIN 12.5 g/dL (11.0-16.0); LYMPH # 0.7 K/uL (1.0-4.3); LYMPH % 3.3 % (20.0-40.0); MEAN CELL VOLUME 81.2 fL (81.0-99.0); MEAN CORPUSCULAR HEMOGLOBIN 26.7 pg (27.0-31.0); MEAN CORPUSCULAR HGB CONC 32.9 g/dL (33.0-37.0); MEAN PLATELET VOLUME 10.1 fL (7.2-11.7); MONO # 0.6 K/uL (0.0-0.8); MONO % 2.8 % (0.0-10.0); NEUT # 19.9 K/uL (1.8-7.0); NEUT % 93.8 % (50.0-75.0); PLATELET COUNT 245 K/uL (130-400); RBC 4.68 Mil/uL (3.80-5.20); RED CELL DISTRIBUTION WIDTH 15.8 % (11.5-14.5); WHITE BLOOD COUNT 21.2 K/uL (4.8-10.8)
[2018-07-17 21:56] LABS: URINE BILIRUBIN NEGATIVE (NEGATIVE); URINE BLOOD 3+ (NEGATIVE); URINE CLARITY Hazy (Clear); URINE COLOR Yellow (YELLOW); URINE GLUCOSE (UA) 1+ mg/dL (Normal); URINE LEUKOCYTE ESTERASE NEG Leu/uL (Negative); URINE PROTEIN 2+ mg/dL (NEGATIVE); URINE UROBILINOGEN NORMAL mg/dL (0.2-1.0)
[2018-07-17 22:00] LABS: INR 1.2
[2018-07-17] MEDS: Vasopressin 40 UNITS in Dextrose 5% In Water 40 ML IV SCH (22:00)
[2018-07-17 22:14] LABS: ALB/GLOB RATIO 1.1 (1.0-2.1); ALBUMIN 3.1 g/dL (3.5-5.0); BILIRUBIN,DIRECT 0.2 mg/dL (0.0-0.4); CALCIUM 9.5 mg/dl (8.6-10.4)
[2018-07-17 22:22] LABS: CK-MB 22.6 ng/mL (0.0-3.38); TROPONIN I 2.65 ng/mL (0.00-0.120)
[2018-07-17 22:26] LABS: BANDS 3 % (0-2); LYMPHOCYTE 3 % (20-40); MONOCYTE 3 % (0-10); NEUTROPHIL 91 % (50-75); PLATELET ESTIMATE NORMAL (NORMAL); TOTAL CELLS COUNTED 100
[2018-07-18] MEDS: Albuterol-Ipratrop 3 mg / 0.5 (3 ml) UD INH SCH ×3 (01:00→13:03)
[2018-07-18] MEDS: Aritificial Tears (15ml) OU SCH ×6 (01:00→19:52)
[2018-07-18 03:58] LABS: ARTERIAL BLOOD GAS HCO3 23.7 mmol/L (21-28); ARTERIAL BLOOD GAS HEMOGLOBIN 11.7 g/dL (11.7-17.4); ARTERIAL BLOOD GAS O2 SAT 99.7 % (95-98); ARTERIAL BLOOD GAS PCO2 45 mm/Hg (35-45); ARTERIAL BLOOD GAS PH 7.34 (7.35-7.45); ARTERIAL BLOOD GAS PO2 136 mm/Hg (80-100); ARTERIAL BLOOD GAS TCO2 25.7 mmol/L (22-28)
[2018-07-18 04:08] LABS: BASO % 0.1 % (0.0-2.0); HEMOGLOBIN 11.8 g/dL (11.0-16.0); LYMPH # 0.6 K/uL (1.0-4.3); LYMPH % 2.4 % (20.0-40.0); MEAN CELL VOLUME 80.9 fL (81.0-99.0); MEAN CORPUSCULAR HEMOGLOBIN 25.5 pg (27.0-31.0); MEAN CORPUSCULAR HGB CONC 31.5 g/dL (33.0-37.0); MEAN PLATELET VOLUME 9.9 fL (7.2-11.7); MONO # 0.3 K/uL (0.0-0.8); MONO % 1.3 % (0.0-10.0); NEUT # 25.4 K/uL (1.8-7.0); NEUT % 96.2 % (50.0-75.0); NRBC % 0.1 % (0.0-2.0); PLATELET COUNT 302 K/uL (130-400); RBC 4.62 Mil/uL (3.80-5.20); RED CELL DISTRIBUTION WIDTH 16.1 % (11.5-14.5); WHITE BLOOD COUNT 26.4 K/uL (4.8-10.8)
[2018-07-18 04:25] LABS: INR 1.3; PROTHROMBIN TIME 13.7 SECONDS (9.7-12.2)
[2018-07-18 05:07] LABS: ALBUMIN 2.9 g/dL (3.5-5.0); BILIRUBIN,DIRECT 0.2 mg/dL (0.0-0.4); CALCIUM 9.1 mg/dl (8.6-10.4); CK-MB 16.1 ng/mL (0.0-3.38); TROPONIN I 2.4 ng/mL (0.00-0.120)
[2018-07-18] MEDS ORDERED: MethylPREDNISolone 40 mg Vial IVP SCH (06:00)
[2018-07-18] MEDS: SODIUM CHLORIDE 0.9% IVPB SCH ×3 (06:15→21:04)
[2018-07-18] MEDS: METHYLPREDNISOLONE IVPB SCH ×3 (06:15→21:04)
[2018-07-18] MEDS ORDERED: Glucagon Recombinant 1 mg Inj IM PRN (08:18)
[2018-07-18] MEDS ORDERED: Dextrose 50% SYRINGE Inj (50 ml) IV PRN (08:18)
[2018-07-18 08:21] LABS: LYMPHOCYTE 3 % (20-40); MONOCYTE 1 % (0-10); NEUTROPHIL 96 % (50-75); TOTAL CELLS COUNTED 100
[2018-07-18 08:22] LABS: ANISOCYTOSIS SLIGHT; LARGE PLATELETS PRESENT; PLATELET CLUMPS PRESENT; PLATELET ESTIMATE NORMAL (NORMAL)
[2018-07-18] MEDS: Lactated Ringer's 1,000 ML IV SCH (08:38)
[2018-07-18] MEDS: (Novolin R) Insulin Human Regular 100 units/ml vial SC SCH ×8 (08:39→22:00)
[2018-07-18 09:57] LABS: BASO % 0.1 % (0.0-2.0); HEMOGLOBIN 10.9 g/dL (11.0-16.0); LYMPH # 0.6 K/uL (1.0-4.3); MEAN CELL VOLUME 82.6 fL (81.0-99.0); MEAN CORPUSCULAR HEMOGLOBIN 25.9 pg (27.0-31.0); MEAN CORPUSCULAR HGB CONC 31.4 g/dL (33.0-37.0); MEAN PLATELET VOLUME 10.1 fL (7.2-11.7); MONO # 0.5 K/uL (0.0-0.8); MONO % 2.5 % (0.0-10.0); NEUT % 94.4 % (50.0-75.0); NRBC % 0.1 % (0.0-2.0); PLATELET COUNT 219 K/uL (130-400); WHITE BLOOD COUNT 19.1 K/uL (4.8-10.8)
[2018-07-18] MEDS ORDERED: Levothyroxine 500 mcg (0.5 mg) Inj IV SCH (10:00)
[2018-07-18 10:05] LABS: INR 1.3; PROTHROMBIN TIME 14.6 SECONDS (9.7-12.2)
[2018-07-18 10:23] LABS: ALBUMIN 2.8 g/dL (3.5-5.0); BILIRUBIN,DIRECT 0.1 mg/dL (0.0-0.4); CALCIUM 9.1 mg/dl (8.6-10.4); TROPONIN I 2.08 ng/mL (0.00-0.120)
[2018-07-18] MEDS: cefTRIAXone 2 GM in Sodium Chloride 0.9% 100 ML IVPB SCH ×2 (10:50→22:49)
[2018-07-18 11:20] LABS: SQUAMOUS EPITHIAL < 1 /hpf (0-5); URINE BILIRUBIN NEGATIVE (NEGATIVE); URINE BLOOD 2+ (NEGATIVE); URINE CLARITY Hazy (Clear); URINE COLOR Yellow (YELLOW); URINE GLUCOSE (UA) 1+ mg/dL (Normal); URINE LEUKOCYTE ESTERASE NEG Leu/uL (Negative); URINE PROTEIN 1+ mg/dL (NEGATIVE); URINE UROBILINOGEN NORMAL mg/dL (0.2-1.0)
[2018-07-18 11:29] LABS: BANDS 3 % (0-2); LYMPHOCYTE 3 % (20-40); MONOCYTE 1 % (0-10); NEUTROPHIL 93 % (50-75); PLATELET ESTIMATE NORMAL (NORMAL); TOTAL CELLS COUNTED 100
[2018-07-18 11:30] LABS: ANISOCYTOSIS SLIGHT; HYPOCHROMIC SLIGHT; OVALOCYTES SLIGHT; TEARDROP CELLS SLIGHT
--- NOTE | 2018-07-18 11:53 | RAD ---
Date of service: 07/18/2018 PROCEDURE: CHEST RADIOGRAPH, 1 VIEW HISTORY: Post Heimlich insertion COMPARISON: Comparison is made with the previous same-day study FINDINGS: LUNGS: Interval insertion of right-sided chest tube. Interval re-expansion of the right lung. Small opacities at the right lower lobe may be atelectasis. The ET tube is seen at appropriate position. PLEURA: Interval almost complete resolving of the previously seen right-sided pneumothorax. CARDIOVASCULAR: No aortic atherosclerotic calcification present. Normal. OSSEOUS STRUCTURES: No significant abnormalities. VISUALIZED UPPER ABDOMEN: There is NG tube seen extending to the abdomen. OTHER FINDINGS: None. IMPRESSION: Interval insertion of right-sided chest tube and almost complete resolving of the previously noted right-sided pneumothorax. Appropriate position of the support devices.
--- NOTE | 2018-07-18 11:57 | RAD ---
Date of service: 07/18/2018 HISTORY: on vent/for organ donation COMPARISON: Comparison is made with 07/17/2018 TECHNIQUE: 1 view obtained. FINDINGS: LUNGS: There is partial collapse of the right lung noted due to right-sided pneumothorax. Mild pulmonary vascular congestion. The ET tube is seen at appropriate position. PLEURA: There is approximately 25-30 percent right-sided pneumothorax. CARDIOVASCULAR: No aortic atherosclerotic calcification present. Normal cardiac size. No pulmonary vascular congestion. OSSEOUS STRUCTURES: No significant abnormalities. VISUALIZED UPPER ABDOMEN: Normal. OTHER FINDINGS: None. IMPRESSION: Approximately 30 percent right-sided pneumothorax. The above findings were reported to the physician taking care of the patient in the ICU doctor Pearl at 11:45 a.m. on 07/18/2018
[2018-07-18 12:08] LABS: ARTERIAL BLOOD GAS HCO3 25.2 mmol/L (21-28); ARTERIAL BLOOD GAS HEMOGLOBIN 10.7 g/dL (11.7-17.4); ARTERIAL BLOOD GAS O2 SAT 100.2 % (95-98); ARTERIAL BLOOD GAS PCO2 42 mm/Hg (35-45); ARTERIAL BLOOD GAS PH 7.39 (7.35-7.45); ARTERIAL BLOOD GAS PO2 414 mm/Hg (80-100); ARTERIAL BLOOD GAS TCO2 26.7 mmol/L (22-28)
[2018-07-18] MEDS: Vancomycin 1 gm/NS 200 ml 1 GM/200 ML BAG IVPB SCH ×2 (12:16→23:28)
--- NOTE | 2018-07-18 12:20 | CARD ---
APPROVED REPORT Date of service: 07/18/2018 Left ventricular size and function are normal, with hyperdynamic LV systolic function. Visual estimation of LV EF is 75%. Normal wall motion. There is moderately diffuse increased wall thickness, with localized, disproportionate increased basal-anteroseptal thickness of 2.5 cm diameter No evidence of LVOT outflow obstruction, KIARA etc. Type I diastolic dysfunction. Normal right ventricular sisze and function. Normal right atrium. Mildly dilated left atrium. Normal trileaflet aortic valve and no regurgitation. Normal mitral valve and no regurgitation. Normal pulmonic valve. Normal tricuspid valve and mild tricuspid regurgitation. Normal IVC. <Conclusion> As above.
[2018-07-18] MEDS: Magnesium Sulfate 1 gm in D5W 1 GM/100 ML BAG IVPB SCH ×2 (12:49→13:47)
--- NOTE | 2018-07-18 15:28 | CT ---
Date of service: 07/18/2018 PROCEDURE: CT Chest, Abdomen and Pelvis without intravenous contrast HISTORY: organ donation evaluation COMPARISON: None available. TECHNIQUE: Radiation dose: Total exam DLP = 1902.76 mGy-cm. This CT exam was performed using one or more of the following dose reduction techniques: Automated exposure control, adjustment of the mA and/or kV according to patient size, and/or use of iterative reconstruction technique. FINDINGS: CT CHEST WITHOUT CONTRAST: LUNGS: There is partial collapse of the right lung. There are airspace consolidation at the lower lobes larger on the right likely represent atelectasis. Mild to moderate pulmonary congestion noted in the right lung. The ET tube is seen at appropriate position. The NG tube seen extending to the abdomen. MEDIASTINUM: The thoracic aorta is mildly ectatic and tortuous. The main pulmonary artery is mildly enlarged. LYMPH NODES: Unremarkable. PLEURA: There is approximately 60 percent right-sided pneumothorax. BONES: Unremarkable. OTHER FINDINGS: None. CT ABDOMEN AND PELVIS: LIVER: Unremarkable. No gross lesion or ductal dilatation. GALLBLADDER AND BILE DUCTS: Unremarkable. PANCREAS: Unremarkable. No gross lesion or ductal dilatation. SPLEEN: Unremarkable. ADRENALS: Unremarkable. No mass. KIDNEYS AND URETERS: The kidneys are symmetrical in size and shape. There is bilateral perinephric stranding and small amount of fluid more prominent on the right side. VASCULATURE: No aortic atherosclerotic calcification or mural plaque present. Unremarkable. No aortic aneurysm. BOWEL: Unremarkable. No obstruction. No gross mural thickening. There is a small bowel loops extending through the umbilical hernia without definite evidence of high-grade bowel obstruction. APPENDIX: No evidence of appendicitis. PERITONEUM: There is a trace amount of free fluid in the pelvis. There is mild mesenteric stranding in the mid and upper abdomen noted. LYMPH NODES: Unremarkable. No enlarged lymph nodes. BLADDER: The bladder is collapsed around the Basurto catheter. REPRODUCTIVE: Unremarkable. BONES: No acute fracture. OTHER FINDINGS: None. IMPRESSION: Right-sided 60 percent pneumothorax associated with partial collapse of the right lung. There is consolidation at the lung bases likely atelectasis. Perinephric fluid noted bilaterally slightly more prominent on the right. No evidence of hydronephrosis. Umbilical hernia contains small segment of small bowel loops without evidence of bowel obstruction or incarceration. Small bilateral pleural effusion. Preliminary report was submitted by [facility] Radiology contains concordant findings.
[2018-07-18 16:02] LABS: HEMOGLOBIN 10.6 g/dL (11.0-16.0); LYMPH # 0.8 K/uL (1.0-4.3); LYMPH % 3.5 % (20.0-40.0); MEAN CELL VOLUME 81.5 fL (81.0-99.0); MEAN CORPUSCULAR HEMOGLOBIN 25.9 pg (27.0-31.0); MEAN CORPUSCULAR HGB CONC 31.8 g/dL (33.0-37.0); MEAN PLATELET VOLUME 10.2 fL (7.2-11.7); MONO # 0.8 K/uL (0.0-0.8); MONO % 3.4 % (0.0-10.0); NEUT # 20.6 K/uL (1.8-7.0); NEUT % 93.1 % (50.0-75.0); PLATELET COUNT 202 K/uL (130-400); RBC 4.08 Mil/uL (3.80-5.20); RED CELL DISTRIBUTION WIDTH 15.9 % (11.5-14.5); WHITE BLOOD COUNT 22.1 K/uL (4.8-10.8)
[2018-07-18 16:10] LABS: INR 1.3; PROTHROMBIN TIME 14.1 SECONDS (9.7-12.2)
[2018-07-18 16:15] LABS: ALBUMIN 2.6 g/dL (3.5-5.0); ALT/SGPT 22 U/L (9-52); AMYLASE 39 U/L (30-110); AST/SGOT 55 U/L (14-36); BLOOD UREA NITROGEN 25 mg/dL (7-17); CALCIUM 9.1 mg/dl (8.6-10.4); GFR NON-AFRICAN AMERICAN 47; LIPASE 19 U/L (23-300)
[2018-07-18 16:27] LABS: ARTERIAL BLOOD GAS HCO3 24.6 mmol/L (21-28); ARTERIAL BLOOD GAS HEMOGLOBIN 10.3 g/dL (11.7-17.4); ARTERIAL BLOOD GAS O2 SAT 99.6 % (95-98); ARTERIAL BLOOD GAS PCO2 43 mm/Hg (35-45); ARTERIAL BLOOD GAS PH 7.37 (7.35-7.45); ARTERIAL BLOOD GAS PO2 423 mm/Hg (80-100); ARTERIAL BLOOD GAS TCO2 26.2 mmol/L (22-28)
[2018-07-18] MEDS ORDERED: Iodixanol 320 MG/ML 200 ML BOTTLE IV ONE (16:40)
--- NOTE | 2018-07-18 16:51 | RAD ---
Date of service: 07/18/2018 PROCEDURE: CHEST RADIOGRAPH, 1 VIEW HISTORY: Organ Donor COMPARISON: Comparison is made with the previous same-day exam FINDINGS: LUNGS: The ET tube is seen in place. There is new opacity at the right lung may represent atelectasis. PLEURA: Right-sided chest C tube is seen in place P CARDIOVASCULAR: No aortic atherosclerotic calcification present. Normal. OSSEOUS STRUCTURES: No significant abnormalities. VISUALIZED UPPER ABDOMEN: Normal. OTHER FINDINGS: None. IMPRESSION: Possible new segmental atelectasis in the right lung. Right-sided chest C tube is again seen in place.
--- NOTE | 2018-07-18 17:08 | PCM.PROC ---
Procedures Attestation:: I certify that I have explained the specified Operation(s) or Procedure(s), risks, benefits and reasonable alternatives to the Patient and/or other person responsible. The opportunity was given to ask questions and all questions answered - Chest Tube Chest Tube Location: Anterior Chest Right Chest Tube Procedure: Chlorhexidine Tube Sutured to Skin: No Sterile Dressing Applied: Yes Incision Made With: #10 blade Post Procedure: sutured to skin [place] of [place]: No Tube Drainage: none Post Procedure CXR?: Yes Patient Tolerated Procedure: Yes Progress: hemlich valve used. CXR shows re-expansion of lung.
[2018-07-18 17:43] LABS: VENOUS BLOOD GAS BASE EXCESS 0.6 mmol/L (0.0-2.0); VENOUS BLOOD GAS PCO2 52 mmHg (40-60); VENOUS BLOOD GAS PO2 54 mm/Hg (30-55); VENOUS BLOOD PH 7.33 (7.32-7.43)
[2018-07-18 17:46] LABS: LYMPHOCYTE 11 % (20-40); MONOCYTE 3 % (0-10); NEUTROPHIL 86 % (50-75); PLATELET ESTIMATE INCREASED (NORMAL); TOTAL CELLS COUNTED 100
[2018-07-18 17:47] LABS: GIANT PLATELETS PRESENT; LARGE PLATELETS PRESENT; PLATELET CLUMPS PRESENT
[2018-07-18 18:18] VITALS: RESP 10
[2018-07-18] MEDS: Vasopressin 40 UNITS in Dextrose 5% In Water 40 ML IV SCH (21:05)
[2018-07-18 21:23] VITALS: O2SAT 100
[2018-07-18 21:56] LABS: ARTERIAL BLOOD GAS HCO3 25.1 mmol/L (21-28); ARTERIAL BLOOD GAS O2 SAT 99.7 % (95-98); ARTERIAL BLOOD GAS PCO2 49 mm/Hg (35-45); ARTERIAL BLOOD GAS PH 7.34 (7.35-7.45); ARTERIAL BLOOD GAS PO2 135 mm/Hg (80-100); ARTERIAL BLOOD GAS TCO2 27.9 mmol/L (22-28)
[2018-07-18 22:11] LABS: HEMOGLOBIN 9.9 g/dL (11.0-16.0); LYMPH # 0.4 K/uL (1.0-4.3); LYMPH % 2.2 % (20.0-40.0); MEAN CELL VOLUME 81.3 fL (81.0-99.0); MEAN CORPUSCULAR HEMOGLOBIN 25.7 pg (27.0-31.0); MEAN CORPUSCULAR HGB CONC 31.6 g/dL (33.0-37.0); MONO # 0.7 K/uL (0.0-0.8); MONO % 3.3 % (0.0-10.0); NEUT # 18.9 K/uL (1.8-7.0); NEUT % 94.5 % (50.0-75.0); PLATELET COUNT 188 K/uL (130-400); RBC 3.85 Mil/uL (3.80-5.20)
[2018-07-18 22:13] LABS: LYMPHOCYTE 3 % (20-40); MONOCYTE 4 % (0-10); NEUTROPHIL 93 % (50-75); PLATELET ESTIMATE NORMAL (NORMAL); TOTAL CELLS COUNTED 100
[2018-07-18 22:19] LABS: INR 1.4; PROTHROMBIN TIME 14.9 SECONDS (9.7-12.2)
[2018-07-18 22:25] LABS: ALBUMIN 2.5 g/dL (3.5-5.0); ALT/SGPT 21 U/L (9-52); AMYLASE < 30 U/L (30-110); AST/SGOT 47 U/L (14-36); BILIRUBIN,DIRECT 0.1 mg/dL (0.0-0.4); BLOOD UREA NITROGEN 22 mg/dL (7-17); CALCIUM 9.1 mg/dl (8.6-10.4); GAMMA GLUTAMYL TRANSPEPTIDASE 11 U/L (8-78); GFR NON-AFRICAN AMERICAN 52; LIPASE 13 U/L (23-300)
[2018-07-18 22:38] LABS: CK-MB 12.4 ng/mL (0.0-3.38)
[2018-07-19] MEDS: Lactated Ringer's 1,000 ML IV SCH ×3 (00:01→12:00)
[2018-07-19] MEDS: (Novolin R) Insulin Human Regular 100 units/ml vial SC SCH ×6 (00:03→10:48)
[2018-07-19] MEDS: Albuterol-Ipratrop 3 mg / 0.5 (3 ml) UD INH SCH ×3 (02:45→13:33)
[2018-07-19 03:30] LABS: ARTERIAL BLOOD GAS HCO3 25.5 mmol/L (21-28); ARTERIAL BLOOD GAS O2 SAT 99.3 % (95-98); ARTERIAL BLOOD GAS PCO2 44 mm/Hg (35-45); ARTERIAL BLOOD GAS PH 7.38 (7.35-7.45); ARTERIAL BLOOD GAS PO2 173 mm/Hg (80-100); ARTERIAL BLOOD GAS TCO2 27.4 mmol/L (22-28)
[2018-07-19 03:46] LABS: HEMOGLOBIN 9.8 g/dL (11.0-16.0); LYMPH # 0.5 K/uL (1.0-4.3); LYMPH % 2.8 % (20.0-40.0); MEAN CORPUSCULAR HEMOGLOBIN 25.5 pg (27.0-31.0); MEAN CORPUSCULAR HGB CONC 31.2 g/dL (33.0-37.0); MEAN PLATELET VOLUME 10.1 fL (7.2-11.7); MONO # 0.7 K/uL (0.0-0.8); MONO % 3.6 % (0.0-10.0); NEUT # 16.8 K/uL (1.8-7.0); NEUT % 93.6 % (50.0-75.0); PLATELET COUNT 182 K/uL (130-400); RBC 3.83 Mil/uL (3.80-5.20); RED CELL DISTRIBUTION WIDTH 16.4 % (11.5-14.5)
[2018-07-19 03:54] LABS: INR 1.3; PROTHROMBIN TIME 14.6 SECONDS (9.7-12.2)
[2018-07-19] MEDS: Aritificial Tears (15ml) OU SCH ×4 (03:56→12:38)
--- NOTE | 2018-07-19 04:24 | CARDCATH ---
PROCEDURE DATE: 07/18/2018 INDICATIONS: Organ procurement. The patient was pronounced last evening, part of the organ sharing network being evaluated for pretransplant coronary status and LV function. PROCEDURE PERFORMED: Complete heart catheterization with selective left and right coronary angiogram. Right heart catheterization with hemodynamic and saturations. ANATOMICAL FINDINGS: Left main is a large-size vessel that bifurcates into left anterior descending and left circumflex coronary artery, free of any obstructive disease. LAD is a large sized vessel, gives off two medium-sized diagonal branches, free of any obstructive disease. Left circumflex vessel gives off a large size obtuse marginal branch, free of any obstructive disease. RCA, large size vessel, free of any obstructive disease, anterior take off. Impression, normal coronary. Left ventricular ejection fraction 50% to 55%. EDP was 34 mmHg. RA pressures, right heart cath pressure RA mean 14, RV 38/8 with end-diastolic pressure of 14. PA pressure 33/11 with a mean of 21, LV end-diastolic pressure was 24 mmHg. IMPRESSION: 1. Normal coronaries. 2. Normal left ventricular ejection fracture. 3. Normal pulmonary pressures. 4. Mildly elevated left ventricular pressure. Dat Ann MD
[2018-07-19 04:25] LABS: ALBUMIN 2.5 g/dL (3.5-5.0); BILIRUBIN,DIRECT 0.1 mg/dL (0.0-0.4); CALCIUM 9.1 mg/dl (8.6-10.4); CK-MB 11.1 ng/mL (0.0-3.38); TROPONIN I 1.61 ng/mL (0.00-0.120)
[2018-07-19 05:03] LABS: ANISOCYTOSIS SLIGHT; LYMPHOCYTE 4 % (20-40); MONOCYTE 2 % (0-10); NEUTROPHIL 94 % (50-75); PLATELET ESTIMATE NORMAL (NORMAL); TOTAL CELLS COUNTED 100
[2018-07-19] MEDS: SODIUM CHLORIDE 0.9% IVPB SCH (05:11)
[2018-07-19] MEDS: METHYLPREDNISOLONE IVPB SCH (05:11)
[2018-07-19 09:48] LABS: SQUAMOUS EPITHIAL 1 /hpf (0-5); URINE AMORPHOUS SEDIMENT FEW /ul (<OCC); URINE BACTERIA RARE (<OCC); URINE BILIRUBIN NEGATIVE (NEGATIVE); URINE BLOOD 2+ (NEGATIVE); URINE CLARITY Hazy (Clear); URINE COLOR Yellow (YELLOW); URINE GLUCOSE (UA) NORMAL (Normal); URINE LEUKOCYTE ESTERASE NEG Leu/uL (Negative); URINE PROTEIN 1+ mg/dL (NEGATIVE); URINE UROBILINOGEN NORMAL mg/dL (0.2-1.0)
[2018-07-19 10:02] LABS: HEMOGLOBIN 9.5 g/dL (11.0-16.0); LYMPH # 0.4 K/uL (1.0-4.3); LYMPH % 2.5 % (20.0-40.0); MEAN CELL VOLUME 82.5 fL (81.0-99.0); MEAN CORPUSCULAR HEMOGLOBIN 26.3 pg (27.0-31.0); MEAN CORPUSCULAR HGB CONC 31.8 g/dL (33.0-37.0); MEAN PLATELET VOLUME 10.1 fL (7.2-11.7); MONO # 0.6 K/uL (0.0-0.8); MONO % 3.2 % (0.0-10.0); NEUT # 16.4 K/uL (1.8-7.0); NEUT % 94.3 % (50.0-75.0); NRBC % 0.1 % (0.0-2.0); PLATELET COUNT 175 K/uL (130-400); RBC 3.62 Mil/uL (3.80-5.20); WHITE BLOOD COUNT 17.4 K/uL (4.8-10.8)
--- NOTE | 2018-07-19 10:09 | CARD ---
APPROVED REPORT Date of service: 07/19/2018 EXAM: Two-dimensional and M-mode echocardiogram with Doppler and color Doppler. Other Information Quality : GoodRhythm : INDICATION ORGAN DONOR 2D DIMENSIONS IVSd1.6 (0.7-1.1cm)LVDd3.7 (3.9-5.9cm) PWd1.5 (0.7-1.1cm)LA Hmofaz84 (18-58mL) LVDs2.0 (2.5-4.0cm)FS (%) 45.1 % LVEF (%)77.2 (>50%)LVEF (Soria's)70.73 % IVC0.00 cm M-Mode DIMENSIONS RVDd1.95 (2.1-3.2cm)Left Atrium (MM)3.78 (2.5-4.0cm) IVSd1.50 (0.7-1.1cm)Aortic Root3.10 (2.2-3.7cm) LVDd4.74 (4.0-5.6cm)Aortic Cusp Exc.2.24 (1.5-2.0cm) PWd1.42 (0.7-1.1cm)FS (%) 48 % LVDs2.45 (2.0-3.8cm)LVEF (%)80 (>50%) Mitral Valve MV E Alcqbmis41.9cm/sMV A Toqjsrtc37.5cm/sE/A ratio0.9 TDI Lateral E' Peak V7.84cm/sMedial E' Peak V5.64cm/sE/Lateral E'9.8 E/Medial E'13.6 Tricuspid Valve TR Peak Gdnplfge777zs/sTR Peak Gr.[id number] LEFT VENTRICLE The left ventricle is normal size. There is moderate to severe concentric left ventricular hypertrophy. The left ventricular function is normal. The left ventricular ejection fraction is within the normal range. There is normal LV segmental wall motion. Transmitral Doppler flow pattern is abnormal. RIGHT VENTRICLE The right ventricle is normal size. ATRIA The left atrium size is normal. The right atrium size is normal. AORTIC VALVE The aortic valve is normal in structure. MITRAL VALVE The mitral valve is normal in structure. TRICUSPID VALVE There is mild to moderate tricuspid regurgitation. <Conclusion> Normal LV systolic function. Severe LVH. Normal chamber size. Diastolic dysfunction. Mild to moderate TR. No other valvular abnormality seen
[2018-07-19 10:10] LABS: INR 1.4; PROTHROMBIN TIME 14.8 SECONDS (9.7-12.2)
[2018-07-19 10:27] LABS: ALBUMIN 2.5 g/dL (3.5-5.0); ALT/SGPT 20 U/L (9-52); AMYLASE 39 U/L (30-110); AST/SGOT 39 U/L (14-36); BLOOD UREA NITROGEN 21 mg/dL (7-17); GAMMA GLUTAMYL TRANSPEPTIDASE < 10 U/L (8-78); GFR NON-AFRICAN AMERICAN 47; LIPASE 16 U/L (23-300)
[2018-07-19] MEDS: cefTRIAXone 2 GM in Sodium Chloride 0.9% 100 ML IVPB SCH (10:47)
--- NOTE | 2018-07-19 10:47 | RAD ---
Date of service: 07/19/2018 HISTORY: vented;organ donor evaluation COMPARISON: Comparison is made with 07/18/2018 TECHNIQUE: 1 view obtained. FINDINGS: LUNGS: Opacity at the left lung base likely atelectasis. The ET tube is seen at appropriate position. PLEURA: No significant pleural effusion identified, no pneumothorax apparent. CARDIOVASCULAR: No aortic atherosclerotic calcification present. Normal cardiac size. No pulmonary vascular congestion. OSSEOUS STRUCTURES: No significant abnormalities. VISUALIZED UPPER ABDOMEN: NG tube seen extending to the abdomen. OTHER FINDINGS: None. IMPRESSION: New opacity at the left lung base likely atelectasis. Otherwise no interval changes.
[2018-07-19 10:53] LABS: ARTERIAL BLOOD GAS HCO3 22.5 mmol/L (21-28); ARTERIAL BLOOD GAS HEMOGLOBIN 9.3 g/dL (11.7-17.4); ARTERIAL BLOOD GAS PCO2 43 mm/Hg (35-45); ARTERIAL BLOOD GAS PH 7.33 (7.35-7.45); ARTERIAL BLOOD GAS PO2 216 mm/Hg (80-100)
[2018-07-19] MEDS: Vancomycin 1 gm/NS 200 ml 1 GM/200 ML BAG IVPB SCH (11:07)
[2018-07-19 11:19] LABS: BANDS 2 % (0-2); LYMPHOCYTE 3 % (20-40); MONOCYTE 3 % (0-10); NEUTROPHIL 92 % (50-75); TOTAL CELLS COUNTED 100
[2018-07-19 11:20] LABS: ANISOCYTOSIS SLIGHT; PLATELET ESTIMATE NORMAL (NORMAL)
[2018-07-19 11:21] LABS: HYPOCHROMIC SLIGHT
[2018-07-19 11:45] LABS: ARTERIAL BLOOD GAS HCO3 24.6 mmol/L (21-28); ARTERIAL BLOOD GAS HEMOGLOBIN 9.6 g/dL (11.7-17.4); ARTERIAL BLOOD GAS O2 SAT 99.7 % (95-98); ARTERIAL BLOOD GAS PCO2 46 mm/Hg (35-45); ARTERIAL BLOOD GAS PH 7.35 (7.35-7.45); ARTERIAL BLOOD GAS PO2 192 mm/Hg (80-100); ARTERIAL BLOOD GAS TCO2 26.8 mmol/L (22-28)
[2018-07-19 12:32] VITALS: BP 108/61
[2018-07-19 12:34] VITALS: TEMP 97.2
[2018-07-19 12:46] VITALS: PULSE 84
[2018-07-19] MEDS ORDERED: Rocuronium 10 mg/ml (5 ml) ONE (13:20)
[2018-07-19] MEDS ORDERED: Mannitol 12.5 gm/50 ml Inj IV ONE (15:05)
--- NOTE | 2018-07-19 16:01 | RAD ---
Date of service: 07/19/2018 PROCEDURE: CHEST RADIOGRAPH, 1 VIEW HISTORY: Organ Donor Protocol COMPARISON: Comparison is made with the previous same-day exam. FINDINGS: LUNGS: Diffuse haziness noted in the right lung. The ET tube is seen at appropriate position. PLEURA: Right-sided chest tube is seen in place CARDIOVASCULAR: No aortic atherosclerotic calcification present. Normal. OSSEOUS STRUCTURES: No significant abnormalities. VISUALIZED UPPER ABDOMEN: NG tube or feeding tube seen extending to the abdomen. OTHER FINDINGS: None. IMPRESSION: Stable appearance of diffuse haziness in the right chest since the prior study.
--- NOTE | 2018-07-21 20:56 | CARD ---
APPROVED REPORT Date of service: 07/19/2018 EKG Measurement Heart [id number] <Conclusion> Normal sinus rhythm Prolonged QT Abnormal ECG
--- NOTE | 2018-07-22 10:34 | CP.PCM.DIS ---
Provider - Provider Date of Admission: 07/16/18 22:07 Attending physician: Edwardo Reis Jr, MD Consults: 07/16/18 21:10 Critical Care Consult Stat Comment: Consulting Provider: Kathi Yeager Consulting Physician: Kathi Yeager Reason for Consult: unresponsive 07/16/18 21:30 Physician Consult Stat Comment: Consulting Provider: Sher Phan Consulting Physician: Sher Phan Reason for Consult: ICH 07/16/18 21:40 Neurology Consult Stat Comment: Consulting Provider: Sergey Spicer Consulting Physician: Sergey Spicer Reason for Consult: ICH Time Spent in preparation of Discharge (in minutes): 30 Diagnosis - Discharge Diagnosis (1) Brain Status: Acute (2) Sudden cardiac arrest Status: Acute (3) History of hypertension Status: Chronic (4) Intracranial hemorrhage Status: Acute Hospital Course - Lab Results Lab Results: Micro Results 07/19/18 09:31 Blood-Venous Blood Culture - Preliminary NO GROWTH AFTER 3 DAYS 07/19/18 09:31 Blood-Venous Blood Culture - Preliminary NO GROWTH AFTER 3 DAYS 07/16/18 22:07 Blood Blood Culture - Final NO GROWTH AFTER 5 DAYS 07/16/18 22:07 Blood Gram Stain - Final TEST NOT PERFORMED 07/16/18 22:07 Blood Blood Culture - Final NO GROWTH AFTER 5 DAYS 07/16/18 22:07 Blood Gram Stain - Final TEST NOT PERFORMED 07/17/18 21:00 Blood-Venous Blood Culture - Preliminary NO GROWTH AFTER 4 DAYS 07/17/18 21:30 Blood-Venous Blood Culture - Preliminary NO GROWTH AFTER 4 DAYS 07/19/18 09:31 Trachasp Gram Stain - Final 07/19/18 09:31 Trachasp Sputum Culture - Final NORMAL ORAL YANCY 07/19/18 09:31 Urine,Catheterized Urine Culture - Final No Growth (<1,000 CFU/ML) 07/17/18 21:46 Trachasp Gram Stain - Final 07/17/18 21:46 Trachasp Sputum Culture - Final No growth. 07/17/18 21:36 Urine,Catheterized Urine Culture - Final No Growth (<1,000 CFU/ML) 07/16/18 21:21 Urine,Basurto Urine Culture - Final No Growth (<1,000 CFU/ML) 07/17/18 05:45 Naris MRSA Culture (Admit) - Final MRSA NOT DETECTED Most Recent Lab Values WBC 17.4 K/uL (4.8-10.8) H 07/19/18 09:57 RBC 3.62 Mil/uL (3.80-5.20) L 07/19/18 09:57 Hgb 9.5 g/dL (11.0-16.0) L 07/19/18 09:57 Hct 29.9 % (34.0-47.0) L 07/19/18 09:57 MCV 82.5 fL (81.0-99.0) 07/19/18 09:57 MCH 26.3 pg (27.0-31.0) L 07/19/18 09:57 MCHC 31.8 g/dL (33.0-37.0) L 07/19/18 09:57 RDW 16.0 % (11.5-14.5) H 07/19/18 09:57 Plt Count 175 K/uL (130-400) 07/19/18 09:57 MPV 10.1 fL (7.2-11.7) 07/19/18 09:57 Neut % (Auto) 94.3 % (50.0-75.0) H 07/19/18 09:57 Lymph % (Auto) 2.5 % (20.0-40.0) L 07/19/18 09:57 Dickey % (Auto) 3.2 % (0.0-10.0) 07/19/18 09:57 Eos % (Auto) 0.0 % (0.0-4.0) 07/19/18 09:57 Baso % (Auto) 0.0 % (0.0-2.0) 07/19/18 09:57 Neut # (Auto) 16.4 K/uL (1.8-7.0) H 07/19/18 09:57 Lymph # (Auto) 0.4 K/uL (1.0-4.3) L 07/19/18 09:57 Dickey # (Auto) 0.6 K/uL (0.0-0.8) 07/19/18 09:57 Eos # (Auto) 0.0 K/uL (0.0-0.7) 07/19/18 09:57 Baso # (Auto) 0.0 K/uL (0.0-0.2) 07/19/18 09:57 Neutrophils % (Manual) 92 % (50-75) H 07/19/18 09:57 Band Neutrophils % 2 % (0-2) 07/19/18 09:57 Lymphocytes % (Manual) 3 % (20-40) L 07/19/18 09:57 Reactive Lymphs % 1 % (0-0) H 07/17/18 07:15 Monocytes % (Manual) 3 % (0-10) 07/19/18 09:57 Differential Comment 07/16/18 20:57 Platelet Estimate Normal (NORMAL) 07/19/18 09:57 Plt Clumps, EDTA Present 07/18/18 15:53 Large Platelets Present 07/18/18 15:53 Giant Platelets Present 07/18/18 15:53 Hypochromasia (manual) Slight 07/19/18 09:57 Anisocytosis (manual) Slight 07/19/18 09:57 Tear Drop Cells Slight 07/18/18 09:44 Ovalocytes Slight 07/18/18 09:44 PT 14.8 SECONDS (9.7-12.2) H 07/19/18 09:57 INR 1.4 07/19/18 09:57 APTT 28 SECONDS (21-34) 07/19/18 09:57 Fibrinogen 318 mg/dL (200-400) 07/17/18 07:11 Puncture Site Suzanne 07/19/18 11:42 pCO2 46 mm/Hg (35-45) H 07/19/18 11:42 pO2 192 mm/Hg (80-100) H 07/19/18 11:42 HCO3 24.6 mmol/L (21-28) 07/19/18 11:42 ABG pH 7.35 (7.35-7.45) 07/19/18 11:42 ABG Total CO2 26.8 mmol/L (22-28) 07/19/18 11:42 ABG O2 Saturation 99.7 % (95-98) H 07/19/18 11:42 ABG Base Excess -0.4 mmol/L (-2.0-3.0) 07/19/18 11:42 ABG Hemoglobin 9.6 g/dL (11.7-17.4) L 07/19/18 11:42 ABG Carboxyhemoglobin 1.3 % (0.5-1.5) 07/19/18 11:42 POC ABG HHb (Measured) 0.3 % (0.0-5.0) 07/19/18 11:42 ABG Methemoglobin 1.1 % (0.0-3.0) 07/19/18 11:42 Leobardo Test N/a 07/19/18 11:42 ABG Potassium 4.5 mmol/L (3.6-5.2) 07/17/18 13:53 VBG pH 7.33 (7.32-7.43) 07/18/18 17:40 VBG pCO2 52 mmHg (40-60) 07/18/18 17:40 VBG HCO3 25.1 mmol/L 07/18/18 17:40 VBG Total CO2 29.0 mmol/L (22-28) H 07/18/18 17:40 VBG O2 Sat (Calc) 91.2 % (40-65) H 07/18/18 17:40 VBG Base Excess 0.6 mmol/L (0.0-2.0) 07/18/18 17:40 VBG Potassium 4.1 mmol/L (3.6-5.2) 07/18/18 17:40 A-a O2 Difference 464.0 mm/Hg 07/19/18 11:42 Respiratory Index 2.4 07/19/18 11:42 Hgb O2 Saturation 97.3 % (95.0-98.0) 07/19/18 11:42 Sodium 152.0 mmol/l (132-148) H 07/18/18 17:40 Chloride 120.0 mmol/L (98-107) H 07/18/18 17:40 Glucose 160 mg/dl (65-105) H 07/18/18 17:40 Lactate 1.1 mmol/L (0.7-2.1) 07/18/18 17:40 Liter Flow 10.0 07/17/18 13:53 Vent Mode Prvc 07/19/18 11:42 Mechanical Rate 10 07/19/18 11:42 FiO2 100.0 % 07/19/18 11:42 Tidal Volume 500 07/19/18 11:42 PEEP 5 07/19/18 11:42 Crit Value Called To 07/17/18 13:53 Crit Value Called By Cruz yeager,rt 07/17/18 13:53 Crit Value Read Back Y 07/17/18 13:53 Blood Gas Notified Time 1415 07/17/18 13:53 Sodium 153 mmol/L (132-148) H 07/19/18 09:57 Potassium 3.9 mmol/L (3.6-5.2) 07/19/18 09:57 Chloride 123 mmol/L (98-107) H 07/19/18 09:57 Carbon Dioxide 27 mmol/L (22-30) 07/19/18 09:57 Anion Gap 6 (10-20) L 07/19/18 09:57 BUN 21 mg/dL (7-17) H 07/19/18 09:57 Creatinine 1.2 mg/dL (0.7-1.2) 07/19/18 09:57 Est GFR ( Amer) 57 07/19/18 09:57 Est GFR (Non-Af Amer) 47 07/19/18 09:57 POC Glucose (mg/dL) 138 mg/dL (65-110) H 07/19/18 09:51 Random Glucose 130 mg/dL (65-105) H 07/19/18 09:57 Hemoglobin A1c 5.6 % (4.2-6.5) 07/17/18 21:36 Lactic Acid 1.4 mmol/L (0.7-2.1) 07/19/18 09:57 Calcium 9.0 mg/dl (8.6-10.4) 07/19/18 09:57 Phosphorus 4.4 mg/dL (2.5-4.5) 07/19/18 09:57 Magnesium 2.7 mg/dL (1.6-2.3) H 07/19/18 09:57 Total Bilirubin < 0.1 mg/dL (0.2-1.3) L 07/19/18 09:57 Direct Bilirubin 0.0 mg/dL (0.0-0.4) 07/19/18 09:57 GGT < 10 U/L (8-78) 07/19/18 09:57 AST 39 U/L (14-36) H 07/19/18 09:57 ALT 20 U/L (9-52) 07/19/18 09:57 Alkaline Phosphatase 59 U/L (38-126) 07/19/18 09:57 Ammonia < 9 umol/L (9-33) L 07/16/18 21:43 Lactate Dehydrogenase 585 U/L (313-618) 07/19/18 09:57 Total Creatine Kinase 565 U/L (30-135) H 07/19/18 09:57 CK-MB (Mass) 11.1 ng/mL (0.0-3.38) H 07/19/18 03:42 Troponin I 1.4100 ng/mL (0.00-0.120) H* 07/19/18 09:57 NT-Pro-B Natriuret Pep 296 pg/mL (0-900) 07/16/18 21:43 Total Protein 5.0 g/dL (6.3-8.3) L 07/19/18 09:57 Albumin 2.5 g/dL (3.5-5.0) L 07/19/18 09:57 Globulin 2.5 gm/dL (2.2-3.9) 07/19/18 09:57 Albumin/Globulin Ratio 1.0 (1.0-2.1) 07/19/18 09:57 Amylase 39 U/L (30-110) 07/19/18 09:57 Lipase 16 U/L (23-300) L 07/19/18 09:57 Arterial Blood Potassium 4.5 mmol/L (3.6-5.2) 07/17/18 13:53 Venous Blood Potassium 4.1 mmol/L (3.6-5.2) 07/18/18 17:40 Urine Color Yellow (YELLOW) 07/19/18 09:31 Urine Clarity Hazy (Clear) 07/19/18 09:31 Urine pH 5.0 (5.0-8.0) 07/19/18 09:31 Ur Specific [place] 1.025 (1.003-1.030) 07/19/18 09:31 Urine Protein 1+ mg/dL (NEGATIVE) H 07/19/18 09:31 Urine Glucose (UA) Normal mg/dL (Normal) 07/19/18 09:31 Urine Ketones Negative mg/dL (NEGATIVE) 07/19/18 09:31 Urine Blood 2+ (NEGATIVE) H 07/19/18 09:31 Urine Nitrate Negative (NEGATIVE) 07/19/18 09:31 Urine Bilirubin Negative (NEGATIVE) 07/19/18 09:31 Urine Urobilinogen Normal mg/dL (0.2-1.0) 07/19/18 09:31 Ur Leukocyte Esterase Neg Danny/uL (Negative) 07/19/18 09:31 Urine WBC (Auto) 17 /hpf (0-5) H 07/19/18 09:31 Urine RBC (Auto) 13 /hpf (0-3) H 07/19/18 09:31 Ur Squamous Epith Cells 1 /hpf (0-5) 07/19/18 09:31 Amorphous Sediment Few /ul (<OCC) H 07/19/18 09:31 Urine Bacteria Rare (<OCC) 07/19/18 09:31 Salicylates < 1.0 mg/dL 1 07/16/18 20:57 Opiates (GC/MS) negative 07/17/18 07:11 Urine Opiates Screen Negative (NEGATIVE) 07/16/18 21:21 Ur Opiates (GC/MS) Negative 300 (Negative) 07/16/18 21:56 Methadone (GC/MS) negative 07/17/18 07:11 Urine Methadone Screen Negative (NEGATIVE) 07/16/18 21:21 Ur Methadone, Qual Negative 300 (Negative) 07/16/18 21:56 Propoxyphenes negative 07/17/18 07:11 Urine Propoxyphene Negative 300 (Negative) 07/16/18 21:56 Methaqualone Negative 300 (Negative) 07/16/18 21:56 Acetaminophen < 10.0 ug/mL (10.0-30.0) L 07/16/18 20:57 Barbiturates negative 07/17/18 07:11 Ur Barbiturates Screen Negative (NEGATIVE) 07/16/18 21:21 Ur Barbiturates, Qual Negative 300 (Negative) 07/16/18 21:56 Phencyclidine (PCP) negative 07/17/18 07:11 Ur Phencyclidine Scrn Negative (NEGATIVE) 07/16/18 21:21 Ur Phencyclidine (PCP) Negative 25 (Negative) 07/16/18 21:56 Amphetamines negative 07/17/18 07:11 Ur Amphetamines Screen Negative 1000 (Negative) 07/16/18 21:56 Benzodiazepines negative 07/17/18 07:11 U Benzodiazepines Scrn Negative (NEGATIVE) 07/16/18 21:21 U Benzodiazepines Qual Negative 300 (Negative) 07/16/18 21:56 Cocaine & Metabolite negative 07/17/18 07:11 Urine Cocaine Negative 300 (Negative) 07/16/18 21:56 U Oth Cocaine Metabols Negative (NEGATIVE) 07/16/18 21:21 U Cannabinoids Screen Negative (NEGATIVE) 07/16/18 21:21 Marijuana negative 07/17/18 07:11 U Marijuana (THC) Screen Negative 50 (Negative) 07/16/18 21:56 Drugs of Abuse Note See note 07/16/18 21:56 Drugs of Abuse Comment See note 07/17/18 07:11 Alcohol, Quantitative < 10 mg/dl (0-10) 07/16/18 21:43 Blood Type A POSITIVE 07/16/18 20:57 Antibody Screen Negative 07/16/18 20:57 - Hospital Course Hospital Course: This is 52 y o female PMhx HTN, s/p gastric sleeve, who presented to the ED on 07/16/17 s/p unresponsiveness. Per family member of pt, pt was at a meeting with a friend when she suddenly became unresponsive. EMS was called at that time and pt was brought into the ED by BLS, pt was intubated in the ED. CT head demonstrated intraparenchymal hemorrhage. Neurosurgery (Dr. Flores) was consulted, who stated that pt did not qualify as a surgical candidate with her clinical presentation. Admitted to ICU for further monitoring. Pt was declared brain at 14:15 on 07/17/18, family and PMD were informed. Sharing network was called, family agreed to organ donation. For further details of hospital course, please refer to EMR. Discharge Exam - Head Exam Head Exam: ATRAUMATIC, NORMOCEPHALIC Additional comments: Pt , details of physical exam noted in pronouncement of note. Discharge Plan - Follow Up Plan Condition: FAIR Disposition: WITH WITHOUT AUTOPSY
--- NOTE | 2018-07-23 07:29 | CARD ---
APPROVED REPORT Date of service: 07/18/2018 EKG Measurement Heart [id number] <Conclusion> Normal sinus rhythm Prolonged QT Abnormal ECG
--- NOTE | 2018-07-23 07:34 | CARD ---
APPROVED REPORT Date of service: 07/18/2018 EKG Measurement Heart [id number] <Conclusion> Normal sinus rhythm Inferior infarct, age undetermined Prolonged QT Abnormal ECG
--- NOTE | 2018-07-23 09:49 | PCM.EEG ---
Electroencephalogram Report - Electroencephalogram Report Procedure Date: 07/17/18 Medication: None listed Interpretation: Technical Information: This was a 16-channel EEG, 1-channel EKG routine EEG performed using IMVU equipment. Electrodes were applied using the 10/20 international placement system. Start; 1;05 End; 1;35 Total 30 min Clinical Information: Coma EEG Details During the entire study was not discernible awake EEG architecture, the tracing showed diffuse bilateral attenuation with frequencies in the 4 to 5 Hz., there was no reactivity of the EEG. There was more attention seen on the right side. Drowsiness not seen, sleep not seen. Hyperventilation was not performed. Photic stimulation was not performed. Interictal activity; none Focal abnormality; right sided attenuation Impression: This is an abnormal EEG record that demonstrate the presence of severe non specific diffuse disturbance of cortical activity, this is keeping with a diffuse suarez matter dysfunction, these findings re not specific. Findings are also in keeping with a focal cortical abnormality involving the right hemisphere. No seizures. Patient is not in status epilepticus.
== END 2018-07-17 14:15 | DRG 810 ==
LOC: C.ER 20:30 → C.9I 22:07
PROVIDERS: ADMIT Internal Medicine; ATTEND Internal Medicine
PROC: 0BH17EZ Insertion of Endotracheal Airway into Trachea, Via Natural or Artificial Opening (ICD-10-PCS; principal; 2018-07-16)
PROC: 5A1945Z Respiratory Ventilation, 24-96 Consecutive Hours (ICD-10-PCS; 2018-07-16)
PROC: 0W9930Z Drainage of Right Pleural Cavity with Drainage Device, Percutaneous Approach (ICD-10-PCS; 2018-07-16)
PROC: 4A143B0 Monitoring of Venous Pressure, Central, Percutaneous Approach (ICD-10-PCS; 2018-07-16)
DX: I60.9 Nontraumatic subarachnoid hemorrhage, unspecified (principal); I65.21 Occlusion and stenosis of right carotid artery; I46.9 Cardiac arrest, cause unspecified; I10 Essential (primary) hypertension; I62.00 Nontraumatic subdural hemorrhage, unspecified; J45.909 Unspecified asthma, uncomplicated; Z98.84 Bariatric surgery status